=== PATIENT | female | born 1955 | race Caucasian/White ===

== ENCOUNTER 2018-06-25 16:10 | Outpatient (CLI) | payer OTHER, SELFPAY ==
[2018-06-25 16:38] LABS: HCT 44.9 % (36.0-46.0); HGB 14.8 g/dL (12.0-15.5); Mean Corpuscular Hemoglobin 27.6 pg (27.0-33.0); Mean Corpuscular Volume 83.8 fL (80-95); Mean Platelet Volume 11.6 fL (8.0-11.0); Platelet Count 257 x1000/uL (130-400); RBC 5.36 m/cumm (4.00-5.20); RBC Distribution Width 13.9 % (11.7-14.6); White Blood Cell Count 8.05 k/cumm (4.4-10.8)
[2018-06-25 16:57] LABS: Hemoglobin A1C 10.6 % (4.5-6.2)
[2018-06-25 17:26] LABS: ALT 65 U/L (12-78); AST 36 U/L (15-37); Albumin 3.7 g/dL (3.4-5.0); Alkaline Phosphatase 86 U/L (46-116); Anion Gap 8.1 mmol/L (3-11); BUN 12 mg/dL (7-18); Bilirubin, Total 0.5 mg/dL (0.2-1.0); CO2 28.9 mmol/L (21.0-32.0); Calcium 9.7 mg/dL (8.5-10.1); Chloride 98 mmol/L (98-107); Cholesterol 282 mg/dL (50-200); Glucose 204 mg/dL (70-100); HDL Cholesterol 49 mg/dL (40-60); LDL CHOLESTEROL 202 mg/dL (<100); Potassium 4.6 mmol/L (3.5-5.1); Sodium 135 mmol/L (136-145); TSH 2.28 uIU/mL (0.358-3.74); Triglyceride 281 mg/dL (30-150)
== END 2018-06-25 16:30 ==
PROVIDERS: PCP Family Medicine; Visit Provider Family Medicine
DX: E78.5 Hyperlipidemia, unspecified (principal); E11.9 Type 2 diabetes mellitus without complications; E03.9 Hypothyroidism, unspecified
CPT/HCPCS: 36415; 80053; 80061; 82306; 83721; 85027; 83036; 84443

== ENCOUNTER 2018-12-12 11:00 | Outpatient (CLI) | payer OTHER, SELFPAY ==
[2018-12-12 13:09] LABS: HCT 41.9 % (36.0-46.0); HGB 13.8 g/dL (12.0-15.5)
== END 2018-12-12 11:20 ==
PROVIDERS: PCP Family Medicine
DX: T14.8XXA Other injury of unspecified body region, initial encounter (principal); S30.1XXA Contusion of abdominal wall, initial encounter
CPT/HCPCS: 36415; 85014; 85018

== ENCOUNTER 2019-01-02 09:44 | Outpatient (CLI) | payer OTHER, SELFPAY ==
[2019-01-02 11:21] LABS: Hemoglobin A1C 11.3 % (4.5-6.2)
[2019-01-02 11:56] LABS: Anion Gap 7.4 mmol/L (3-11); BUN 15 mg/dL (7-18); CO2 27.6 mmol/L (21.0-32.0); CREATININE 0.62 mg/dL (0.55-1.02); Calcium 9.7 mg/dL (8.5-10.1); Chloride 99 mmol/L (98-107); Glucose 300 mg/dL (70-100); Potassium 4.9 mmol/L (3.5-5.1); Sodium 134 mmol/L (136-145)
[2019-01-02 13:34] LABS: COMMENT (LAB VIEW ONLY) 145.89 mg/dL; Microalb ug/mg Crea 10.1 ug/mg Cr
[2019-01-02 13:50] LABS: Calculated LDL 181; Cholesterol 271 mg/dL (50-200); HDL Cholesterol 51 mg/dL (40-60); Triglyceride 199 mg/dL (30-150)
[2019-01-03 06:22] LABS: Vitamin D 25 Total 26.2 ng/ml (30-100)
== END 2019-01-02 10:04 ==
PROVIDERS: PCP Family Medicine; Visit Provider Family Medicine
DX: E11.65 Type 2 diabetes mellitus with hyperglycemia (principal); E55.9 Vitamin D deficiency, unspecified
CPT/HCPCS: 36415; 80048; 80061; 82306; 83721; 82043; 82570; 83036

== ENCOUNTER 2019-01-30 00:34 | Outpatient (CLI) | payer OTHER, SELFPAY ==
--- NOTE | 2019-01-30 14:01 | MERGE_ITS ---
*[facility]* *[facility]* [address] [place] [address] Date of study: 01/30/2019 Transthoracic Echocardiography M-mode, complete 2D, complete spectral Doppler, and color Doppler *STUDY CONCLUSIONS* Summary: 1. Left ventricle: The cavity size was normal. Wall thickness was normal. Systolic function was normal. The estimated ejection fraction was 60-65%. Wall motion was normal; there were no regional wall motion abnormalities. 2. Aortic valve: There was mild to moderate stenosis. Peak velocity (S): 2.6m/sec. Mean gradient (S): 15mm Hg. Valve area (VTI): 1.4cm^2. 3. Right ventricle: The cavity size was normal. Wall thickness was normal. Systolic function was normal. *PATIENT PRESENTATION* Height: 160cm (63in ) S/D Pressure: 135 / 77 Weight: 109.8kg (241.5lb ) BSA: 2.27m^2 Test start time: 02:10 PM. Test stop time: 04:10 PM. PERFORMING Unknown ORDERING Yi Edwards REFERRING Yi Edwards PERFORMING [facility] MAINTENANCE DATA ANALYST RT Devon Ordaz)JOE (CT) *PROCEDURE DATA* Procedure information: The patient was identified by two identifiers. This study was interpreted by [facility]. Pertinent images and digital data are archived for permanent storage and are available for subsequent review. Comparison was made to the study of 10/01/2003. Study status: Routine. Transthoracic echocardiography. M-mode, complete 2D, complete spectral Doppler, and color Doppler. A Transthoracic Echocardiogram was performed. Scanning was performed from the parasternal, apical, subcostal, and suprasternal notch acoustic windows. Images were obtained using an [id number] cardiac ultrasound machine. Image quality was good. Study completion: The patient tolerated the procedure well. There were no complications. History: PMH: Cardiac murmur systolic R01.1. *CARDIAC ANATOMY* Left ventricle: The cavity size was normal. Wall thickness was normal. Systolic function was normal. The estimated ejection fraction was 60-65%. Wall motion was normal; there were no regional wall motion abnormalities. Some parameters suggest diastolic dysfunction. Aortic valve: Trileaflet; mildly thickened, mildly calcified leaflets. Valve mobility was restricted. Doppler: There was mild to moderate stenosis. There was no significant regurgitation. VTI ratio of LVOT to aortic valve: 0.44. Valve area (VTI): 1.4cm^2. Indexed valve area (VTI): 0.6cm^2/m^2. Peak velocity ratio of LVOT to aortic valve: 0.4. Valve area (Vmax): 1.3cm^2. Indexed valve area (Vmax): 0.6cm^2/m^2. Mean velocity ratio of LVOT to aortic valve: 0.45. Valve area (Vmean): 1.4cm^2. Indexed valve area (Vmean): 0.6cm^2/m^2. Mean gradient (S): 15mm Hg. Peak gradient (S): 27.8mm Hg. Aorta: Aortic root: The aortic root was normal in size. Ascending aorta: The ascending aorta was normal in size. Mitral valve: Mildly thickened leaflets. Mobility was not restricted. Doppler: Transvalvular velocity was within the normal range. There was no evidence for stenosis. There was no significant regurgitation. Valve area by pressure half-time: 3.4cm^2. Indexed valve area by pressure half-time: 1.5cm^2/m^2. Left atrium: The atrium was normal in size. Right ventricle: The cavity size was normal. Wall thickness was normal. Systolic function was normal. Pulmonic valve: Structurally normal valve. Doppler: Transvalvular velocity was within the normal range. There was no evidence for stenosis. There was trivial regurgitation. Peak gradient (S): 4mm Hg. Tricuspid valve: Structurally normal valve. Doppler: Transvalvular velocity was within the normal range. There was no evidence for stenosis. There was trivial regurgitation. Pulmonary artery: Systolic pressure could not be accurately estimated. Right atrium: The atrium was normal in size. Pericardium: There was no pericardial effusion. Systemic veins: Inferior vena cava: Not well visualized. The vessel was normal in size. Baseline ECG: Normal sinus rhythm. Measurements Left ventricle Value Reference LV ID, ED, PLAX 4.8 cm 3.5 - 6.0 LV ID, ES, PLAX 3.1 cm 2.1 - 4.0 LV PW thickness, ED, PLAX 0.9 cm LV end-diastolic volume, 1-p A2C 124 ml LV ejection fraction, 1-p A2C 58 % LV end-diastolic volume, 1-p A4C 87 ml LV ejection fraction, 1-p A4C 62 % LV e', lateral 0.079 m/sec LV E/e', lateral 8 LV e', medial 0.073 m/sec LV E/e', medial 8 LV e', average 0.076 m/sec LV E/e', average 8 Ventricular septum Value Reference IVS thickness, ED, PLAX 0.9 cm LVOT Value Reference LVOT ID, S 2.0 cm LVOT ID, A-P 2.0 cm LVOT area 3.1 cm^2 LVOT peak velocity, S 1.05 m/sec LVOT mean velocity, S 0.82 m/sec LVOT VTI, S 22.7 cm LVOT peak gradient, S 4.4 mm Hg LVOT mean gradient, S 3 mm Hg Stroke volume (SV), LVOT DP 66 ml Stroke index (SV/bsa), LVOT DP 29 ml/m^2 Aortic valve Value Reference Aortic valve peak velocity, S 2.6 m/sec Aortic valve mean velocity, S 1.8 m/sec Aortic valve VTI, S 51.0 cm Aortic mean gradient, S 15 mm Hg Aortic peak gradient, S 27.8 mm Hg VTI ratio, LVOT/AV 0.44 Aortic valve area, VTI 1.4 cm^2 Velocity ratio, peak, LVOT/AV 0.4 Aortic valve area, peak velocity 1.3 cm^2 Velocity ratio, mean, LVOT/AV 0.45 Aortic valve area, mean velocity 1.4 cm^2 Aortic valve area/bsa, mean velocity 0.6 cm^2/m^2 Aorta Value Reference Aortic root ID, ED 2.7 cm Ascending aorta ID, A-P, S 2.8 cm RVOT Value Reference RVOT VTI, S 17.9 cm Left atrium Value Reference LA ID, A-P, ES 4.0 cm LA ID/bsa, A-P 1.8 cm/m^2 <=2.2 LA volume, ES, 2-p 37 ml LA volume/bsa, ES, 2-p 16 ml/m^2 LA/aortic root ratio 1.5 Mitral valve Value Reference Mitral E-wave peak velocity 0.6 m/sec Mitral A-wave peak velocity 0.76 m/sec Mitral deceleration time 221 ms 150 - 230 Mitral pressure half-time 64 ms Mitral E/A ratio, peak 0.79 Mitral valve area, PHT, DP 3.4 cm^2 Pulmonary veins Value Reference Pulmonary vein peak velocity, S 0.6 m/sec Pulmonary vein peak velocity, D 0.45 m/sec Pulmonary vein velocity ratio, peak, 1.32 S/D Pulmonary vein A-wave reversal peak 0.31 m/sec velocity Pulmonary vein A-wave reversal 111 ms duration Tricuspid valve Value Reference Tricuspid regurg peak velocity 2.2 m/sec Tricuspid peak RV-RA gradient 18.7 mm Hg Right atrium Value Reference RA area, ES, A4C 14.3 cm^2 8.3 - 19.5 Pulmonic valve Value Reference Pulmonic peak gradient, S 4 mm Hg Pulmonic regurg velocity, ED 1 m/sec Legend: (L) and (H) dorian values outside specified reference range. I have personally reviewed the images and have reviewed and edited the reported findings. Electronically signed by Kj Alvarez 01/31/2019 08:25
== END 2019-01-30 00:54 ==
PROVIDERS: PCP Family Medicine; Visit Provider Family Medicine
DX: R01.1 Cardiac murmur, unspecified (principal); I10 Essential (primary) hypertension; E11.9 Type 2 diabetes mellitus without complications; I35.0 Nonrheumatic aortic (valve) stenosis
CPT/HCPCS: 93306

== ENCOUNTER 2019-04-29 22:49 | Emergency (ER) | payer OTHER, SELFPAY ==
[2019-04-29 22:52] VITALS: BP 160/80; PULSE 100; RESP 24; TEMP 36.2; O2SAT 99
--- NOTE | 2019-04-29 23:11 | ED.GENADUL_ITS ---
Discharge Plan Disposition Patient Disposition: HOME Condition: Good Discharge Details Chief Complaint: HeadInjury Clinical Impression: Multiple abrasions, Contusion of right lower leg, initial encounter, Fall (on) (from) other stairs and steps, initial encounter Primary Care Provider: Yi Edwards ED Provider: Avery Aguilar [place] Meds and New Rx's Prescriptions: Continued Collegen Powder 1 applic PO DAILY RF: 0 MCT Oil 7.7 kcal/mL oil 15 ml PO DAILY RF: 0 omega-3 fatty acids [Fish Oil Concentrate] 1,000 mg capsule 1,000 mg PO DAILY RF: 0 ascorbic acid (vitamin C) [Vitamin C With Ronna Hips] 500 MG tablet 500 mg PO daily prn RF: 0 vitamin B complex 1 EACH tablet 1 ea PO daily prn RF: 0 Calcium Magnesium + D 1 EACH tablet 1 ea PO BID PRN RF: 0 C-PAP RF: 0 triamcinolone acetonide 15 GM cream 1 addison Topical BID PRNQty: 15 RF: 4 chlorhexidine gluconate [Hibiclens] 236 ML liquid 1 addison Topical DAILY PRNQty: 236 RF: 11 clotrimazole-betamethasone 15 GM cream 15 gm Topical BID PRNQty: 2 RF: 2 ibuprofen 600 MG tablet 600 mg PO Q8H PRN Qty: 100 RF: 3 Lantus Solostar U-100 Insulin 100 UNIT/1 ML insulin pen 50 u SQ HS Qty: 4 RF: 4 levothyroxine 75 mcg tablet 75 mcg PO DAILY Qty: 90 RF: 2 cholecalciferol (vitamin D3) 1,000 unit tablet 2,000 unit PO DAILY RF: 0 losartan 25 mg tablet 25 mg PO DAILY Qty: 90 RF: 4 fluconazole 150 mg tablet 150 mg PO ONCE Qty: 6 RF: 2 metformin [Glucophage] 850 mg tablet 850 mg PO BID Qty: 180 RF: 4 (DME) Blood Glucose Test Strip See Rx Instructions .ROUTE .MEDSUPPLY Qty: 100 RF: 4 (DME) pen needle, diabetic [Comfort EZ Pen [place]] 31 gauge x 3/16 needle See Rx Instructions .ROUTE .MEDSUPPLY Qty: 100 RF: 4 Discharge Instructions Instructions: Contusion in Adults (ED), Abrasion (ED) Additional Instructions: You may use acetaminophen or ibuprofen for discomfort. Ice the contusion on your lower leg for the next couple of days. Keep your abrasions clean and dry. Follow-up with primary care next week if continued problems. Return to ED for neurologic changes, mental status changes, difficulty breathing, abdominal pain, vomiting, signs of infection. Referrals: Yi Edwards MD [Primary Care Provider] - Medical Decision Making Patient complains of some mild neck pain while she is been here. She does not have midline tenderness. Will scan her head and C-spine. There are no lacerations requiring closing. Just some abrasions on the scalp right elbow. She has no midline spinal tenderness of the back. Pelvis is stable. Chest wall is nontender. Extremities are unremarkable. No imaging or laboratory studies required. Tetanus status is up-to-date as there are no tetanus prone wounds and last TdaP was 2010. CT head and cervical spine negative. Chest x-ray was ordered as she complained of pain between her scapula when she arrived in the radiology suite. This is negative. Patient can be discharged home. Ibuprofen or acetaminophen as needed for pain. Keep abrasions clean and dry. Follow-up with primary care next week if any issues. Return to ED for neurologic changes, mental status changes, difficulty breathing, abdominal pain. HPI General Mode of arrival: EMS . Date/Time Provider Initiated Documentation: 04/29/19 23:03 . Limitations to Documentation: no limitations . Information obtained by: patient and RN notes reviewed . HPI Narrative: Patient presents to ED by ambulance status post fall down a couple of her basement steps. She was trying to get a pallet up the stairs. She lost her balance on the second or third step up and fell backwards. She struck her head on another pallet that was in the basement. She did not have a loss of consciousness. She felt woozy and wobbly but was able to stand. She has some right leg pain from where the pallet she was carrying fell on her. She denies any neck pain. She has some low back pain but that is a chronic problem and she cannot tell whether it is worse or not. She was able to stand and ambulate. She denies chest pain or shortness of breath. She denies numbness, tingling, weakness. She does have a headache. There is no nausea or vomiting. Related Data Home Medications Medication Instructions Recorded Confirmed ascorbic acid (vitamin C) [Vitamin 500 mg PO daily prn 11/01/12 04/29/19 C With Ronna Hips] vitamin B complex 1 ea PO daily prn 11/01/12 04/29/19 Calcium Magnesium + D 1 ea PO BID PRN 04/16/13 04/29/19 C-Pap 07/04/14 01/03/19 triamcinolone acetonide 1 addison TOPICAL BID PRN #15 gm 09/16/14 04/29/19 chlorhexidine gluconate [Hibiclens] 1 addison TOPICAL DAILY PRN #236 ml 08/01/17 04/29/19 clotrimazole-betamethasone 15 gm TOPICAL BID PRN #2 tube 08/30/17 04/29/19 ibuprofen 600 mg PO Q8H PRN #100 tab-cap 12/22/17 04/29/19 Lantus Solostar U-100 Insulin 50 u SQ HS #4 box 01/17/18 04/29/19 levothyroxine 75 mcg tablet 75 mcg PO DAILY #90 tab-cap 06/04/18 04/29/19 cholecalciferol (vitamin D3) 1,000 2,000 unit PO DAILY tab 06/27/18 04/29/19 unit (25 mcg) tablet losartan 25 mg tablet 25 mg PO DAILY #90 tab 07/14/18 04/29/19 omega-3 fatty acids 1,000 mg 1,000 mg PO DAILY 12/12/18 04/29/19 capsule Collegen Powder 1 applic PO DAILY 01/03/19 04/29/19 medium chain triglycerides 7.7 15 ml PO DAILY ml 01/03/19 04/29/19 kcal/mL oral oil fluconazole 150 mg tablet 150 mg PO ONCE #6 tab 01/22/19 04/29/19 metformin 850 mg tablet 850 mg PO BID #180 tab-cap 01/22/19 04/29/19 blood sugar diagnostic #100 each 03/14/19 pen needle, diabetic 31 gauge x #100 each 03/14/1910/13 Previous Rx's Medication Instructions Recorded ibuprofen 600 mg PO Q8H PRN #100 tab-cap 12/22/17 Lantus Solostar U-100 Insulin 50 u SQ HS #4 box 01/17/18 levothyroxine 75 mcg tablet 75 mcg PO DAILY #90 tab-cap 06/04/18 losartan 25 mg tablet 25 mg PO DAILY #90 tab 07/14/18 fluconazole 150 mg tablet 150 mg PO ONCE #6 tab 01/22/19 metformin 850 mg tablet 850 mg PO BID #180 tab-cap 01/22/19 blood sugar diagnostic #100 each 03/14/19 pen needle, diabetic 31 gauge x #100 each 03/14/1910/13 Allergies Allergy/AdvReac Type Severity Reaction Status Date / Time lisinopril AdvReac Mild tickle in Verified 04/29/19 22:59 throat doxycycline AdvReac YEAST Verified 04/29/19 22:59 INFECTION erythromycin base AdvReac YEAST Verified 04/29/19 22:59 INFECTION methylprednisolone AdvReac GI UPSET Verified 04/29/19 22:59 tramadol AdvReac GI UPSET Verified 04/29/19 22:59 General Stated Complaint: HeadInjury HALINA: 3 Review of Systems Review of Systems Narrative: As documented in HPI otherwise negative as below. Const: no fever, chills, weakness Resp: no cough, SOB, pleuritic pain CV: no CP, diaphoresis, edema, syncope GI: no abdominal pain, nausea, vomiting, diarrhea Neuro: headache; no numbness, focal weakness, confusion [facility] Medical History Depressive disorder (Chronic) Essential hypertension (Chronic 07/26/13) Hyperlipidemia (Chronic) Hypothyroidism (Chronic 11/01/12) Obstructive sleep apnea syndrome (Chronic) inital study at [facility] [place], [place], f/u study 02/24/12 at [facility], severe sleep apnea. C-pap Uncontrolled type 2 diabetes mellitus (Chronic) Surgical History Appendectomy (~1987) Social History Smoking/Tobacco Use Status: Never Alcohol Intake: never Drug use: Never Substance use type: does not use Do you feel safe at home: Yes Do you feel safe in your relationship?: Yes Exam Narrative Exam Narrative: Vitals: Afebrile. Elevated blood pressure and heart rate. Normal O2 saturation on room air. Const: WDWN female in NAD. HEENT: NC. Abrasion right frontotempral scalp. Normal facial exam. Eyes: PERRL and EOMI. Neck: Supple. Trachea midline. No midline spine pain. Lungs: Normal respiratory effort. Lungs are clear. No chest wall pain. Cor: RRR without murmur/gallop. Good radial pulses. GI: Soft. NT/ND. No guarding or rebound. Back: No bruising or abrasions. No midline spine tenderness. Neuro: A+O x 3. GCS 15. CN grossly in tact. Good strength and sensation. Ext: No pelvic instability or tenderness. No deformity. Tender medial distal carmona area on right. No bony tenderness. Normal ROM of joints. Skin: Warm and dry. Abrasion on right elbow. Bruise on RLE distal. Course Vital Signs Vital signs: Vital Signs Temperature 97.2 F L 04/29/19 22:52 Pulse 100 H 04/29/19 22:52 Respiratory Rate 24 04/29/19 22:52 Blood Pressure 160/80 H 04/29/19 22:52 Pulse Oximetry 99 04/29/19 22:52 Temperature 97.2 F L 04/29/19 22:52 Temperature Source Tympanic 04/29/19 22:52 Pulse 100 H 04/29/19 22:52 Respiratory Rate 24 04/29/19 22:52 Blood Pressure 160/80 H 04/29/19 22:52 Pulse Oximetry 99 04/29/19 22:52 Oxygen Delivery Method Room Air 04/29/19 22:52 Oxygen Flow Rate 0 04/29/19 22:52 Pain Level 4 04/29/19 22:52
--- NOTE | 2019-04-29 23:50 | DI.RAD_ITS ---
EXAM: XR CHEST 2V PA LATERAL CLINICAL HISTORY: trauma/fall. TECHNIQUE: 2D digital imaging was performed. COMPARISON: CHEST 2 VIEWS PA,LAT from 09/03/2012 FINDINGS: LUNGS: Clear. No pleural abnormality seen. HEART: Normal. MEDIASTINUM: Normal. OTHER FINDINGS:Normal. IMPRESSION: No acute pulmonary findings.
--- NOTE | 2019-04-29 23:50 | DI.CT_ITS ---
EXAM: CT HEAD CERVICAL SPINE WO CLINICAL HISTORY: trauma/fell. TECHNIQUE: Multiple contiguous axial images of the head and cervical spine were obtained. COMPARISON: No exams were available for comparison FINDINGS: The ventricles and sulci are consistent with the patient's age. There is no evidence of intracranial hemorrhage, acute midline shift, or mass effect. The ventricles are intact. The basilar cisterns a re patent. The visualized paranasal sinuses are clear as are the mastoid air cells. No evidence of a calvarial fracture is identified. There is a scalp hematoma and laceration overlying the right par ietal bone. There is normal alignment of the cervical spine. No acute fracture or subluxation is present. The o dontoid is intact. The lateral masses are well aligned. The soft tissues are unremarkable. IMPRESSION: No acute intracranial process. No acute fracture or subluxation in the cervical spine.
[2019-04-30 00:01] VITALS: BP 141/84; PULSE 95; RESP 16; O2SAT 95
--- NOTE | 2019-04-30 00:02 | DI.VRAD_ITS ---
PROCEDURE INFORMATION: Exam: XR Chest, 2 Views Exam date and time: 04/29/2019 11:48 PM Clinical history: 63 years old, female; Injury or trauma; Initial encounter; Blunt trauma (contusions or hematomas); Injury date: 04/29/19; Injury details: Fall /trauma, mid back pain, cough for a week TECHNIQUE: Imaging protocol: XR of the chest Views: 2 views. COMPARISON: CR CHEST 2 VIEWS PA,LAT 09/03/2012 12:02 PM FINDINGS: Lungs: Unremarkable. No consolidation. Pleural space: Unremarkable. No evidence of pneumothorax. Heart/Mediastinum: Unremarkable. Heart size within normal limits for technique. Bones/joints: Unremarkable. IMPRESSION: No acute findings. Dictated and Authenticated by: Wally Skinner MD. Ordering:BRUCE Varela MD
--- NOTE | 2019-04-30 00:02 | DI.VRAD_ITS ---
PROCEDURE INFORMATION: Exam: CT Head without contrast Exam date and time: 04/29/2019 11:15 PM Clinical history: 63 years old, female; Injury or trauma; Initial encounter; Blunt trauma (contusions or hematomas); Without loss of consciousness; Injury date: 04/29/19; Injury details: Trauma/fall head laceration on right parietal TECHNIQUE: Imaging protocol: Computed tomography of the head without contrast. Radiation optimization: All CT scans at this facility use at least one of these dose optimization techniques: automated exposure control; mA and/or kV adjustment per patient size (includes targeted exams where dose is matched to clinical indication); or iterative reconstruction. COMPARISON: No relevant prior studies available. FINDINGS: Brain: Typical for age. No hemorrhage. No evidence of acute infarct. No mass. Ventricles: No ventriculomegaly. Bones/joints: Unremarkable. Sinuses: No sinus fluid. Mastoid air cells: Unremarkable. Soft tissues: Small amount of right parietal soft tissue gas consistent with history of laceration.. IMPRESSION: No acute intracranial abnormality. PROCEDURE INFORMATION: Exam: CT Cervical Spine Without Contrast Exam date and time: 04/29/2019 11:15 PM Clinical history: 63 years old, female; Injury or trauma; Initial encounter; Blunt trauma (contusions or hematomas); Without loss of consciousness; Injury date: 04/29/19; Injury details: Trauma/fall head laceration on right parietal TECHNIQUE: Imaging protocol: Computed tomography images of the cervical spine without contrast. Radiation optimization: All CT scans at this facility use at least one of these dose optimization techniques: automated exposure control; mA and/or kV adjustment per patient size (includes targeted exams where dose is matched to clinical indication); or iterative reconstruction. COMPARISON: No relevant prior studies available. FINDINGS: Vertebrae: No acute fracture. Normal alignment. Vertebral body heights preserved. Discs/Spinal canal/Neural foramina: Typical for age. Soft tissues: Unremarkable. Lungs: Lung apices are unremarkable as visualized. IMPRESSION: No acute findings. Dictated and Authenticated by: Wally Skinner MD. Ordering:BRUCE Varela MD
[2019-04-30 00:18] VITALS: BP 141/84; PULSE 95; RESP 16; O2SAT 95
== END 2019-04-30 00:17 | disposition home or self-care (01) ==
LOC: ER 04-30 00:23
PROVIDERS: Emergency Provider Emergency Medicine; PCP Family Medicine
DX: S00.01XA Abrasion of scalp, initial encounter (principal); S50.311A Abrasion of right elbow, initial encounter; M54.6 Pain in thoracic spine; W10.8XXA Fall (on) (from) other stairs and steps, initial encounter
CPT/HCPCS: 90471; 99284; 70450; 71046; 72125

== ENCOUNTER 2019-05-02 10:49 | Outpatient (CLI) | payer OTHER, SELFPAY ==
--- NOTE | 2019-05-02 14:30 | DI.RAD_ITS ---
EXAM: XR HIP LT COMPLETE AP PELVIS INDICATION: left hip pain and stiffness. COMPARISON: No exams were available for comparison TECHNIQUE: 2D digital imaging was performed. FINDINGS: Three views were obtained. Note is made of calcified uterine fibroids. There appears to be minimal narrowing of the cartilaginous joint spaces of both hips superiorly. Mild acetabular spurring and gr eater trochanteric spurring noted bilaterally. No other significant abnormality hips seen. IMPRESSION:
== END 2019-05-02 11:09 ==
PROVIDERS: PCP Family Medicine; Visit Provider Nurse Practitioner Family
DX: M25.552 Pain in left hip (principal); M25.652 Stiffness of left hip, not elsewhere classified; D25.9 Leiomyoma of uterus, unspecified
CPT/HCPCS: 73502

== ENCOUNTER 2019-05-09 09:29 | Outpatient (CLI) | payer OTHER, SELFPAY ==
[2019-05-09 10:43] LABS: Anion Gap 7.9 mmol/L (3-11); BUN 10 mg/dL (7-18); CO2 29.1 mmol/L (21.0-32.0); CREATININE 0.73 mg/dL (0.55-1.02); Calcium 9.3 mg/dL (8.5-10.1); Chloride 100 mmol/L (98-107); Glucose 374 mg/dL (70-100); Potassium 4.9 mmol/L (3.5-5.1); Sodium 137 mmol/L (136-145); TSH 2.15 uIU/mL (0.36-3.74)
[2019-05-09 10:57] LABS: Vitamin D 25 Total 25.9 ng/ml (30-100)
[2019-05-09 13:05] LABS: Hemoglobin A1C 10.8 % (4.5-6.2)
== END 2019-05-09 09:49 ==
PROVIDERS: PCP Family Medicine; Visit Provider Family Medicine
DX: E11.9 Type 2 diabetes mellitus without complications (principal); E03.9 Hypothyroidism, unspecified; E55.9 Vitamin D deficiency, unspecified; I10 Essential (primary) hypertension
CPT/HCPCS: 36415; 80048; 82306; 83036; 84443

== ENCOUNTER 2019-10-24 09:39 | Outpatient (CLI) | payer OTHER, SELFPAY ==
[2019-10-24 10:51] LABS: Hemoglobin A1C 12.8 % (3.8-5.6)
[2019-10-24 11:54] LABS: ALT 26 U/L (14-59); AST 17 U/L (15-37); Albumin 3.6 g/dL (3.4-5.0); Alkaline Phosphatase 80 U/L (46-116); Anion Gap 7.3 mmol/L (3-11); BUN 11 mg/dL (7-18); Bilirubin, Total 0.6 mg/dL (0.2-1.0); CO2 30.7 mmol/L (21.0-32.0); CREATININE 0.76 mg/dL (0.55-1.02); Calcium 8.9 mg/dL (8.5-10.1); Calculated LDL 166 mg/dL (<100); Chloride 99 mmol/L (98-107); Cholesterol 251 mg/dL (<200); Glucose 281 mg/dL (74-106); HDL Cholesterol 49 mg/dL (40-60); Potassium 4.6 mmol/L (3.5-5.1); Sodium 137 mmol/L (136-145); Total Protein 6.7 g/dL (6.4-8.2); Triglyceride 181 mg/dL (<150)
[2019-10-24 12:18] LABS: Vitamin D 25 Total 30.3 ng/ml (30-100)
[2019-10-24 12:50] LABS: Microalb ug/mg Crea 15.3 ug/mg Cr
== END 2019-10-24 09:59 ==
PROVIDERS: PCP Family Medicine; Visit Provider Family Medicine
DX: I10 Essential (primary) hypertension (principal); E11.9 Type 2 diabetes mellitus without complications; E55.9 Vitamin D deficiency, unspecified
CPT/HCPCS: 36415; 80053; 80061; 82306; 82043; 82570; 83036

== ENCOUNTER 2020-06-15 03:01 | Outpatient (CLI) | payer OTHER, SELFPAY ==
[2020-06-15 17:53] LABS: Hemoglobin A1C 11.4 % (<5.7)
[2020-06-15 18:26] LABS: ALT 28 U/L (14-59); AST 12 U/L (15-37); Albumin 3.7 g/dL (3.4-5.0); Alkaline Phosphatase 75 U/L (46-116); Anion Gap 10.3 mmol/L (3-11); BUN 14 mg/dL (7-18); Bilirubin, Total 0.5 mg/dL (0.2-1.0); CO2 27.7 mmol/L (21.0-32.0); CREATININE 0.86 mg/dL (0.55-1.02); Calcium 9.5 mg/dL (8.5-10.1); Calculated LDL 145 mg/dL (<100); Chloride 101 mmol/L (98-107); Cholesterol 253 mg/dL (<200); Glucose 267 mg/dL (74-106); HDL Cholesterol 53 mg/dL (40-60); Potassium 4.5 mmol/L (3.5-5.1); Sodium 139 mmol/L (136-145); TSH 1.29 uIU/mL (0.36-3.74); Total Protein 6.8 g/dL (6.4-8.2); Triglyceride 279 mg/dL (<150)
== END 2020-06-15 03:21 ==
PROVIDERS: PCP Family Medicine; Visit Provider Family Medicine
DX: E03.9 Hypothyroidism, unspecified (principal); E11.9 Type 2 diabetes mellitus without complications
CPT/HCPCS: 36415; 80053; 80061; 83036; 84443

== ENCOUNTER 2020-06-16 11:24 | Outpatient (REF) | payer OTHER, SELFPAY ==
[2020-06-16 13:10] LABS: Microalb ug/mg Crea 11.9 ug/mg Cr
[2020-06-16 21:11] LABS: Abs Immature Grans 0.02 10^3/uL (0.0-0.06); Absolute Basophil Count 0.03 10^3/uL (0.0-0.2); Absolute Eosinophil Count 0.08 10^3/uL (0.0-0.7); Absolute Lymphocyte Count 2.17 10^3/uL (1.2-3.4); Absolute Monocyte Count 0.52 10^3/uL (0.1-0.8); Absolute Neutrophil Count 5.46 10^3/uL (1.2-6.7); Basophils % 0.4; FREE T4 1.13 ng/dL (0.76-1.46); Immature Grans % 0.2; Lymphocytes % 26.2; Monocytes % 6.3; Neutrophils % 65.9; WBC 8.28 10^3/uL (4.4-10.8)
== END 2020-06-16 11:44 ==
LOC: LBN 11:24
PROVIDERS: Physician Assistant; PCP Family Medicine; Visit Provider Family Medicine
DX: R42 Dizziness and giddiness (principal); E11.9 Type 2 diabetes mellitus without complications
CPT/HCPCS: 85048; 82043; 82570; 84439; 85007

== ENCOUNTER 2020-06-23 01:37 | Outpatient (CLI) | payer OTHER, SELFPAY ==
--- NOTE | 2020-06-23 07:30 | DI.CT_ITS ---
EXAM: CT CHEST PE CTA CLINICAL HISTORY: right chest swelling near clavicle, chest pressure,R22.2. TECHNIQUE: Imaging Protocol: Axial CT angiography was performed with multi-slice acquisition and mu lti-planar and/or 3D reconstructions. CONTRAST MATERIAL: Intravenous: Omnipaque 350 Contrast volume:100 ml COMPARISON: CR,XR XR CHEST 2V PA LATERAL from 04/29/2019 FINDINGS: Pulmonary Arteries: No evidence of filling defect to suggest pulmonary emboli. Tracheobronchial tree: Patent where visualized. Mediastinum and Tita: No dominant adenopathy or fluid collection. Pulmonary parenchyma: No consolidation or dominant measurable mass. No architectural distortion. Pleura: No effusion or pneumothorax. Heart: The heart is not dilated. No coronary artery calcifications are seen. Aorta: Thoracic aorta non-dilated. Upper abdomen: Enlarged fatty liver. Bones: Normal. Soft tissues: No soft tissue swelling, hematoma or fluid collection is seen. IMPRESSION: No evidence of pulmonary embolism or other acute abnormality.. RADIATION DOSE DELIVERED: 691.72mGy.cm Total DLP DATA REPOSITORY: All CT scans at this facility are submitted to the National Radiology Data Registry (NRDR) Dose Index Registry (DIR) with the [employer] (ACR). RADIATION OPTIMIZATION: All CT scans at this facility use at least one of these dose optimization te chniques: automated exposure control; mA and/or kV adjustment per patient size (includes targeted exa ms where dose is matched to clinical indication); or iterative reconstruction.
[2020-06-23] MEDS: Omnipaque 350 MG/ML 100 ML BTL IJ (09:04)
[2020-06-23] MEDS: Normal Saline - Diluent 50 ML VIAL IV (09:06)
== END 2020-06-23 01:57 ==
PROVIDERS: PCP Family Medicine; Visit Provider Physician Assistant
DX: R22.2 Localized swelling, mass and lump, trunk (principal)
CPT/HCPCS: 71275; J3490

== ENCOUNTER 2020-07-13 02:09 | Outpatient (CLI) | payer OTHER, SELFPAY ==
[2020-07-14 17:30] LABS: COVID-19 RT-PCR UVMMC Result Negative (Negative)
== END 2020-07-13 02:29 ==
PROVIDERS: PCP Family Medicine; Visit Provider Internal Medicine Cardiovascular Disease
DX: Z11.59 Encounter for screening for other viral diseases (principal); Z01.818 Encounter for other preprocedural examination
CPT/HCPCS: U0003

== ENCOUNTER 2020-07-20 00:04 | Outpatient (CLI) | payer OTHER, SELFPAY ==
--- NOTE | 2020-07-20 13:00 | ETT_ITS ---
APPROVED REPORT Exam: Exercise Treadmill Patient Location: Out-Patient Room/Bed: Stress Nurse: Kalie Rose RN BMI: 36.90 Baseline Rhythm: Sinus Rhythm Indications: Dizziness and intermittent chest pressure. Medical History Medical History: Depression, HTN, HLD, TREE w/ CPAP, DM II Cardiac Medications: Metformin. Allergies: Erythromycine base, Lisinopril, Doxycycline. Cardiac Risk Factors: FHX of CAD, HTN, Hyperlipidemia, Diabetes (non-insulin) Previous Cardiac Procedures: None. Pretest Chest Pain Characteristics: None. Exercise History: Sedentary Physical Disabilities: None. Lung Sounds: Clear to auscultation Heart Sounds: Regular, Murmur Stress Test Details Test: Exercise stress testing was performed using a Cricket protocol. Rest Stress HR Resting HR Supine: 70 bpm Max Heart Rate (APMHR): 158 bpm Resting HR Standin bpm Target HR (85% APMHR): 134 bpm Max HR Achieved: 143 bpm % of APMHR: 90 Recovery HR: 75 bpm HR response to stress: Normal HR response to stress BP Resting BP Supine: 128/76 mmHg Resting BP Standin/74 mmHg Max BP: 158/78 mmHg Recovery BP: 126/78 mmHg BP response to stress: Normal blood pressure response to stress. ECG Resting ECG: Sinus Rhythm Stress ECG: Sinus Tachycardia ST Change: No significant ST segment changes noted. Arrhythmia: PVCs, couplets Recovery ECG: Sinus Rhythm Recovery ST Change: No significant ST segment changes noted. Recovery Arrhythmia: PVCs. Clinical Reason for Termination: Dyspnea Stress Symptoms: Dyspnea Exercise duration: 6 min0 sec Highest Stage Reached: Stage 2: 2.5 mph at 12% grade. Exercise capacity: 7.05 METs Stress ECG Conclusion 1. Patient exercised for 6 minutes (7 METS). The patient no symptoms suggestive of ischemia. 2. There is no evidence of ischemia on the ECG portion of the exam. 3. The Mendoza Score ( 5) estimates an annual cardiovascular mortality of 1% and a five year survival of 94%. Using the Mendoza Score there is a low probability of any angiographic coronary disease. Stress Test Summary STAGE Time (mins) Speed (mph) Grade (%) HR BP SYMPTOMS METS Supine 70 128/76 Standing 79 120/74 1 3 1.7 10 120 132/70 4.6 2 6 2.5 12 143 158/78 7 3 min recovery 79 140/80 6 min recovery 75 126/78
== END 2020-07-20 00:24 ==
PROVIDERS: PCP Family Medicine; Visit Provider Physician Assistant
DX: R42 Dizziness and giddiness (principal); R07.89 Other chest pain; I10 Essential (primary) hypertension; E78.5 Hyperlipidemia, unspecified; E11.9 Type 2 diabetes mellitus without complications; Z82.49 Family history of ischemic heart disease and other diseases of the circulatory system
CPT/HCPCS: 93017

== ENCOUNTER 2021-01-12 02:37 | Outpatient (CLI) | payer OTHER, SELFPAY ==
[2021-01-12 13:37] LABS: Hemoglobin A1C 12.1 % (<5.7)
[2021-01-12 13:41] LABS: ALT 31 U/L (14-59); AST 13 U/L (15-37); Albumin 3.6 g/dL (3.4-5.0); Alkaline Phosphatase 84 U/L (46-116); Anion Gap 7.5 mmol/L (3-11); BUN 14 mg/dL (7-18); Bilirubin, Total 0.8 mg/dL (0.2-1.0); CO2 28.5 mmol/L (21.0-32.0); CREATININE 0.7 mg/dL (0.55-1.02); Calcium 9.2 mg/dL (8.5-10.1); Calculated LDL 214 mg/dL (<100); Chloride 99 mmol/L (98-107); Cholesterol 300 mg/dL (<200); Glucose 333 mg/dL (74-106); HDL Cholesterol 49 mg/dL (40-60); Potassium 4.6 mmol/L (3.5-5.1); Sodium 135 mmol/L (136-145); TSH 1.18 uIU/mL (0.36-3.74); Total Protein 6.7 g/dL (6.4-8.2); Triglyceride 185 mg/dL (<150)
[2021-01-12 14:01] LABS: COMMENT (LAB VIEW ONLY) 98.52 mg/dL; Microalb ug/mg Crea 16.7 ug/mg Cr
[2021-01-14 01:11] LABS: Vitamin D 25 Total 46.7 ng/mL (30-100)
== END 2021-01-12 02:38 | disposition home or self-care (01) ==
LOC: LBO 02:37
PROVIDERS: PCP Family Medicine; Visit Provider Family Medicine
DX: E11.9 Type 2 diabetes mellitus without complications (principal); E03.9 Hypothyroidism, unspecified; E55.9 Vitamin D deficiency, unspecified
CPT/HCPCS: 36415; 80053; 80061; 82306; 82043; 82570; 83036; 84443

== ENCOUNTER 2021-02-24 16:58 | Outpatient (CLI) | payer OTHER, SELFPAY ==
--- NOTE | 2021-02-24 12:15 | DI.RAD_ITS ---
Exam(s) XR ANKLE LT COMPLETE EXAM: XR ANKLE LT COMPLETE CLINICAL HISTORY: left medial ankle pain for 2 months; uncon. DM,m25.572. TECHNIQUE: 2D digital imaging was performed. COMPARISON: CR LEFT ANKLE COMPLETE from 12/08/2012 FINDINGS: No evidence of fracture or widening of the mortise. Talar dome appears unremarkable. Large inferior calcaneal spur noted. Subtle irregularity base of the 5th metacarpal is unchanged, having been a pr evious fracture site. Subtalar joint appears unremarkable. IMPRESSION: DATA REPOSITORY: RADIATION DOSE DELIVERED:
== END 2021-02-24 17:18 ==
PROVIDERS: PCP Family Medicine; Visit Provider Family Medicine
DX: M25.572 Pain in left ankle and joints of left foot (principal); E11.9 Type 2 diabetes mellitus without complications
CPT/HCPCS: 73610

== ENCOUNTER 2021-03-08 04:26 | Outpatient (CLI) | payer OTHER, SELFPAY ==
--- NOTE | 2021-03-08 14:00 | NS.NUTBLAN_ITS ---
Emmy was referred for Medical Nutrition Therapy for Diabetes Self Management Education. Emmy is 66 year old female with long standing hx of Dm2. Current DM meds include metformin 850 mg BID. Most recent A1C (01/12/21) 12.1% up from 11.4% in 05/2020. Emmy reports that she stopped taking insulin in part due to not having a refrigerator at home. She reports trying to follow keto diet most of the time. BMI 38 indicating class 2 obesity. Diet recall indicates mostly well balanced meals during day. Does not cook at home, eats most meals at [facility]. Does not use CPAP at this time and reports high stress in view of new apartment which has bed bugs. Emmy does no exercise on regular basis due to pain. Session today focused on how to limit and count carb intake at meals to help reduce blood sugars. Current A1C indicates poor glycemic control. Emmy is interested in getting a Lanette 2 continous glucose monitor to better get idea of how to manage her blood sugars. Aware that she may need to restart insulin or other DM meds for better glycemic control. Follow up scheduled for CGM placement this week. Follow up to be planned 14 days after placement for ABG down load.
--- NOTE | 2021-03-12 10:22 | DIABASSESS_ITS ---
Date of service: 03/12/21 Time of Service: 10:23 Diabetes Note NOTE: Placed Lanette 2 [employer] Glucose Monitor and provided instruction. Follow up meeting scheduled for 03/25/21 at 2 pm for data download. Time Spent in Nutritional Counseling and Treatment: 10
== END 2021-03-08 04:27 | disposition home or self-care (01) ==
PROVIDERS: PCP Family Medicine; Visit Provider Dietitian, Registered
DX: E11.65 Type 2 diabetes mellitus with hyperglycemia (principal); Z79.84 Long term (current) use of oral hypoglycemic drugs; E66.8 Other obesity; Z68.38 Body mass index [BMI] 38.0-38.9, adult; Z71.3 Dietary counseling and surveillance
CPT/HCPCS: 97802

== ENCOUNTER 2021-03-25 04:25 | Outpatient (CLI) | payer OTHER, SELFPAY ==
--- NOTE | 2021-03-26 13:00 | NS.NUTBLAN_ITS ---
Emmy returns after using Lanette 2 CGM for last 14 days. DM meds include metformin 850 mg qd, recently picked up lantus with instructions to start with 15 units q HS, increase by 3 units every 3 days until fasting blood sugars < 140 mg/dl. Food record indicates mostly well balanced meals, eats at hospital for meals. Does not eat at night. Does not exercise due to pain. Has not used any insulin for several months due to recent stress/move. Session today focused on benefits of using insulin in her blood sugar control. Her primary reluctance in using insulin is weight gain. Reviewed strategies for weight management while using long and short acting insulin. Reviewed Ambulatory Glucose Profile and encouraged her to continue to use her CGM and to follow up with sports book writer weekly until blood sugars in better control. Session today also reviewed dangers of hyperglycemia, risk for dehydration, infection and HHS. Reviewed hydration instructions for blood sugars > 250 mg/dl and encouraged her to call MD anytime BS > 300 mg/dl or go to ER. Ambulatory Glucose Profile: 03/10/21-03/23/21 0% in Target Range (70-180 mg/dl) 99% in Very High Range (>250 mg/dl) Average Glucose: 336 mg/dl Glucose Management Indicator (similar to A1C): 11.1% No Hypoglycemic events. Reviewed how to inject lantus insulin and encouraged Emmy to reach out to her PCP as will need Lantus BID or switch to longer acting insulin such as Toujeo for better long acting coverage. Emmy's diet is not a major contributing factor and very high blood sugar readings, suspect very high insulin resistance. Recommend consider adding SGLT2 as well. Follow up in 1 week.
--- NOTE | 2021-04-09 15:24 | W.DIABETESNO ---
Date of service: 04/09/21 Time of Service: 15:24 Diabetes Note NOTE: Emmy returns for Diabetes Self Management Education. We downloaded glycemic data from last 14 days. She has started to take lantus 20 units HS, along with 850 mg metformin BID. Food log indicates mostly well balanced meals. CGM data indicates reduction in very high blood sugar values but continues to have elevated blood sugars with average of 281mg/dl. She reports she no longer has readings > 350 mg/dl. Encouraged Emmy to increase lantus by 3 units every 3 days until her fasting blood sugars are 120 mg/dl. She is not interested in increasing lantus more than 5 mg every 14 days. Follow up scheduled for 04/23/21 at 2 pm. Goal is to have her time in range (70-180 mg/dl) > 70% of time, and high blood sugars < 25% of time. Time Spent in Nutritional Counseling and Treatment: 30
--- NOTE | 2021-04-23 14:56 | W.DIABETESNO ---
Date of service: 04/23/21 Time of Service: 14:56 Diabetes Note NOTE: Met with Emmy to down load last 14 days of glycemic data. PMH: poorly controlled DM2, hyperlipidemia, hypothyroidism, HTN, obesity. Average glucose improving at 221 mg/dl (down from 350 mg/dl), with blood sugars 181-250 mg/dl 53% of time, > 250mg/dl 25% of time and no hypoglycemic events. DM meds include metformin 850 mg/dl, 30 units lantus HS. Stopped taking statin meds due to leg cramps. Most recent labs indicate very high lipids. Suspect Emmy has metabolic syndrome with trunkel obesity, with elevated blood sugars and lipids. Reviewed food record- overall doing well with counting carbs except at breakfast. Reviewed breakfast combinations that will provide better glycemic control. Encouraged daily walking. Encouraged Emmy to increase lantus by 3 units every 3 days until fasting blood sugars < 140 mg/dl. Emmy is very hesitant to increase lantus as is fearful of weight gain. Encouraged Emmy to consider adding another DM medication that is not associated with weight gain and that can also reduce CVD- GLP1ra, SGLT2i. Provided information on these medications so she can review pros/cons and talk to her PCP and make an educated decision. Has annual visit with Dr. Edwards next week. Overall, CGM is helping Emmy to improve her glycemic control with daily feed back. Will continue to follow up every 2 weeks. Time Spent in Nutritional Counseling and Treatment: 20
--- NOTE | 2021-05-07 14:56 | W.NUTRFU ---
Date of service: 05/07/21 Time of Service: 14:56 Nutritional Follow up NOTE: Met with Emmy to down load last 14 days of Lanette 2 Continuous Glucose Monitor. DM meds: Lantus 30 u q HS, metformin 850 mg BID. BMI 38. Supplements with D3, B complex, MCT oil, omega 3, [place], tumeric. AGP in last 14 days (04/24/21-05/07/21) Average Glucose: 246 mg/dl In Target Range (70-180 mg/dl): 5% of time High range (180-250 mg/dl) 55% of time Very high range (>250 mg/dl) 40% of time Very poor glycemic control. Reviewed with Emmy that her elevated blood sugars and lipids put her at very high risk for a stroke and/or CVD. Emmy reports that she has difficulty changing her eating pattern or increasing exercise. Reviewed importance of increasing lantus, 3 units every 3 days until fasting sugars < 140 mg/dl. Also, encouraged Emym to consider adding GLP1ra and/or SGLT2i. Emmy to research both and may consider as realizes blood sugars are not improving. She is equally resistant to take a statin, encouraged her to consider a statin in view of her high lipids and to take daily baby aspirin. In view of sedentary life style and inability to alter her meal plan to control blood sugars, medication adjustments will be only effective way to improve glycemic control. Will continue to work with Emmy and encourage her to adjust Dm meds (increase lantus, add additional non insulin anti diabetic med) and take daily statin/aspirin. Encouraged her to continue to use CGM and continue food log to better determine causes of elevated blood sugars. Will follow up prn. Time Spent in Nutritional Counseling and Treatment: 20
== END 2021-03-25 04:26 | disposition home or self-care (01) ==
LOC: DS 04:25
PROVIDERS: PCP Family Medicine; Visit Provider Dietitian, Registered
DX: E11.65 Type 2 diabetes mellitus with hyperglycemia (principal); Z79.84 Long term (current) use of oral hypoglycemic drugs; Z79.4 Long term (current) use of insulin; Z71.3 Dietary counseling and surveillance
CPT/HCPCS: 97803

== ENCOUNTER 2021-06-01 01:41 | Outpatient (CLI) | payer OTHER, SELFPAY ==
--- NOTE | 2021-05-25 10:05 | W.DIABETESNO ---
Date of service: 05/25/21 Time of Service: 10:05 Diabetes Note NOTE: Met with Emmy today and down loaded last 14 days of CGM data. Glycemic control slowly getting better with reductions in average glucose, increase in time in range and decrease in very high blood sugars. Continues to have elevated blood sugars most of the time putting her at increased risk for comorbidities related to poorly controlled DM2. Encouraged her again to consider increasing lantus, 3 units every 3 days until fasting blood sugars < 140 mg/dl. Also, encouraged her to talk to her PCP about adding Trulicity q week and/or Jardiance. Last Month This Month 04/24/21-05/07/21 (05/11/21-05/24/21) Goal Average Glucose: 246 mg/dl 205 Less than 180 In Target Range (70-180 mg/dl) 5% of time 32% 70% or higher High range (180-250 mg/dl) 55% of time 51% 25% Very high range (>250 mg/dl) 40% of time 17% 5% or lower Will continue to follow and support Time Spent in Nutritional Counseling and Treatment: 20
--- NOTE | 2021-06-01 07:30 | DI.MAMMO_ITS ---
Exam(s) MAMMO SCREENING EXAM: MAMMO SCREENING CLINICAL HISTORY: screening,Z12.39 TECHNIQUE: Mammograms were interpreted according to the usual protocol including computer analysis w [employer] CAD system, tomosynthesis and C-view imaging. COMPARISON: FINDINGS: The breasts are of moderate density with fairly symmetrical distribution of fibroglandular tissue. N o dominant mass or clumped microcalcification is identified in either breast. The current examinatio n is compared with previous examinations including August 2017 and there has been no gross interval change in appearance in comparison with the prior studies. IMPRESSION: No specific evidence of malignancy at this time. Routine screening examinations are suggested at yea rly intervals in this age group according to the ACS ACR guidelines. BI-RADS Category 1 - Negative Breast Density - Category B - Scattered areas of fibroglandular density
== END 2021-06-01 02:01 ==
PROVIDERS: PCP Family Medicine; Visit Provider Family Medicine
DX: Z12.31 Encounter for screening mammogram for malignant neoplasm of breast (principal)
CPT/HCPCS: 77063; 77067

== ENCOUNTER 2021-06-17 01:28 | Outpatient (CLI) | payer OTHER, SELFPAY ==
--- NOTE | 2021-06-17 14:02 | DI.US_ITS ---
APPROVED REPORT EXAM: Comprehensive 2D, Doppler, and color-flow Echocardiogram Patient Location: Out-Patient Robotics Testing Technician: Brenna Villeda RDCS (AE) Indications: Aortic Stenosis Other Information Study Quality: Good Conclusion Normal left ventricular wall thickness and chamber size. Estimated ejection fraction is 60%. Wall m otion is normal Normal right ventricular size and systolic function Both atria are normal in size Aortic valve is trileaflet and sclerotic without stenosis or regurgitation Normal mitral valve with trace regurgitation Normal tricuspid valve with trace regurgitation. Estimated right ventricular systolic pressure is 28 mmHg Normal pulmonic valve with trace regurgitation Normal aortic root and ascending aorta Wall motion Left Ventricle The left ventricle is normal size. The left ventricular systolic function is normal. The left ventric ular ejection fraction is within the normal range. There is normal left ventricular wall thickness. T here is normal LV segmental wall motion. There is no ventricular septal defect visualized. LVEF is 60 %. Right Ventricle The right ventricle is normal size. The right ventricular systolic function is normal. The RVSP is 28 .6 mmHg. Atria The left atrium size is normal. The right atrium size is normal. The interatrial septum is intact wit h no evidence for an atrial septal defect. Aortic Valve Aortic valve is calcified. Aortic valve is trileaflet. No hemodynamically significant valvular aortic stenosis. No aortic regurgitation is present. Mitral Valve The mitral valve is normal in structure. No evidence of mitral valve stenosis. Trace mitral regurgita tion. Tricuspid Valve The tricuspid valve is normal in structure. There is no tricuspid valve stenosis. Trace tricuspid reg urgitation. Pulmonic Valve The pulmonary valve is normal in structure. There is no pulmonic valvular stenosis. Trace pulmonic re gurgitation. Great Vessels The aortic root is normal in size. The ascending aorta is normal in size. Aortic arch is normal in ca liber. IVC is normal in size and collapses >50% with inspiration. Pericardium There is no pericardial effusion. 2D Dimensions IVSD d PLAX 0.86 cm F: 0.6-1.0 LV Vol A2C d MOD 103.0 mL LVPW d PLAX 0.85 cm F: 0.6 - 1.0 LV Vol A4C d MOD 115.0 mL LVID d PLAX 4.72 cm F: 3.8 - 5.2 LA vol/ BSA A2C s A-L 17.1 mL/m2 LVDs 3.25 cm F: 2.2 - 3.5 LA vol/ BSA A4C s A-L 20.7 mL/m2 Ao Root d 2.72 cm F: 2.7 - 3.3 LA Vol/ BSA Biplane s A-L 20.1 mL/m2 RA Area A4C 10.88 cm2 LA Area A4C s MOD 15.91 cm2 RA Vol/ BSA A4C s A-L 10.3 mL/m2 LA Area A2C s MOD 13.56 cm2 Ao Asc Diam d 3.15 cm F: 2.3 - 3.1 LV EF A4C MOD 58.6 % LV EF Teichholz 57.3 % LV EF A2C MOD 59.2 % LVEF (Vergara's) 58.80 % F: 54 - 74 LV EF Biplane MOD 58.8 % LV Volume 81.69 mL F: 46 - 106 SV 64.19 mL LV Volume Index 40.64 mL/m2 F: 29 - 61 SV Index 31.89 mL/m2 LV Vol Biplane MOD 109.2 mL FS 30.05 % M-Mode TAPSE 2.39 cm (M/F) >1.7 LV Diastology MV E' medial 0.078 (>0.07 m/s) E/A Ratio 0.8 LV E/e MED 8.50 (<14) MV E Vmax 0.67 (0.4-1.3 m/s) MV E' lateral 0.088 (>0.1 m/s) MV A Vmax 0.80 (0.4-1.3 m/s) LV E/e LAT 7.55 (<14) MV E/A Ratio 0.82 MV E/E' medial 8.52 MV E/E' lateral 7.57 Aortic Valve LVOT Area 2.95 cm2 AoV Area Vmax 1.49 cm2 LVOT Vmax 1.05 m/s AoV Area/ BSA (Vmax) 0.74 cm2/m2 LVOT Mean Olegario. 0.71 m/s KASSANDRA Mean Olegario. 1.37 cm2 LVOT Peak Grad 4.4 mmHg KASSANDRA Mean Olegario. Index 0.68 cm2/m2 LVOT Mean Grad 2.4 mmHg LVOT VTI 0.230 m LVOT Diam s 1.90 cm AoV Vmax 2.07 m/s Velocity Ratio 0.50 AoV Mean Olegario. 1.54 m/s AoV Peak Grad 17.2 mmHg LVOT SV 67.90 mL AoV Mean Grad 10.5 mmHg AoV VTI 0.421 m AoV Area VTI 1.61 cm2 AoV Area/ BSA (VTI) 0.80 cm/m2 Mitral Valve MV DT 209 (160-240 msec) MV PHT 60 msec MV Area PHT 3.64 cm2 MV VTI 0.298 m MV Area VTI 2.28 (4.0-6.0 cm2) Pulmonary Valve PV Vmax 1.00 (0.5-1.5 m/s) RVOT Peak Gr. 2.02 mmHg PV Peak Grad 4.0 mmHg RVOT Mean Gr. 1.10 mmHg PV Mean Grad 2.2 mmHg RVOT VTI 0.153 m PV VTI 0.197 m RVOT Vmax 0.71 m/s Tricuspid Valve TR Peak Grad 25.6 mmHg TR Vmax 2.53 m/s RA Pressure 3.00 mmHg RVSP (TR) 28.6 mmHg
== END 2021-06-17 01:48 ==
PROVIDERS: PCP Family Medicine; Visit Provider Family Medicine
DX: I35.0 Nonrheumatic aortic (valve) stenosis (principal)
CPT/HCPCS: 93306

== ENCOUNTER 2021-06-28 11:39 | Emergency (ER) | payer OTHER, SELFPAY ==
[2021-06-28 11:58] VITALS: BP 152/84; PULSE 57; RESP 18; TEMP 36.2; O2SAT 97
--- NOTE | 2021-06-28 12:15 | DI.CT_ITS ---
Exam(s) CT CHEST PE CTA EXAM: CT CHEST PE CTA CLINICAL HISTORY: Covid positive, R/O PE. TECHNIQUE: Imaging Protocol: CT angiography of the chest was performed using pulmonary embolus romel col. Multi planar reconstructions were performed. CONTRAST MATERIAL: Intravenous: Omnipaque 350 Contrast volume: 100 cc COMPARISON: CT CT CHEST PE CTA from 06/23/2020 FINDINGS: CHEST: PULMONARY ARTERIES: There are no intraluminal filling defects to suggest acute pulmonary emboli. LUNGS: There are patchy infiltrates throughout both lung valadez involving all lobes of both lungs. N o pleural effusions. No focal findings in trachea and mainstem bronchi.. There are no pleural effus ions. MEDIASTINUM: Slightly prominent bilateral hilar lymph nodes as well as subcarinal lymph nodes noted. Visualized thyroid unremarkable. CARDIAC: Heart size is upper normal. There is no pericardial effusion.Caliber of the thoracic aorta is within normal limits. There is no significant shift of the interventricular septum. PARTIALLY VISUALIZED UPPERMOST ABDOMEN: No obvious findings OSSEOUS: No significant osseous lesions.. IMPRESSION: 1. No evidence of acute pulmonary emboli. However, there are patchy bilateral infiltrates suspicious for Covid pneumonia. There are no pleural effusions. 2. Small lymph nodes both hilar regions and subcarinal region noted. RADIATION DOSE DELIVERED: 606.65mGy.cm Total DLP DATA REPOSITORY: All CT scans at this facility are submitted to the National Radiology Data Registry (NRDR) Dose Index Registry (DIR) with the [employer] (ACR). RADIATION OPTIMIZATION: All CT scans at this facility use at least one of these dose optimization te chniques: automated exposure control; mA and/or kV adjustment per patient size (includes targeted exa ms where dose is matched to clinical indication); or iterative reconstruction.
--- NOTE | 2021-06-28 12:15 | RT.EKG_ITS ---
APPROVED REPORT Exam: Resting ECG Reason for Exam: SOB Patient Location: E HR:108 bpm ECG Measurements Heart Rate 108 AXIS RI 149 P 66 QRSd 85 QRS -26 QT 314 T 88 QTc 421 Conclusion Sinus tachycardia...rate> 99 Atrial premature complexes...SV complexes w/ short R-R intvls Sinus. PACs. Anterior Q waves. No STEMI. I have reviewed and interpreted ECG and agree with software generated interpretation.
--- NOTE | 2021-06-28 13:35 | ED.GENADUL_ITS ---
Discharge Plan Disposition Patient Disposition: OTHER Condition: Poor Discharge Details Chief Complaint: RespSymp Clinical Impression: COVID-19, Atrial fibrillation Primary Care Provider: Jose Crawford ED Provider: Yoselin Waller Meds and New Rx's Prescriptions: No Action MCT Oil 7.7 kcal/mL oil 15 ml PO DAILY RF: 0 Collegen Powder 1 applic PO PRN RF: 0 burgamont PO RF: 0 omega-3 fatty acids [Fish Oil Concentrate] 1,000 mg capsule 1,000 mg PO DAILY RF: 0 metformin 850 mg tablet 850 mg PO BID Qty: 180 RF: 4 Lantus Solostar U-100 Insulin 100 unit/mL (3 mL) insulin pen 30 unit subcut HS Qty: 4 RF: 4 levothyroxine 75 mcg tablet 75 mcg PO DAILY Qty: 90 RF: 2 ascorbic acid (vitamin C) [Vitamin C With Ronna Hips] 500 MG tablet 500 mg PO daily prn RF: 0 vitamin B complex 1 EACH tablet 1 ea PO daily prn RF: 0 C-PAP RF: 0 triamcinolone acetonide 15 GM cream 1 addison Topical BID PRNQty: 15 RF: 4 chlorhexidine gluconate [Hibiclens] 236 ML liquid 1 addison Topical DAILY PRNQty: 236 RF: 11 cholecalciferol (vitamin D3) 1,000 unit tablet 2,000 unit PO DAILY RF: 0 ibuprofen 600 mg tablet 600 mg PO Q8H PRN Qty: 100 RF: 3 (DME) Blood Glucose Test Strip See Rx Instructions .ROUTE .MEDSUPPLY Qty: 100 RF: 4 (DME) lancets Misc See Rx Instructions .MEDSUPPLY Qty: 100 RF: 3 alcohol swabs [Alcohol Pads] Pads, Medicated 2 pad topical BID Qty: 200 RF: 5 (DME) blood glucose control, normal [OneTouch Ultra Control] Solution See Rx Instructions .ROUTE .MEDSUPPLY Qty: 1 RF: 6 (DME) FreeStyle [place] 2 [place] Misc See Rx Instructions .ROUTE .MEDSUPPLY Qty: 1 RF: 0 (DME) FreeStyle [place] 2 Sensor Kit See Rx Instructions .ROUTE .MEDSUPPLY Qty: 2 RF: 2 (DME) pen needle, diabetic [Comfort EZ Pen [place]] 31 gauge x 3/16 needle See Rx Instructions .ROUTE .MEDSUPPLY Qty: 100 RF: 4 clotrimazole-betamethasone 1-0.05 % cream 1 applic Topical BID PRN (Reason: ERYTHEMA) Qty: 45 RF: 0 benzonatate 100 mg capsule 100 mg PO TID PRN (Reason: cough) Qty: 30 RF: 0 Discharge Data Discharge Date/Time-TO BE ENTERED AT DEPARTURE: 06/28/21 18:48 Medical Decision Making <Ashli Zurita - Last Filed: 06/29/21 10:10> 65-year-old female presents to the ER with chief complaint of worsening shor tness of breath and cough since Monday. Patient was recently diagnosed with Covid on , she is not vaccinated. She reports increased rib pain bilaterally, fever, loss of taste or smell, body ache. She has been taking vitamins including zinc and Echinacea with little to no relief. She does have a past medical history of aortic stenosis, hyperlipidemia, hypothyroidism, type 2 diabetes, obesity. Work-up ordered including CBC CMP serial troponins, EKG, chest CT to rule out PE. Patient is agreeable to the albuterol inhaler however declined the steroid at this time. Albuterol was provided here in the department. I also did discuss that she is a candidate for the monoclonal antibodies which patient refused at this time. 1518: Spoke with Dr. Wood with radiologist regarding CT chest. Negative for PE positive bilateral infiltrate most likely Covid type pneumonia no pleural effusion. Care is to be handed off to oncoming provider NEVIN Messer pending repeat troponin. Patient was given p.o. doxycycline and will plan to discharge patient with this. She does have an allergy to doxycycline with a reaction of yeast infection. Will recommend Diflucan and yogurt or probiotic while on this medication. This text was generated using [employer] dictation system, please disregard any oddities of phrase or misspellings. <NEVIN Monroe - Last Filed: 07/01/21 20:18> Care transition myself from Bre Zurita NP. Please see her initial note regarding history, presentation and exam. In brief, patient is a pleasant 65-year-old female presenting today with chief complaint of shortness of breath. Known COVID-19 positive. Patient refused antibody infusion. At the time I assumed care, repeat troponin pending. Patient was found to have bilateral Covid pneumonia. Question of the patient has been in atrial fibrillation, no history of this that we are aware of. Patient is not anticoagulated. had initially ordered doxycycline. However, patient has doxycycline allergy listed. I spoke with patient regarding her allergy. She has had yeast infection with Doxycycline in the past. I am concerned that increasing her to a stronger antibiotic, such as levofloxacin, would have increased risk as well. I discussed this with the patient. Azithromycin has not had excellent coverage in this area. Instead, I will plan to continue with the doxycycline and will plan to treat potential yeast infection with Diflucan. I did have shared decision making with the patient and she is in agreement with this plan. Patient requesting to leave, I advised that we are waiting for her repeat troponin. As her heart rate has been so erratic, intermittently appearing in atrial fibrillation, I advised that she stay for this as in patient admission is likely needed. She agrees to stay. If patient is able to be d/c'ed to home, plan to send with Iris, Marisalucan. Patient's [id number] Score is 4. Patient has been hesistant to begin medications but will have a shared decision making conversation regarding starting anticoagulation. Repeat troponin may change plan so will hold off until this has returned. She continues to be in and out of atrial fibrillation. While I was in with another patient, Ms. Patel eloped from the department. Prior to this, I had spoken with the patient about the importance of staying for her repeat troponin. Patent had capacity to elope. As I was with another patient, I did not have the opportunity to complete her d/c instructions. Nursing staff had already prepared to send patient home with enough Doxycycline for this evening but she did not wait for these and they were returned for pharmacy. If patient returns, will discuss anticoagulation with the patient, place a holter monitor, continue with the abx and start on Diflucan. HPI <Ashli Zurita - Last Filed: 06/29/21 10:10> General Mode of arrival: ambulatory . Date/Time Provider Initiated Documentation: 06/28/21 11:41 . Limitations to Documentation: no limitations . Information obtained by: patient, RN notes reviewed and old records reviewed . HPI Narrative: 65-year-old female presents to the ER with chief complaint of worsening shortness of breath and cough since Monday. Patient was recently diagnosed with Covid on , she is not vaccinated. She reports increased rib pain bilaterally, fever, loss of taste or smell, body ache. She has been taking vitamins including zinc and Echinacea with little to no relief. She does have a past medical history of aortic stenosis hyperlipidemia, hypothyroidism, type 2 diabetes, obesity. Related Data Home Medications Medication Instructions Recorded Confirmed ascorbic acid (vitamin C) [Vitamin 500 mg PO daily prn 11/01/12 06/28/21 C With Ronna Hips] vitamin B complex 1 ea PO daily prn 11/01/12 06/28/21 C-Pap 07/04/14 05/04/21 triamcinolone acetonide 1 addison TOPICAL BID PRN #15 gm 09/16/14 06/28/21 chlorhexidine gluconate [Hibiclens] 1 addison TOPICAL DAILY PRN #236 ml 08/01/17 06/28/21 cholecalciferol (vitamin D3) 25 2,000 unit PO DAILY tab 06/27/18 06/28/21 mcg (1,000 unit) tablet omega-3 fatty acids 1,000 mg 1,000 mg PO DAILY 12/12/18 06/28/21 capsule medium chain triglycerides 7.7 15 ml PO DAILY ml 01/03/19 06/28/21 kcal/mL oral oil ibuprofen 600 mg tablet 600 mg PO Q8H PRN #100 tab-cap 03/06/20 06/28/21 alcohol swabs 2 pad TOPICAL BID #200 ea 09/29/20 05/04/21 blood sugar diagnostic #100 each 09/29/20 05/04/21 lancets #100 ea 09/29/20 05/04/21 blood glucose control, normal #1 ea 09/30/20 05/04/21 Collegen Powder 1 applic PO PRN 02/23/21 06/28/21 burgamont PO 02/23/21 05/04/21 flash glucose scanning reader #1 ea 03/08/21 05/04/21 flash glucose sensor #2 ea 03/08/21 05/04/21 pen needle, diabetic 31 gauge x #100 each 03/19/21 05/04/21 3/16 metformin 850 mg tablet 850 mg PO BID #180 tab-cap 05/03/21 06/28/21 insulin glargine 100 unit/mL (3 30 unit SUBCUT HS #4 ml 05/04/21 06/28/21 mL) subcutaneous pen levothyroxine 75 mcg tablet 75 mcg PO DAILY #90 tab-cap 05/05/21 06/28/21 clotrimazole-betamethasone 1 1 applic TOPICAL BID PRN #45 g 06/22/21 06/28/21 %-0.05 % topical cream benzonatate 100 mg capsule 100 mg PO TID PRN #30 cap 06/29/21 Previous Rx's Medication Instructions Recorded ibuprofen 600 mg tablet 600 mg PO Q8H PRN #100 tab-cap 03/06/20 alcohol swabs 2 pad TOPICAL BID #200 ea 09/29/20 blood sugar diagnostic #100 each 09/29/20 lancets #100 ea 09/29/20 blood glucose control, normal #1 ea 09/30/20 flash glucose scanning reader #1 ea 03/08/21 flash glucose sensor #2 ea 03/08/21 pen needle, diabetic 31 gauge x #100 each 03/19/2110/13 metformin 850 mg tablet 850 mg PO BID #180 tab-cap 05/03/21 insulin glargine 100 unit/mL (3 30 unit SUBCUT HS #4 ml 05/04/21 mL) subcutaneous pen levothyroxine 75 mcg tablet 75 mcg PO DAILY #90 tab-cap 05/05/21 clotrimazole-betamethasone 1 1 applic TOPICAL BID PRN #45 g 06/22/21 %-0.05 % topical cream benzonatate 100 mg capsule 100 mg PO TID PRN #30 cap 06/29/21 Allergies Allergy/AdvReac Type Severity Reaction Status Date / Time lisinopril AdvReac Mild tickle in Verified 06/28/21 12:02 throat doxycycline AdvReac YEAST Verified 06/28/21 12:02 INFECTION erythromycin base AdvReac YEAST Verified 06/28/21 12:02 INFECTION methylprednisolone AdvReac GI UPSET Verified 06/28/21 12:02 tramadol AdvReac GI UPSET Verified 06/28/21 12:02 General Stated Complaint: RespSymp HALINA: 3 Review of Systems <Ashli Zurita - Last Filed: 06/29/21 10:10> All systems reviewed & are unremarkable except as noted in HPI and below Constitutional Constitutional: Reports fatigue, Denies fever(s), Reports lethargy, Reports weakness and Reports other (Loss of taste and smell) Cardiovascular Cardiovascular: Denies chest pain, Denies chest pain at rest, Denies leg edema, Reports dyspnea and Reports dyspnea on exertion Respiratory Respiratory: Reports cough, Reports pain with cough, Reports dyspnea and Reports dyspnea on exertion Gastrointestinal Gastrointestinal: Denies diarrhea, Reports nausea and Reports vomiting (24 hours ago) Genitourinary Genitourinary: Denies dysuria Neurologic Neurologic: Reports weakness Endocrine Endocrine: Reports fatigue [facility] <Ashli Zurita - Last Filed: 06/29/21 10:10> Active Problem List Severe aortic stenosis by prior echocardiogram (Acute) Bilateral carotid bruits (Acute) Left ankle pain (Acute) Left foot pain (Acute) Dizziness (Acute) Swelling in chest (Acute) Vitamin D deficiency (Acute) Depressive disorder (Chronic) Obstructive sleep apnea syndrome (Chronic) Uncontrolled type 2 diabetes mellitus (Chronic) Hypothyroidism (Chronic 11/01/12) Hyperlipidemia (Chronic) Essential hypertension (Chronic 07/26/13) Left hip pain (Chronic) Back pain (Chronic) Obesity (Acute) Non-alcoholic fatty liver disease (Acute 12/31/13) Surgical History History of appendectomy Family History Mother Essential hypertension Personal history of malignant neoplasm LUNG Heart disease Stroke Father Alcohol abuse Personal history of malignant neoplasm Liver Sister No problems noted. Sister No problems noted. Sister Depression Grandfather Stroke Grandfather No problems noted. Grandmother Personal history of malignant neoplasm BREAST Grandmother No problems noted. Social History Smoking/Tobacco Use Status: Never Second Hand Exposure: Yes Smoking risk assessment performed?: Yes Alcohol Intake: current Alcohol Intake frequency: a few times a month Alcohol type: wine Drug use: Never Substance use type: does not use Household members: none Housing: apartment Communication Needs: None Do you need help understanding health information?: Rarely Pets and animals: Yes Pets and animals: other Details: rabbit Sexually active: No Do you think of yourself as: straight/heterosexual Current gender identity: female What is your relationship status?: never How often do you talk on the phone with friends or family?: twice per week How often do you get together with friends or relatives?: once per week How often do you attend rastafarian or gnosticism services?: 4 or more times per year Panel score (0-1 are the most socially isolated patients): 2 What type of physical activity do you participate in: walking Duration: 15-30 minutes/day Frequency: 1-2 times per week Ludmila/Presybeterian: Mormon Seatbelt use: always Drive intox or ride w/intox 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 Appears stated age. Normal body habitus. Head: Normocephalic, no trauma. Eyes: Pupils PERRL, Red reflex noted, EOM's intact. Eyelids symmetrical without lesions, discharge, or swelling. ENT: Bilateral TM's WNL, External ear normal to inspection, no mastoid TTP, swelling, or erythema, Nasal turbinates WNL, no nasal discharge. Normal dentition, Posterior pharynx WNL, no exudate. Chest: RRR, Normal S1, S2, distal pulses intact. Resp: Scattered expiratory wheezes noted to auscultation bilaterally. Abdomen: Soft,, nontender, non-distended, Normoactive bowel sounds all 4 quads. Musculoskeletal: Normal gait, 5/5 strength to all four extremities. Skin: No suspicious rashes or lesions. Capillary refill less than 2 sec. Neurologic: Cranial nerves II-XII intact. Alert and oriented x 3. Motor: No deficits noted. Sensory: Intact bilaterally all 4 extremities. Reflexes: DTR's intact bilaterally.. Hematologic/Lymphatic: No ecchymosis, no lymphadenopathy. Course <Ashli Zurita - Last Filed: 06/29/21 10:10> Vital Signs Vital signs: Vital Signs Temperature 36.2 C L 06/28/21 11:58 Pulse 57 L 06/28/21 11:58 Respiratory Rate 18 06/28/21 11:58 Blood Pressure 152/84 H 06/28/21 11:58 Pulse Oximetry 97 06/28/21 11:58 Temperature 36.2 C L 06/28/21 11:58 Temperature Source Tympanic 06/28/21 11:58 Pulse 57 L 06/28/21 11:58 Respiratory Rate 18 06/28/21 11:58 Blood Pressure 152/84 H 06/28/21 11:58 Pulse Oximetry 97 06/28/21 11:58 Oxygen Delivery Method Room Air 06/28/21 11:58 Oxygen Flow Rate 0 06/28/21 11:58 Pain Level 0 06/28/21 11:58 Sign Out <Ashli Zurita - Last Filed: 06/29/21 10:10> Sign Out Data: Sign Out Comment: Pending repeat Troponin at 1644, Bilateral Covid Pneumonia. Send home with Doxycycline. First dose given here. Also in A-fib, not currently anticoagulated. Last updated by Ashli Zurita at 06/28/21 16:07
[2021-06-28 14:03] LABS: Abs Immature Grans 0.01 10^3/uL (0.0-0.06); Absolute Lymphocyte Count 0.87 10^3/uL (1.2-3.4); Absolute Monocyte Count 0.23 10^3/uL (0.1-0.8); Absolute Neutrophil Count 2.95 10^3/uL (1.2-6.7); HCT 47.5 % (36.0-46.0); HGB 15.4 g/dL (11.2-15.7); Immature Grans % 0.2; Lymphocytes % 21.4; MCH 26.8 pg (27.0-33.0); MCHC 32.4 % (32.0-36.0); MCV 82.8 fL (80-95); MPV 10.7 fL (8.0-11.0); Monocytes % 5.7; Neutrophils % 72.7; Nucleated RBC 0 %; Platelet Count 199 10^3/uL (130-400); RBC 5.74 10^6/uL (3.93-5.22); RDW 12.7 % (11.7-14.6); RDW-SD 38.3 fL; WBC 4.06 10^3/uL (4.4-10.8)
[2021-06-28] MEDS: Normal Saline 1,000 ML 150 ML IV (14:07)
[2021-06-28] MEDS: Albuterol HFA 8 GM 60 PUFF INH IH (14:09)
[2021-06-28 14:26] LABS: ALT 31 U/L (14-59); AST 28 U/L (15-37); Albumin 3.7 g/dL (3.4-5.0); Alkaline Phosphatase 74 U/L (46-116); Anion Gap 10.6 mmol/L (3-11); BUN 11 mg/dL (7-18); Bilirubin, Total 0.5 mg/dL (0.2-1.0); CO2 25.4 mmol/L (21.0-32.0); CREATININE 0.9 mg/dL (0.55-1.02); Calcium 9.1 mg/dL (8.5-10.1); Chloride 92 mmol/L (98-107); Glucose 363 mg/dL (74-106); LDH 248 U/L (81-234); Potassium 4.3 mmol/L (3.5-5.1); Sodium 128 mmol/L (136-145); Total Protein 7.9 g/dL (6.4-8.2)
[2021-06-28 14:29] LABS: Troponin I < 0.05 ng/mL (<0.06)
[2021-06-28 14:30] VITALS: PULSE 122; RESP 30; O2SAT 95
--- NOTE | 2021-06-28 14:30 | RT.EKG_ITS ---
APPROVED REPORT Exam: Resting ECG Reason for Exam: Tachycardia Patient Location: E HR:102 bpm ECG Measurements Heart Rate 102 AXIS RI [id number] P [id number] QRSd 84 QRS -27 QT 329 T 91 QTc 428 Conclusion Atrial fibrillation...? atrial activity Probable LVH with secondary repol abnrm...multiple LVH criteria
[2021-06-28] MEDS: Metoprolol 5 MG/5 ML VIAL 2.5 MG IVP (14:41)
[2021-06-28] MEDS: Normal Saline Flush 10 ML SYR IVP (14:58)
[2021-06-28] MEDS: Omnipaque 350 MG/ML 100 ML BTL IJ (14:58)
[2021-06-28 15:02] LABS: D-Dimer 938 ng/mlFEU (<500)
[2021-06-28] MEDS: Normal Saline 1,000 ML 1000 ML IV (15:36)
[2021-06-28] MEDS: Doxycycline Hyclate 100 MG CAP PO (17:27)
[2021-06-28 18:53] VITALS: RESP 30; O2SAT 95
[2021-06-28 18:54] LABS: Troponin I < 0.05 ng/mL (<0.06)
== END 2021-06-28 18:48 | disposition other institution (70) ==
PROVIDERS: Registered Nurse Emergency; Emergency Provider Physician Assistant; PCP Family Medicine
DX: U07.1 COVID-19 (principal); J12.82 Pneumonia due to coronavirus disease 2019; R06.02 Shortness of breath; M79.10 Myalgia, unspecified site; R50.9 Fever, unspecified; R43.0 Anosmia
CPT/HCPCS: 36415; 71275; 80053; 93005; 94640; 96361; 96374; 99285; 83615; 84484; 85025; 85379; 86140; 93010; J3490

== ENCOUNTER 2021-06-30 12:47 | Outpatient (CLI) | payer OTHER, SELFPAY ==
--- OUTSIDE RECORDS SUMMARY | 2021-06-30 12:50 | XMS_ITS ---
:1955 Author Care Team Providers Name Role Phone [facility] Primary Care Provider [phone] Allergies Code Code System Name Reaction Severity Status Onset NKDA ? Medications Name Status Start Date Stop Date ? ? levothyroxine 100 mcg capsule Active ? No t available Take 1 capsule every day by oral route. metformin 850 mg tablet Active ? Not avai lable Take 1 tablet twice a day by oral route. Problems Name Status Onset Date Source ? Diabetes Mellitus Active 09/09/2019 ? Obstructive Sleep Apnea Syndrome Active 09/09/2019 ? Pulmonary Hypertension Active 09/09/2019 ? Procedures None recorded. Results Lab Results None recorded. Past Encounters None recorded. Social History Tobacco Smoking Status Never Smoker Vaccine List None recorded. Plan of Care Reminders Provider Appointments None ? ? recorded. Lab None ? ? recorded. Referral None ? ? recorded. Procedures None ? ? recorded. Surgeries None ? ? recorded. Imaging None ? ? recorded. Vitals Height Weight BMI Blood Pressure 160.02 cm 104.69 kg 40.9 kg/m2 122/64 mm[Hg]
[2021-06-30 13:45] VITALS: BP 112/57; PULSE 94; RESP 16; TEMP 37.2; O2SAT 96
[2021-06-30] MEDS: Normal Saline 500 ML 30 ML IV (13:55)
[2021-06-30 13:59] VITALS: BP 124/70; PULSE 71; RESP 20; TEMP 37.2; O2SAT 95
[2021-06-30 14:20] VITALS: BP 121/66; PULSE 84; RESP 20; TEMP 37.6; O2SAT 96
[2021-06-30 14:50] VITALS: BP 118/56; PULSE 81; TEMP 37.3; O2SAT 93
== END 2021-06-30 12:48 | disposition home or self-care (01) ==
PROVIDERS: PCP Family Medicine; Visit Provider Family Medicine
DX: U07.1 COVID-19 (principal)
CPT/HCPCS: 96365

== ENCOUNTER 2021-07-02 11:30 | Inpatient (IN) | payer OTHER, SELFPAY ==
[2021-07-02] VITALS (50 sets, daily range): BP systolic 93–153; BP diastolic 59–96; PULSE 71–92; RESP 13–38; TEMP 35.8–36.7; O2SAT 87–97
--- NOTE | 2021-07-02 11:45 | DI.RAD_ITS ---
Exam(s) XR PORTABLE CHEST AP EXAM: XR PORTABLE CHEST AP CLINICAL HISTORY: cough TECHNIQUE: 2D digital imaging was performed of the chest. One image was obtained. An AP view was ob tained. COMPARISON: CR,XR XR CHEST 2V PA LATERAL from 04/29/[address] CHEST PE CTA from 06/28/[address] CHEST PE CTA from 06/28/2021 FINDINGS: MEDIASTINUM: Normal. HEART: Normal. PULMONARY VASCULATURE: Normal. LUNGS: There again seen bilateral patchy pulmonary infiltrates present. Findings remain consistent w ith pneumonia. PLEURAL SPACE: No pleural effusion or pneumothorax. BONE:Within normal limits for the patient's age. OTHER FINDINGS:Normal. IMPRESSION: Multifocal pneumonia. DATA REPOSITORY: RADIATION DOSE DELIVERED:
--- NOTE | 2021-07-02 12:00 | W.ED.GENAD ---
Discharge Plan Disposition Patient Disposition: [facility] INPATIENT Condition: Serious Discharge Details Clinical Impression: Pneumonia due to COVID-19 virus, Hypoxia Admit Date/Time: 07/02/21 13:33 Admit Provider: Esvin Mcdonald Attending Provider: Esvin Mcdonald Primary Care Provider: Jose Crawford ED Provider: Doug Lewis Discharge Data Discharge Date/Time-TO BE ENTERED AT DEPARTURE: 07/02/21 18:29 Medical Decision Making 65 yo female with hx of T2DM, TREE, HLD, HTN, who tested positive for covid Monday of last week, was seen on 06/28 with worsening shortness of breath and had cta showing no PE and eloped from the ED, who states she had MAB infusion this past Monday, who comes in with chief complaint of cough and worsening shortness of breath and has had room air saturations in the 80's. Continues to have fever, chills, cough, and dyspnea. She is speaking in full sentences with intermittent cough. She has diminished breath sounds at the bases otherwise clear lung sounds. Is noted to be hypoxic in the mid 80's during exam on room air. Suspect she is having worsening covid symptoms and is not vaccinated, is now in the mid 90's on 2L NC. Will obtain labs, chest xray and cultures and will likely need admission for her hypoxia. Will treat with dexamethasone as well. Pt'x xray shows continued multifocal pneumonia secondary to covid. She remains stable still requiring oxygen. She did demand she get ivermectin but I discussed it's not FDA approved therefore I was not going to order this, she is still willing to be admitted. I recommended she receive remdesivir as well and she declined this stating she heard from other people the side effects are not worth the benefit, and despite me trying to explain the benefits she would not accept it. Discussed with hospitalist who accepts for admission Differential Diagnosis Differential Diagnosis: covid, pneumonia Medical Records Medical records reviewed: Yes I reviewed the patient's medical records. Imaging Data Radiologic Study: Attestation: I personally reviewed and interpreted this imaging study as follows: Imaging: X-Ray Radiologist's impression: Exam(s) XR PORTABLE CHEST AP EXAM: XR PORTABLE CHEST AP CLINICAL HISTORY: cough TECHNIQUE: 2D digital imaging was performed of the chest. One image was obtained. An AP view was obtained. COMPARISON: CR,XR XR CHEST 2V PA LATERAL from 04/29/[address] CHEST PE CTA from 06/28/[address] CHEST PE CTA from 06/28/2021 FINDINGS: MEDIASTINUM: Normal. HEART: Normal. PULMONARY VASCULATURE: Normal. LUNGS: There again seen bilateral patchy pulmonary infiltrates present. Findings remain consistent with pneumonia. PLEURAL SPACE: No pleural effusion or pneumothorax. BONE:Within normal limits for the patient's age. OTHER FINDINGS:Normal. IMPRESSION: Multifocal pneumonia. Lab Data Lab results reviewed: Yes I reviewed the patient's lab results. HPI General Mode of arrival: ambulatory. Date/Time Provider Initiated Documentation: 07/02/21 11:30. Limitations to Documentation: no limitations. Information obtained by: patient. History of Present Illness 65 year old F presents to the emergency department with the chief complaint of shortness of breath, described as moderate, Patient started experiencing this week(s) (1) and it has been constant. Rest improves symptom(s), Movement worsens symptoms . Patient notes cough and fever/chills. Related Data Home Medications Medication Instructions Recorded Confirmed ascorbic acid (vitamin C) [Vitamin 500 mg PO daily prn 11/01/12 07/02/21 C With Ronna Hips] vitamin B complex 1 ea PO daily prn 11/01/12 07/02/21 C-Pap 07/04/14 05/04/21 triamcinolone acetonide 1 addison TOPICAL BID PRN #15 gm 09/16/14 07/02/21 chlorhexidine gluconate [Hibiclens] 1 addison TOPICAL DAILY PRN #236 ml 08/01/17 07/02/21 cholecalciferol (vitamin D3) 25 2,000 unit PO DAILY tab 06/27/18 07/02/21 mcg (1,000 unit) tablet omega-3 fatty acids 1,000 mg 1,000 mg PO DAILY 12/12/18 07/02/21 capsule medium chain triglycerides 7.7 15 ml PO DAILY ml 01/03/19 07/02/21 kcal/mL oral oil ibuprofen 600 mg tablet 600 mg PO Q8H PRN #100 tab-cap 03/06/20 07/02/21 alcohol swabs 2 pad TOPICAL BID #200 ea 09/29/20 07/02/21 blood sugar diagnostic #100 each 09/29/20 07/02/21 lancets #100 ea 09/29/20 07/02/21 blood glucose control, normal #1 ea 09/30/20 07/02/21 Collegen Powder 1 applic PO PRN 02/23/21 07/02/21 burgamont PO 02/23/21 05/04/21 flash glucose scanning reader #1 ea 03/08/21 07/02/21 flash glucose sensor #2 ea 03/08/21 07/02/21 pen needle, diabetic 31 gauge x #100 each 03/19/21 07/02/2110/13 metformin 850 mg tablet 850 mg PO BID #180 tab-cap 05/03/21 07/02/21 insulin glargine 100 unit/mL (3 30 unit SUBCUT HS #4 ml 05/04/21 07/02/21 mL) subcutaneous pen levothyroxine 75 mcg tablet 75 mcg PO DAILY #90 tab-cap 05/05/21 07/02/21 clotrimazole-betamethasone 1 1 applic TOPICAL BID PRN #45 g 06/22/21 07/02/21 %-0.05 % topical cream benzonatate 100 mg capsule 100 mg PO TID PRN #30 cap 06/29/21 07/02/21 Previous Rx's Medication Instructions Recorded ibuprofen 600 mg tablet 600 mg PO Q8H PRN #100 tab-cap 03/06/20 alcohol swabs 2 pad TOPICAL BID #200 ea 09/29/20 blood sugar diagnostic #100 each 09/29/20 lancets #100 ea 09/29/20 blood glucose control, normal #1 ea 09/30/20 flash glucose scanning reader #1 ea 03/08/21 flash glucose sensor #2 ea 03/08/21 pen needle, diabetic 31 gauge x #100 each 03/19/2110/13 metformin 850 mg tablet 850 mg PO BID #180 tab-cap 05/03/21 insulin glargine 100 unit/mL (3 30 unit SUBCUT HS #4 ml 05/04/21 mL) subcutaneous pen levothyroxine 75 mcg tablet 75 mcg PO DAILY #90 tab-cap 05/05/21 clotrimazole-betamethasone 1 1 applic TOPICAL BID PRN #45 g 06/22/21 %-0.05 % topical cream benzonatate 100 mg capsule 100 mg PO TID PRN #30 cap 11/30/21 Allergies Allergy/AdvReac Type Severity Reaction Status Date / Time lisinopril AdvReac Mild tickle in Verified 07/02/21 11:41 throat doxycycline AdvReac YEAST Verified 07/02/21 11:41 INFECTION erythromycin base AdvReac YEAST Verified 07/02/21 11:41 INFECTION methylprednisolone AdvReac GI UPSET Verified 07/02/21 11:41 tramadol AdvReac GI UPSET Verified 07/02/21 11:41 General Stated Complaint: RespSymp HALINA: 3 Review of Systems All systems reviewed & are unremarkable except as noted in HPI and below Cardiovascular Cardiovascular: Denies chest pain Gastrointestinal Gastrointestinal: Denies abdominal pain, Denies nausea and Denies vomiting Musculoskeletal Musculoskeletal: Denies joint swelling Psychiatric Psychiatric: Denies depression [facility] Active Problem List (Updated 07/03/21 @ 14:53 by Cathy Mondragon MD) Discharge planning issues (Acute) DVT prophylaxis (Acute) Steroid-induced hyperglycemia (Acute) Pneumonia due to COVID-19 virus (Acute) Hypoxia (Acute) COVID-19 (Acute) Left ankle pain (Acute) Left foot pain (Acute) Dizziness (Acute) Swelling in chest (Acute) Vitamin D deficiency (Acute) Left hip pain (Chronic) Back pain (Chronic) Medical History (Updated 07/03/21 @ 14:53 by Cathy Mondragon MD) Bilateral carotid bruits Depressive disorder Essential hypertension (07/26/13) Hyperlipidemia pt declines RX/ LDL>160 () Hypothyroidism (11/01/12) Left-sided low back pain with left-sided sciatica 2005-LEFT sciatica; MRI 02/02-large central disc herniation L4-5; 08/07-recurrent and worse right [id number] disk Non-alcoholic fatty liver disease (12/31/13) Obesity Obstructive sleep apnea syndrome inital study at [facility] [place], f/u study 02/24/12 at [facility], severe sleep apnea. C-pap Severe aortic stenosis by prior echocardiogram Uncontrolled type 2 diabetes mellitus Non-complicance/ not taking insulin/HbA1c 12.8 (-) normal eye exam:/no db nephropathy Surgical History History of appendectomy Family History Mother Essential hypertension Personal history of malignant neoplasm LUNG Heart disease Stroke Father Alcohol abuse Personal history of malignant neoplasm Liver Sister No problems noted. Sister No problems noted. Sister Depression Grandfather Stroke Grandfather No problems noted. Grandmother Personal history of malignant neoplasm BREAST Grandmother No problems noted. Social History Smoking/Tobacco Use Status: Never Second Hand Exposure: Yes Smoking risk assessment performed?: Yes Alcohol Intake: current Alcohol Intake frequency: a few times a month Alcohol type: wine Drug use: Never Substance use type: does not use Household members: none Housing: apartment Communication Needs: None Do you need help understanding health information?: Rarely Pets and animals: Yes Pets and animals: other Details: rabbit Sexually active: No Do you think of yourself as: straight/heterosexual Current gender identity: female What is your relationship status?: never How often do you talk on the phone with friends or family?: twice per week How often do you get together with friends or relatives?: once per week How often do you attend rastafarian or restorationist services?: 4 or more times per year Panel score (0-1 are the most socially isolated patients): 2 What type of physical activity do you participate in: walking Duration: 15-30 minutes/day Frequency: 1-2 times per week Ludmila/Congregational: Sikh Seatbelt use: always Drive intox or ride w/intox 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 Do you feel safe at home: Yes Do you feel safe in your relationship?: Yes Exam Const General: no acute distress Orientation: alert HENMT Head: normal to inspection Ears: external ears normal General nose exam: external nose normal Mouth: moist mucous membranes Eyes General: appearance normal, both eyes and all related structures Neck Neck: normal visual inspection Resp Effort & Inspection: cough Cardio Rate: regular rate Skin General skin exam: no rashes or lesions noted Neuro General: patient alert and patient oriented x3 Extrem General: normal to inspection Psych Mental Status: mental status grossly normal Course Vital Signs Vital signs: Vital Signs Temperature 36.7 C 07/02/21 11:39 Pulse 84 07/02/21 11:39 Respiratory Rate 23 07/02/21 11:39 Blood Pressure 153/80 H 07/02/21 11:39 Pulse Oximetry 94 07/02/21 11:39 Temperature 36.7 C 07/02/21 11:39 Temperature Source Temporal Artery Scan 07/02/21 11:39 Pulse 84 07/02/21 11:39 Respiratory Rate 23 07/02/21 11:39 Respiratory Effort 07/02/21 11:42 Respiratory Depth Normal 07/02/21 11:42 Blood Pressure 153/80 H 07/02/21 11:39 Pulse Oximetry 94 07/02/21 11:39 Oxygen Delivery Method Room Air 07/02/21 11:39 Oxygen Flow Rate 0 07/02/21 11:39 Pain Level 5 07/02/21 11:39 Lab/Test Results Lab/Test Results: 07/02/21 11:57 Blood Blood Culture - Pending 07/02/21 11:57 Blood Blood Culture - Pending
[2021-07-02] MEDS: Dexamethasone 4 MG/ML VIAL 6 MG IVP (12:21)
[2021-07-02 12:45] LABS: Abs Immature Grans 0.03 10^3/uL (0.0-0.06); HCT 41.7 % (36.0-46.0); MCH 27.2 pg (27.0-33.0); MCHC 33.6 % (32.0-36.0); MCV 81.1 fL (80-95); MPV 11.3 fL (8.0-11.0); Nucleated RBC 0 %; RBC 5.14 10^6/uL (3.93-5.22); RDW 12.8 % (11.7-14.6); RDW-SD 37.9 fL; WBC 5.77 10^3/uL (4.4-10.8)
[2021-07-02 13:01] LABS: ALT 26 U/L (14-59); AST 39 U/L (15-37); Albumin 2.7 g/dL (3.4-5.0); Alkaline Phosphatase 55 U/L (46-116); Anion Gap 7.8 mmol/L (3-11); BUN 15 mg/dL (7-18); Bilirubin, Total 0.8 mg/dL (0.2-1.0); CO2 27.2 mmol/L (21.0-32.0); CREATININE 0.7 mg/dL (0.55-1.02); Calcium 8.6 mg/dL (8.5-10.1); Chloride 92 mmol/L (98-107); Glucose 280 mg/dL (74-106); Magnesium 1.7 mg/dL (1.8-2.4); Potassium 3.8 mmol/L (3.5-5.1); Sodium 127 mmol/L (136-145); Total Protein 6.8 g/dL (6.4-8.2)
[2021-07-02 13:03] LABS: Source Nasal/Nares
[2021-07-02 13:40] LABS: Absolute Neutrophil Count 4.15 10^3/uL (1.2-6.7); Platelet Count 198 10^3/uL (130-400)
--- NOTE | 2021-07-02 13:40 | NUR.NOTE ---
Pt refused taking Remdesivr infusion, states there is 2 pages of side effects on the [employer] website. Would rather have ivermictin. Nursing Note:
[2021-07-02 13:41] LABS: Absolute Lymphocyte Count 1.33 10^3/uL (1.2-3.4); Atypical Lymphocytes % 2; Diff Comment Manual Differential; RBC Morphology Normal
[2021-07-02 14:06] LABS: COVID-19 PCR POSITIVE (Negative)
[2021-07-02 15:10] LABS: Absolute Monocyte Count 0.23 10^3/uL (0.1-0.8)
[2021-07-02 15:11] LABS: Absolute Eosinophil Count 0.06 10^3/uL (0.0-0.7)
[2021-07-02] MEDS: ACETAMINOPHEN 1,000 MG/100 ML BTL 400 MG IVPB (15:57)
[2021-07-02] MEDS: Normal Saline 1,000 ML 1000 ML IV (15:57)
--- NOTE | 2021-07-02 16:54 | NUR.NOTE ---
referral to cm for pcp follow up for covid
--- NOTE | 2021-07-02 19:32 | W.PM.HP.N ---
Date of service: 07/02/21 Time of Service: 19:32 Assessment and Plan Assessment and plan (1) Pneumonia due to COVID-19 virus: Status: Acute Assessment and plan: Continue Decadron 6 mg orally. Remdesivir has been ordered but declined by the patient. Patient is not currently a candidate for Actemra or baricitinib. Encourage use of I-S and Acapella and proning. vitamin C, vitamin D, zinc. Patient requests Ivermectin even though it has not been adequately evaluated for COVID-19 and is not FDA approved. I told her that I will not prescribe this. Patient reportedly is s/p MAB infusion last week. Hopefully this will provide her some protection. Continue supportive care w/ oxygen. Patient was given 1 liter of NS in the ER. She was not prerenal azotemia and no hypotensive. I have ordered lasix 20 mg bid to be given for couple of doses. Patient should be kept on the dry side to prevent worsing pulmonary congestion. (2) Essential hypertension: Assessment and plan: not currently being treated. formerly was on losartan which was stopped d/t patient's side effects of dizzines. See Dr. Yi Edwards office note from 05/03/2021. (3) Hyperlipidemia: Assessment and plan: not being treated. (4) Severe aortic stenosis by prior echocardiogram: Assessment and plan: per echo 01/30/2019 aortic stenosis is rated as mild to moderate w/ peak velocity of 2.6 m/sec and mean gradient of 15 mm w/ valve area of 1.4 cm^2. However on her most recent echocardiogram 06/17/2021 it is being read as aortic valve sclerosis without stenosis or regurgitation. (5) Uncontrolled type 2 diabetes mellitus: Assessment and plan: patient is on metformin and lantus; Dr. Edwards recommended her going on an SGLT2 inhibitor or a GLP1 agonist but the patient declined this. 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 She underwent workup while in the ER including EKG, labs and CT scan of her chest. CT demonstrated bilateral ground glass infiltrates c/w COVID-19 but no PE, troponins were negative. Patient received albuterol inhaler but declined steroids and monoclonal antibodies at the time. patient was believed to be in atrial fibrillation at a slightly fast rate. Patient was advised for admission but eloped from the ER while the ER provider was in w/ another patient. She presents to the ER today stating she had the MAB this past Monday but now has worsening cough and dypsena and her room air SPO2 has been running in the 80's%. She was placed on oxygen at 2 LPM and her SPO2 came up to the mid 90's. Routine labs and CXR were done. CXR continued to demonstrate multifocal pneumonia. She was started on dexamethasone in the ER but declined to receive Remdesivir. She demanded that she get ivermectin but was told by Dr. Lewis that it is not approved by the FDA and that he would not prescribe it. She also requested Ivermectin from [facility] and I gave her the same response. Review of Systems All systems reviewed & are unremarkable except as noted in HPI and below [facility] Active Problem List (Updated 07/02/21 @ 22:04 by Esvin Mcdonald) Pneumonia due to COVID-19 virus (Acute) Hypoxia (Acute) COVID-19 (Acute) Left ankle pain (Acute) Left foot pain (Acute) Dizziness (Acute) Swelling in chest (Acute) Vitamin D deficiency (Acute) Left hip pain (Chronic) Back pain (Chronic) Medical History (Updated 07/02/21 @ 22:04 by Esvin Mcdonald) Bilateral carotid bruits Depressive disorder Essential hypertension (07/26/13) Hyperlipidemia pt declines RX/ LDL>160 (-2019) Hypothyroidism (11/01/12) Left-sided low back pain with left-sided sciatica 2005-LEFT sciatica; MRI 02/02-large central disc herniation L4-5; 08/07-recurrent and worse right [id number] disk Non-alcoholic fatty liver disease (12/31/13) Obesity Obstructive sleep apnea syndrome inital study at [facility] [place], f/u study 02/24/12 at [facility], severe sleep apnea. C-pap Severe aortic stenosis by prior echocardiogram Uncontrolled type 2 diabetes mellitus Non-complicance/ not taking insulin/HbA1c 12.8 (-20) normal eye exam:/no db nephropathy Surgical History History of appendectomy Family History Mother Essential hypertension Personal history of malignant neoplasm LUNG Heart disease Stroke Father Alcohol abuse Personal history of malignant neoplasm Liver Sister No problems noted. Sister No problems noted. Sister Depression Grandfather Stroke Grandfather No problems noted. Grandmother Personal history of malignant neoplasm BREAST Grandmother No problems noted. Social History Smoking/Tobacco Use Status: Never Second Hand Exposure: Yes Smoking risk assessment performed?: Yes Alcohol Intake: current Alcohol Intake frequency: a few times a month Alcohol type: wine Drug use: Never Substance use type: does not use Household members: none Housing: apartment Communication Needs: None Do you need help understanding health information?: Rarely Pets and animals: Yes Pets and animals: other Details: rabbit Sexually active: No Do you think of yourself as: straight/heterosexual Current gender identity: female What is your relationship status?: never How often do you talk on the phone with friends or family?: twice per week How often do you get together with friends or relatives?: once per week How often do you attend alevism or confucianism services?: 4 or more times per year Panel score (0-1 are the most socially isolated patients): 2 What type of physical activity do you participate in: walking Duration: 15-30 minutes/day Frequency: 1-2 times per week Ludmila/Anglican: Yarsanism Seatbelt use: always Drive intox or ride w/intox ambulance driver paramedic: No Do you feel safe at home: Yes Do you feel safe in your relationship?: Yes Meds Allergies and Home Medications Allergies Allergy/AdvReac Type Severity Reaction Status Date / Time lisinopril AdvReac Mild tickle in Verified 07/02/21 11:41 throat doxycycline AdvReac YEAST Verified 07/02/21 11:41 INFECTION erythromycin base AdvReac YEAST Verified 07/02/21 11:41 INFECTION methylprednisolone AdvReac GI UPSET Verified 07/02/21 11:41 tramadol AdvReac GI UPSET Verified 07/02/21 11:41 Home Medications Medication Instructions Recorded Confirmed Type ascorbic acid (vitamin C) [Vitamin 500 mg PO daily prn 11/01/12 07/02/21 History C With Ronna Hips] vitamin B complex 1 ea PO daily prn 11/01/12 07/02/21 History C-Pap 07/04/14 05/04/21 History triamcinolone acetonide 1 addison TOPICAL BID PRN #15 gm 09/16/14 07/02/21 History chlorhexidine gluconate [Hibiclens] 1 addison TOPICAL DAILY PRN #236 ml 08/01/17 07/02/21 History cholecalciferol (vitamin D3) 25 2,000 unit PO DAILY tab 06/27/18 07/02/21 History mcg (1,000 unit) tablet omega-3 fatty acids 1,000 mg 1,000 mg PO DAILY 12/12/18 07/02/21 History capsule medium chain triglycerides 7.7 15 ml PO DAILY ml 01/03/19 07/02/21 History kcal/mL oral oil ibuprofen 600 mg tablet 600 mg PO Q8H PRN #100 tab-cap 03/06/20 07/02/21 Rx alcohol swabs 2 pad TOPICAL BID #200 ea 09/29/20 07/02/21 Rx blood sugar diagnostic #100 each 09/29/20 07/02/21 Rx lancets #100 ea 09/29/20 07/02/21 Rx blood glucose control, normal #1 ea 09/30/20 07/02/21 Rx Collegen Powder 1 applic PO PRN 02/23/21 07/02/21 History burgamont PO 02/23/21 05/04/21 History flash glucose scanning reader #1 ea 03/08/21 07/02/21 Rx flash glucose sensor #2 ea 03/08/21 07/02/21 Rx pen needle, diabetic 31 gauge x #100 each 03/19/21 07/02/21 Rx 3/16 metformin 850 mg tablet 850 mg PO BID #180 tab-cap 05/03/21 07/02/21 Rx insulin glargine 100 unit/mL (3 30 unit SUBCUT HS #4 ml 05/04/21 07/02/21 Rx mL) subcutaneous pen levothyroxine 75 mcg tablet 75 mcg PO DAILY #90 tab-cap 05/05/21 07/02/21 Rx clotrimazole-betamethasone 1 1 applic TOPICAL BID PRN #45 g 06/22/21 07/02/21 Rx %-0.05 % topical cream benzonatate 100 mg capsule 100 mg PO TID PRN #30 cap 06/29/21 07/02/21 Rx Exam Const General: ill appearing Nutritional Appearance: overweight Orientation: alert, awake and oriented x3 HENMT Head: normal to inspection and normocephalic Ears: hearing grossly normal bilaterally General nose exam: external nose normal and nares normal Face and sinus: normal facial exam Neck Neck: normal visual inspection, full ROM, no lymphadenopathy, trachea midline and supple Thyroid: thyroid normal Carotids: normal carotid upstroke and bruit bilaterally Lymphatic: no lymphadenopathy noted Resp Effort & Inspection: tachypneic Auscultation: rales bilaterally throughout Cardio Jugular venous pressure: no JVD Palpation: normal PMI Rate: tachycardic Rhythm: abnormal rhythm with ectopic beats Heart Sounds: murmur systolic mid, crescendo, harsh, IV/, with radiation to the carotids and at the base Pulses: normal peripheral pulses GI Inspection: normal to inspection Palpation: soft Percussion: normal to percussion Auscultation: normal bowel sounds Back/Spine/Pelvis Back: no CVA tenderness Cervical Spine: normal cervical lordosis and cervical ROM normal Thoracic/Lumbar Spine: thoracic and lumbar spine normal to inspection Skin General skin exam: no rashes or lesions noted, elasticity normal and turgor normal Neuro General: patient alert, patient awake, patient oriented x3, tone normal, moves all extremities and no focal motor deficits Cognition: normal cognition Speech: speech normal Motor: muscle tone normal throughout Sensory Exam: no sensory deficits noted Extrem General: normal to inspection, full ROM and capillary refill normal Psych Appearance: grossly normal and well kempt Mental Status: mental status grossly normal Speech and Movement: speech and movement normal Mood: congruent mood Affect: normal affect Attitude: cooperative Thought Process: normal Thought Content: normal Insight: limited Judgment: limited Results Imaging Chest x-ray: report reviewed and image reviewed EKG: image reviewed Labs Result diagrams: 07/02/21 12:16 07/02/21 12:16 Labs: Laboratory Results - last 24 hr 12/03/21 12/03/21 12/03/21 12:16 12:16 12:49 WBC 5.77 RBC 5.14 Hgb 14.0 Hct 41.7 MCV 81.1 MCH 27.2 MCHC 33.6 RDW 12.8 Plt Count 198 MPV 11.3 H Immature Gran % See Differential Neutrophils % 72.0 Lymphocytes % 21.0 Atypical Lymphs % 2 Monocytes % 4.0 Eosinophils % 1.0 Basophils % 0.0 Nucleated RBC % 0 Absolute Neutrophils 4.15 Absolute Lymphocytes 1.33 Absolute Monocytes 0.23 Absolute Eosinophils 0.06 Absolute Basophils 0.00 RBC Morphology Normal Sodium 127 L Potassium 3.8 Chloride 92 L Carbon Dioxide 27.2 Anion Gap 7.8 BUN 15 Creatinine 0.7 Estimated GFR/1.73 m2 >= 60.00 Glucose 280 H Calcium 8.6 Magnesium 1.7 L Total Bilirubin 0.8 AST 39 H ALT 26 Alkaline Phosphatase 55 Total Protein 6.8 Albumin 2.7 L COVID-19 Source Nasal/Nares SARS-CoV-2 (PCR) POSITIVE A* Last Vital Signs Temp 35.9 C L 07/02/21 18:46 Pulse 79 07/02/21 18:46 Resp 20 07/02/21 18:46 BP 143/79 H 07/02/21 18:43 Pulse Ox 95 07/02/21 18:46
[2021-07-02 20:11] LABS: ESR 60 mm/hr (0-30)
[2021-07-02 20:27] LABS: Creatine Kinase 232 U/L (26-192); LDH 468 U/L (81-234)
[2021-07-02 20:35] LABS: NT-proBNP 102 pg/mL (<300)
[2021-07-02 20:38] LABS: Troponin I < 0.05 ng/mL (<0.06)
[2021-07-02 20:48] LABS: D-Dimer 1914 ng/mlFEU (<500); Procalcitonin < 0.1 ng/mL
[2021-07-02 20:58] LABS: Ferritin 480 ng/mL (8-252)
[2021-07-02] MEDS: Atorvastatin 40 MG TAB PO (21:00)
[2021-07-02 21:14] LABS: C-Reactive Protein 6.28 mg/dL (0.0-0.3)
[2021-07-02] MEDS: Famotidine 20 MG TAB PO (22:18)
[2021-07-02] MEDS: Furosemide 20 MG TAB PO (22:41)
[2021-07-02] MEDS: Enoxaparin 40 MG/0.4 ML SYR SC (22:42)
[2021-07-02] MEDS: Potassium Chloride 20 MEQ TABCR PO (22:42)
[2021-07-02 23:01] LABS: Glucose 410 mg/dL (74-106)
[2021-07-02] MEDS: Insulin Glargine 300 UNITS/3 ML PEN 30 UNITS SC (23:13)
[2021-07-02] MEDS: Insulin Aspart 300 UNITS/3 ML PEN SC (23:17)
[2021-07-03] VITALS (9 sets, daily range): BP systolic 126–148; BP diastolic 74–88; PULSE 64–81; RESP 18–20; TEMP 35–36.5; O2SAT 92–95
[2021-07-03] MEDS: Levothyroxine 75 MCG TAB PO (05:29)
[2021-07-03 07:20] LABS: HCT 38.4 % (36.0-46.0); HGB 12.7 g/dL (11.2-15.7); MCH 26.8 pg (27.0-33.0); MCHC 33.1 % (32.0-36.0); MCV 81.2 fL (80-95); MPV 10.9 fL (8.0-11.0); Nucleated RBC 0 %; RBC 4.73 10^6/uL (3.93-5.22); RDW 12.6 % (11.7-14.6); RDW-SD 37.5 fL; WBC 3.63 10^3/uL (4.4-10.8)
[2021-07-03 07:46] LABS: ALT 27 U/L (14-59); AST 25 U/L (15-37); Albumin 2.5 g/dL (3.4-5.0); Alkaline Phosphatase 54 U/L (46-116); Anion Gap 11.4 mmol/L (3-11); BUN 16 mg/dL (7-18); Bilirubin, Total 0.6 mg/dL (0.2-1.0); CO2 22.6 mmol/L (21.0-32.0); CREATININE 0.6 mg/dL (0.55-1.02); Calcium 8.5 mg/dL (8.5-10.1); Chloride 97 mmol/L (98-107); Glucose 347 mg/dL (74-106); Magnesium 1.8 mg/dL (1.8-2.4); Potassium 4.2 mmol/L (3.5-5.1); Sodium 131 mmol/L (136-145); Total Protein 6.2 g/dL (6.4-8.2)
[2021-07-03 07:49] LABS: Absolute Lymphocyte Count 0.83 10^3/uL (1.2-3.4); Absolute Monocyte Count 0.04 10^3/uL (0.1-0.8); Absolute Neutrophil Count 2.76 10^3/uL (1.2-6.7); Atypical Lymphocytes % 3; Bands % 3; Diff Comment Manual Differential; RBC Morphology Normal
[2021-07-03 07:50] LABS: Platelet Count 199 10^3/uL (130-400)
[2021-07-03] MEDS: Insulin Aspart 300 UNITS/3 ML PEN SC ×7 (08:55→22:34)
[2021-07-03] MEDS: Enoxaparin 40 MG/0.4 ML SYR SC (08:56)
[2021-07-03] MEDS: Ascorbic Acid 500 MG TAB 1000 MG PO ×2 (08:57→20:06)
[2021-07-03] MEDS: Cholecalciferol (Vitamin D3) 1,000 UNIT TAB 2000 UNITS PO (08:57)
[2021-07-03] MEDS: Aspirin E.C. 81 MG TABEC PO (08:57)
[2021-07-03] MEDS: Zinc Sulfate 220 MG TAB PO (08:57)
[2021-07-03] MEDS: Potassium Chloride 20 MEQ TABCR PO (08:57)
[2021-07-03] MEDS: Vitamins B Comp w/C TAB 1 TAB PO (08:57)
[2021-07-03] MEDS: Famotidine 20 MG TAB PO ×2 (08:58→20:06)
[2021-07-03] MEDS: Dexamethasone 4 MG TAB 6 MG PO (08:58)
[2021-07-03] MEDS: Furosemide 20 MG TAB PO ×2 (08:58→17:03)
--- NOTE | 2021-07-03 09:27 | INITIAL_ITS ---
- If Service Date Differs Date of service: 07/03/21 Time of Service: 09:27 Care Management Initial Assess REASON FOR HOSPITALIZATION:: Covid-19 Pneumonia PAST MEDICAL HISTORY/PAST SURGICAL HISTORY:: Active Problem List (Updated 07/02/21 @ 22:04 by Esvin Mcdonald). Pneumonia due to COVID-19 virus (Acute). Hypoxia (Acute). COVID-19 (Acute). Left ankle pain (Acute). Left foot pain (Acute). Dizziness (Acute). Swelling in chest (Acute). Vitamin D deficiency (Acute). Left hip pain (Chronic). Back pain (Chronic). Medical History (Updated 07/02/21 @ 22:04 by Esvin Mcdonald). Bilateral carotid bruits. Depressive disorder. Essential hypertension (07/26/13). Hyperlipidemia. pt declines RX/ LDL>160 (). Hypothyroidism (11/01/12). Left-sided low back pain with left-sided sciatica. 2005-LEFT sciatica; MRI 02/02-large central disc herniation L4-5; 08/07-recurrent and worse right cyidvjea-M3-7 disk. Non- alcoholic fatty liver disease (12/31/13). Obesity. Obstructive sleep apnea syndrome. inital study at [facility] [place], f/u study 02/24/12 at [facility], severe sleep apnea. C-pap. Severe aortic stenosis by prior echocardiogram. Uncontrolled type 2 diabetes mellitus. Non-complicance/ not taking insulin/HbA1c 12.8 (-20). normal eye exam:/no db nephropathy. Surgical History . History of appendectomy PREVIOUS FUNCTIONAL STATUS/SOCIAL/FAMILY SUPPORTS:: Emmy lives alone in an apartment in [place], [place]. with her rabbit Snickers. 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 Luz has one sister but most of her community support comes from friends in the area. CURRENT FUNCTIONAL STATUS:: CARRIE was unable to meet with Luz in person due to her Covid isolation, but was able to speak to her on the phone. Luz stated that she is feeling much better but that her breathing is about the same. She was pleasant and agreeable to conversation but unable to speak in long sentences without coughing. CARRIE offered word searches and coloring books to Luz should she get bored. She is currently watching TV and enjoying a movie.She is afebrile and her vital signs have been stable with oxygen saturation levels in the mid 90's on 2L/O2 via n/c. ADVANCE DIRECTIVES:: none on file Has patient been provided with info about the portal/API?: Yes Did the patient sign up for the portal?: No CODE STATUS:: Full Code INSURANCE COVERAGE / FINANCIAL ISSUES:: [employer] CURRENT HOME/COMMUNITY SERVICES/EQUIPMENT:: none PRIMARY CARE PHYSICIAN:: Jose Crawford POTENTIAL DISCHARGE NEEDS:: Follow up with PCP and plan of care PATIENT/FAMILY EDUCATION NEEDS:: Review of discharge instructions including medications, limitations, activity, follow up plan, Ask Me Three TRANSPORTATION:: via private vehicle with friends/family PLAN:: Emmy will daniela be discharged home with no new services. She will follow up with her PCP and plan of care as prescribed and transport with family. CM will continue to support Emmy and assess for discharge planning concerns.
[2021-07-03] MEDS: Benzonatate 100 MG CAP PO (10:12)
--- NOTE | 2021-07-03 14:43 | W.PM.PROGNOT ---
Date of Service Date of service: 07/03/21 Time of Service: 14:43 Assessment and Plan Assessment and plan (1) Pneumonia due to COVID-19 virus: Status: Acute Assessment and plan: With hypoxia. Currently on 2L of O2 by NM. Continue dexamethasone. Patient is refusing remdesivir and is not a candidate for tocilizumab or baricitinib. Encourage incentive spirometry, vibrapep, proning. Continue supplementation of vitamin C, D. Famotidine, melatonin. Antitussives. (2) Essential hypertension: Assessment and plan: BPs labile. Would not start any antihypertensives at this time, but this will need to be followed up as outpatient. (3) Hyperlipidemia: Assessment and plan: Continue atorvastatin. (4) Severe aortic stenosis by prior echocardiogram: Assessment and plan: H/o on prior echo which is not being read on the latest echo. Maintain euvolemia as I do suspect based on clinical findings that the patient in fact has . Echo should be repeated as outpatient. (5) Uncontrolled type 2 diabetes mellitus: Assessment and plan: Continue basal bolus insulin with addition of NPH to cover for steroid induced hyperglycemia. (6) Steroid-induced hyperglycemia: Status: Acute Assessment and plan: As above (7) DVT prophylaxis: Status: Acute Assessment and plan: SC enoxaparin (8) Discharge planning issues: Status: Acute Assessment and plan: Full code Continues to require hospitalization Subjective Subjective Interval history since last seen: I feel 10-15% better than I did yesterday. Continues to have SOB and cough. Did not wear O2 to the bathroom where she took a sponge bath. She was off of O2 for about an hour, she thinks. Too many wires. Endorses some dizziness, even at rest - we discussed how that could have something to do with her low oxygen. Denies chest pain, nausea. Refuses remdesivir. Requests ivermectin. We discussed how our hospital is not participating in any clinical trials on ivermectin which is the only way that I would be able to prescribe it for her. She verbalized understanding. Exam Narrative Exam Narrative: General: Dyspneic obese female who is not wearing oxygen and is mildly cyanotic when I came to see her. A&Ox3 HEENT: EOMI, MMM Heart: RRR, + SADAF Lungs: coughing, coarse breath sounds B Abdomen: nondistended Extremities: trace edema at B feet Objective Last Vital Signs Temp 35.6 C L 07/03/21 09:00 Pulse 69 07/03/21 09:00 Resp 18 07/03/21 09:00 BP 148/80 H 07/03/21 09:00 Pulse Ox 95 07/03/21 09:00 Laboratory Results - last 24 hr 07/02/21 07/02/21 07/02/21 12:16 19:56 19:56 WBC RBC Hgb Hct MCV MCH MCHC RDW Plt Count MPV Immature Gran % Neutrophils % Band Neutrophils % Lymphocytes % Atypical Lymphs % Monocytes % 4.0 Eosinophils % 1.0 Basophils % Nucleated RBC % Absolute Neutrophils Absolute Lymphocytes Absolute Monocytes 0.23 Absolute Eosinophils 0.06 Absolute Basophils RBC Morphology ESR D-Dimer Sodium Potassium Chloride Carbon Dioxide Anion Gap BUN Creatinine Estimated GFR/1.73 m2 Glucose Calcium Magnesium Ferritin Total Bilirubin AST ALT Alkaline Phosphatase Lactate Dehydrogenase Creatine Kinase Troponin I < 0.05 C-Reactive Protein NT-Pro-B Natriuret Pep 102 Total Protein Albumin Procalcitonin Patient ABO/Rh A Positive Antibody Screen NEGATIVE 07/02/21 07/02/21 07/02/21 19:56 19:56 19:56 WBC RBC Hgb Hct MCV MCH MCHC RDW Plt Count MPV Immature Gran % Neutrophils % Band Neutrophils % Lymphocytes % Atypical Lymphs % Monocytes % Eosinophils % Basophils % Nucleated RBC % Absolute Neutrophils Absolute Lymphocytes Absolute Monocytes Absolute Eosinophils Absolute Basophils RBC Morphology ESR D-Dimer 1914 H Sodium Potassium Chloride Carbon Dioxide Anion Gap BUN Creatinine Estimated GFR/1.73 m2 Glucose Calcium Magnesium Ferritin 480 H Total Bilirubin AST ALT Alkaline Phosphatase Lactate Dehydrogenase 468 H Creatine Kinase 232 H Troponin I C-Reactive Protein 6.28 H NT-Pro-B Natriuret Pep Total Protein Albumin Procalcitonin Patient ABO/Rh Antibody Screen 07/02/21 07/02/21 07/02/21 19:56 19:56 22:50 WBC RBC Hgb Hct MCV MCH MCHC RDW Plt Count MPV Immature Gran % Neutrophils % Band Neutrophils % Lymphocytes % Atypical Lymphs % Monocytes % Eosinophils % Basophils % Nucleated RBC % Absolute Neutrophils Absolute Lymphocytes Absolute Monocytes Absolute Eosinophils Absolute Basophils RBC Morphology ESR 60 H D-Dimer Sodium Potassium Chloride Carbon Dioxide Anion Gap BUN Creatinine Estimated GFR/1.73 m2 Glucose 410 H D Calcium Magnesium Ferritin Total Bilirubin AST ALT Alkaline Phosphatase Lactate Dehydrogenase Creatine Kinase Troponin I C-Reactive Protein NT-Pro-B Natriuret Pep Total Protein Albumin Procalcitonin < 0.1 Patient ABO/Rh Antibody Screen 07/03/21 07/03/21 06:50 06:50 WBC 3.63 L D RBC 4.73 Hgb 12.7 Hct 38.4 MCV 81.2 MCH 26.8 L MCHC 33.1 RDW 12.6 Plt Count 199 MPV 10.9 Immature Gran % 0.0 Neutrophils % 73.0 Band Neutrophils % 3 Lymphocytes % 20.0 Atypical Lymphs % 3 Monocytes % 1.0 Eosinophils % 0.0 Basophils % 0.0 Nucleated RBC % 0 Absolute Neutrophils 2.76 Absolute Lymphocytes 0.83 L Absolute Monocytes 0.04 L Absolute Eosinophils 0.00 Absolute Basophils 0.00 RBC Morphology Normal ESR D-Dimer Sodium 131 L Potassium 4.2 Chloride 97 L Carbon Dioxide 22.6 Anion Gap 11.4 H BUN 16 Creatinine 0.6 Estimated GFR/1.73 m2 >= 60.00 Glucose 347 H Calcium 8.5 Magnesium 1.8 Ferritin Total Bilirubin 0.6 AST 25 ALT 27 Alkaline Phosphatase 54 Lactate Dehydrogenase Creatine Kinase Troponin I C-Reactive Protein NT-Pro-B Natriuret Pep Total Protein 6.2 L Albumin 2.5 L Procalcitonin Patient ABO/Rh Antibody Screen
[2021-07-03] MEDS: Insulin NPH-Human 300 UNITS/3 ML PEN 20 UNIT SC (15:03)
--- NOTE | 2021-07-03 18:09 | RESPIRATORY ---
Pt was offered a cpap unit to use at night and for naps but says she is unable to use a face mask and can only use a nasal mask. Our units do not have a nasal mask but pt is aware that she can change her mind at any time and cpap is available to her. She also says that her home unit is on the recall list so can not be brought in.
[2021-07-03] MEDS: Atorvastatin 40 MG TAB PO (20:06)
[2021-07-03] MEDS: guaiFENesin 600 MG TABCR PO (20:07)
[2021-07-03] MEDS: Benzonatate 200 MG CAP PO (20:07)
[2021-07-03] MEDS: Melatonin 3 MG TAB PO (22:28)
[2021-07-03] MEDS: Insulin Glargine 300 UNITS/3 ML PEN 40 UNITS SC (22:31)
[2021-07-04] VITALS (10 sets, daily range): BP systolic 122–146; BP diastolic 69–91; PULSE 60–77; RESP 18–20; TEMP 35.7–36.5; O2SAT 92–94
[2021-07-04] MEDS: guaiFENesin/CODEINE PHOSPHATE 10 ML CUP 5 ML PO ×2 (00:35→21:27)
[2021-07-04] MEDS: Levothyroxine 75 MCG TAB PO (05:11)
[2021-07-04 07:45] LABS: HCT 38.4 % (36.0-46.0); HGB 12.9 g/dL (11.2-15.7); MCH 27.5 pg (27.0-33.0); MCHC 33.6 % (32.0-36.0); MCV 81.9 fL (80-95); MPV 10.6 fL (8.0-11.0); Nucleated RBC 0 %; RBC 4.69 10^6/uL (3.93-5.22); RDW 12.7 % (11.7-14.6); WBC 9.47 10^3/uL (4.4-10.8)
[2021-07-04 08:03] LABS: ALT 23 U/L (14-59); AST 22 U/L (15-37); Albumin 2.6 g/dL (3.4-5.0); Alkaline Phosphatase 54 U/L (46-116); BUN 18 mg/dL (7-18); Bilirubin, Direct 0.2 mg/dL (0.0-0.2); Bilirubin, Total 0.6 mg/dL (0.2-1.0); C-Reactive Protein 1.37 mg/dL (0.0-0.3); CREATININE 0.6 mg/dL (0.55-1.02); Chloride 99 mmol/L (98-107); Glucose 283 mg/dL (74-106); Magnesium 1.8 mg/dL (1.8-2.4); Potassium 4.4 mmol/L (3.5-5.1); Sodium 133 mmol/L (136-145); Total Protein 6.3 g/dL (6.4-8.2)
[2021-07-04 08:09] LABS: Absolute Lymphocyte Count 0.85 10^3/uL (1.2-3.4); Absolute Monocyte Count 0.76 10^3/uL (0.1-0.8); Absolute Neutrophil Count 7.86 10^3/uL (1.2-6.7); Atypical Lymphocytes % 3; Bands % 1; Diff Comment Manual Differential; RBC Morphology Normal
[2021-07-04 08:10] LABS: Platelet Count 268 10^3/uL (130-400)
[2021-07-04 08:20] LABS: D-Dimer 1097 ng/mlFEU (<500)
[2021-07-04 08:30] LABS: Hemoglobin A1C 10.6 % (<5.7)
[2021-07-04 08:32] LABS: Ferritin 338 ng/mL (8-252)
[2021-07-04] MEDS: Ascorbic Acid 500 MG TAB 1000 MG PO ×2 (08:50→21:27)
[2021-07-04] MEDS: Cholecalciferol (Vitamin D3) 1,000 UNIT TAB 2000 UNITS PO (08:51)
[2021-07-04] MEDS: Enoxaparin 40 MG/0.4 ML SYR SC (08:51)
[2021-07-04] MEDS: Aspirin E.C. 81 MG TABEC PO (08:51)
[2021-07-04] MEDS: Famotidine 20 MG TAB PO ×2 (08:51→21:27)
[2021-07-04] MEDS: Benzonatate 200 MG CAP PO ×3 (08:51→21:27)
[2021-07-04] MEDS: Dexamethasone 4 MG TAB 6 MG PO (08:51)
[2021-07-04] MEDS: Insulin Aspart 300 UNITS/3 ML PEN SC ×7 (08:52→21:29)
[2021-07-04] MEDS: guaiFENesin 600 MG TABCR PO ×2 (08:52→21:27)
[2021-07-04] MEDS: Insulin NPH-Human 300 UNITS/3 ML PEN 20 UNIT SC (08:53)
[2021-07-04] MEDS: Zinc Sulfate 220 MG TAB PO (08:54)
[2021-07-04] MEDS: Potassium Chloride 20 MEQ TABCR PO (08:54)
[2021-07-04] MEDS: Vitamins B Comp w/C TAB 1 TAB PO (08:54)
--- NOTE | 2021-07-04 16:00 | W.PM.PROGNOT ---
Date of Service Date of service: 07/04/21 Time of Service: 16:00 Assessment and Plan Assessment and plan (1) Pneumonia due to COVID-19 virus: Status: Acute Assessment and plan: Hypoxia at rest resolved. Will check ambulatory pulse ox with plans for d/c home tomorrow. Continue dexamethasone. Patient is refusing remdesivir and is not a candidate for tocilizumab or baricitinib. Encourage incentive spirometry, vibrapep, proning. Continue supplementation of vitamin C, D. Famotidine, melatonin. Antitussives. (2) Essential hypertension: Assessment and plan: BPs labile. Would not start any antihypertensives at this time, but this will need to be followed up as outpatient. (3) Hyperlipidemia: Assessment and plan: Continue atorvastatin. (4) Severe aortic stenosis by prior echocardiogram: Assessment and plan: H/o on prior echo which is not being read on the latest echo. Maintain euvolemia as I do suspect based on clinical findings that the patient in fact has . Echo should be repeated as outpatient. (5) Uncontrolled type 2 diabetes mellitus: Assessment and plan: Continue basal bolus insulin with addition of NPH to cover for steroid induced hyperglycemia. (6) Steroid-induced hyperglycemia: Status: Acute Assessment and plan: As above (7) DVT prophylaxis: Status: Acute Assessment and plan: SC enoxaparin (8) Discharge planning issues: Status: Acute Assessment and plan: Full code Anticipate discharge home tomorrow. Subjective Subjective Interval history since last seen: Feels less short of breath and cough is better. On RA today. When ambulating on RA, she does desat to 91%. Does not feel comfortable going home today but thinks she will be ready to go home tomorrow. Denies dizziness, chest pain, nausea. Exam Narrative Exam Narrative: General: obese female who is significantly less dyspneic today, on RA, no evidence of cyanosis. A&Ox3 HEENT: EOMI, MMM Heart: RRR, + SADAF Lungs: coughing, coarse breath sounds B, improved from yesterday Abdomen: nondistended Extremities: no edema at B feet Objective Last Vital Signs Temp 36.1 C L 07/04/21 12:04 Pulse 77 07/04/21 12:04 Resp 19 07/04/21 12:04 BP 122/75 07/04/21 12:04 Pulse Ox 93 07/04/21 12:04 Laboratory Results - last 24 hr 07/04/21 07/04/21 07/04/21 07:05 07:05 07:05 WBC 9.47 D RBC 4.69 Hgb 12.9 Hct 38.4 MCV 81.9 MCH 27.5 MCHC 33.6 RDW 12.7 Plt Count 268 MPV 10.6 Immature Gran % 0.0 Neutrophils % 82.0 Band Neutrophils % 1 Lymphocytes % 6.0 Atypical Lymphs % 3 Monocytes % 8.0 Eosinophils % 0.0 Basophils % 0.0 Nucleated RBC % 0 Absolute Neutrophils 7.86 H Absolute Lymphocytes 0.85 L Absolute Monocytes 0.76 Absolute Eosinophils 0.00 Absolute Basophils 0.00 RBC Morphology Normal PT 10.0 INR 1.0 D-Dimer 1097 H Sodium 133 L Potassium 4.4 Chloride 99 Carbon Dioxide 27.0 Anion Gap 7.0 BUN 18 Creatinine 0.6 Estimated GFR/1.73 m2 >= 60.00 Glucose 283 H Hemoglobin A1c Calcium 9.0 Magnesium 1.8 Ferritin 338 H Total Bilirubin 0.6 Conjugated Bilirubin 0.2 AST 22 ALT 23 Alkaline Phosphatase 54 C-Reactive Protein 1.37 H Total Protein 6.3 L Albumin 2.6 L 07/04/21 07:05 WBC RBC Hgb Hct MCV MCH MCHC RDW Plt Count MPV Immature Gran % Neutrophils % Band Neutrophils % Lymphocytes % Atypical Lymphs % Monocytes % Eosinophils % Basophils % Nucleated RBC % Absolute Neutrophils Absolute Lymphocytes Absolute Monocytes Absolute Eosinophils Absolute Basophils RBC Morphology PT INR D-Dimer Sodium Potassium Chloride Carbon Dioxide Anion Gap BUN Creatinine Estimated GFR/1.73 m2 Glucose Hemoglobin A1c 10.6 H Calcium Magnesium Ferritin Total Bilirubin Conjugated Bilirubin AST ALT Alkaline Phosphatase C-Reactive Protein Total Protein Albumin
[2021-07-04] MEDS: Normal Saline Flush 10 ML SYR IVP (21:27)
[2021-07-04] MEDS: Atorvastatin 40 MG TAB PO (21:27)
[2021-07-04] MEDS: Melatonin 3 MG TAB PO (21:27)
[2021-07-04] MEDS: Insulin Glargine 300 UNITS/3 ML PEN 45 UNITS SC (21:30)
[2021-07-05 00:22] VITALS: BP 141/79; PULSE 68; RESP 18; TEMP 35.6; O2SAT 91
[2021-07-05 04:52] VITALS: BP 132/78; PULSE 66; RESP 18; TEMP 36.5; O2SAT 91
[2021-07-05] MEDS: Levothyroxine 75 MCG TAB PO (06:12)
[2021-07-05 07:13] LABS: HCT 38.1 % (36.0-46.0); HGB 12.7 g/dL (11.2-15.7); MCH 27.4 pg (27.0-33.0); MCHC 33.3 % (32.0-36.0); MCV 82.1 fL (80-95); MPV 10.8 fL (8.0-11.0); Nucleated RBC 0 %; Platelet Count 290 10^3/uL (130-400); RBC 4.64 10^6/uL (3.93-5.22); RDW 12.8 % (11.7-14.6); RDW-SD 38.5 fL
[2021-07-05 07:27] LABS: ALT 23 U/L (14-59); AST 17 U/L (15-37); Albumin 2.6 g/dL (3.4-5.0); Alkaline Phosphatase 54 U/L (46-116); Anion Gap 7.3 mmol/L (3-11); BUN 17 mg/dL (7-18); Bilirubin, Direct 0.2 mg/dL (0.0-0.2); Bilirubin, Total 0.5 mg/dL (0.2-1.0); C-Reactive Protein 0.58 mg/dL (0.0-0.3); CO2 26.7 mmol/L (21.0-32.0); CREATININE 0.6 mg/dL (0.55-1.02); Calcium 8.9 mg/dL (8.5-10.1); Chloride 102 mmol/L (98-107); Glucose 161 mg/dL (74-106); Magnesium 1.8 mg/dL (1.8-2.4); Potassium 4.2 mmol/L (3.5-5.1); Sodium 136 mmol/L (136-145); Total Protein 6.2 g/dL (6.4-8.2)
[2021-07-05 07:29] VITALS: PULSE 57
[2021-07-05 07:33] LABS: Absolute Lymphocyte Count 1.54 10^3/uL (1.2-3.4); Absolute Monocyte Count 0.67 10^3/uL (0.1-0.8); Absolute Neutrophil Count 7.39 10^3/uL (1.2-6.7); Atypical Lymphocytes % 2
[2021-07-05 07:34] LABS: Diff Comment Manual Differential; RBC Morphology Normal
[2021-07-05 07:51] LABS: Prothrombin Time 10.4 sec (9.3-11.0)
[2021-07-05 07:52] LABS: Ferritin 310 ng/mL (8-252)
[2021-07-05 07:53] LABS: D-Dimer 1507 ng/mlFEU (<500)
[2021-07-05 08:02] VITALS: BP 133/72; PULSE 68; RESP 18; TEMP 36.2; O2SAT 92
[2021-07-05] MEDS: Ascorbic Acid 500 MG TAB 1000 MG PO (08:09)
[2021-07-05] MEDS: Vitamins B Comp w/C TAB 1 TAB PO (08:09)
[2021-07-05] MEDS: guaiFENesin 600 MG TABCR PO (08:10)
[2021-07-05] MEDS: Benzonatate 200 MG CAP PO (08:10)
[2021-07-05] MEDS: Zinc Sulfate 220 MG TAB PO (08:10)
[2021-07-05] MEDS: Dexamethasone 4 MG TAB 6 MG PO (08:10)
[2021-07-05] MEDS: Famotidine 20 MG TAB PO (08:11)
[2021-07-05] MEDS: Aspirin E.C. 81 MG TABEC PO (08:11)
[2021-07-05] MEDS: Cholecalciferol (Vitamin D3) 1,000 UNIT TAB 2000 UNITS PO (08:11)
[2021-07-05] MEDS: Potassium Chloride 20 MEQ TABCR PO (08:11)
[2021-07-05] MEDS: Enoxaparin 40 MG/0.4 ML SYR SC (08:12)
[2021-07-05] MEDS: Insulin NPH-Human 300 UNITS/3 ML PEN 20 UNIT SC (08:13)
[2021-07-05] MEDS: Insulin Aspart 300 UNITS/3 ML PEN SC ×3 (08:13→12:04)
[2021-07-05 08:17] LABS: Procalcitonin < 0.1 ng/mL
[2021-07-05 09:29] VITALS: PULSE 74; PULSE 76; PULSE 94; RESP 15; RESP 16; RESP 18; O2SAT 92; O2SAT 95; O2SAT 97
--- NOTE | 2021-07-05 10:30 | DSE_ITS ---
Date of service: 07/05/21 Time of Service: 10:31 DS: Diagnosis Discharge Diagnosis (1) Pneumonia due to COVID-19 virus: Status: Acute (2) Hypoxia: Status: Resolved (3) Essential hypertension: (4) Hyperlipidemia: (5) Steroid-induced hyperglycemia: Status: Acute (6) Uncontrolled type 2 diabetes mellitus: (7) Severe aortic stenosis by prior echocardiogram: (8) Obesity (BMI 30-39.9): Status: Chronic Discharge Plan Disposition Patient Disposition: HOME Condition: Improving Discharge Details Reason For Visit: COVID pneumonia Admit Date/Time: 07/02/21 13:33 Admit Provider: Esvin Mcdonald Attending Provider: Esvin Mcdonald Primary Care Provider: Jose Crawford Hospital Course Hospital Course: Ms Patel is a 65 year old female with PMHx of uncontrolled IDDM2 (A1C of 10.6), hypertension, TREE on CPAP, obesity with BMI of 35.6, who was a patient on [facility] hospitalist service from 07/02/21 until 07/05/21 for COVID-19 pneumonia with hypoxia. The patient was not vaccinated against COVID-19. Her initial oxygen requirement in the ED was 2L with O2 sats of 87% on RA. The patient was initiated on dexamethasone, but refused remdesivir. She received supplementation of Vitamin C, D, zinc. She was interested in trying ivermectin which our hospital was unable to offer her as it is not available under emergency use authorization and we are not participating in an ivermectin clinical trial. The patient's oxygen requirement at rest has resolved by 07/04/21 and and with activity by 07/05/21. She is being discharged home today with prescriptions for antitussives. She needs to follow up with her PCP for management of her diabetes. Care for patient as well as completion of her discharge summary took 40 minutes on the day of her discharge. Home Meds and New Rx's Prescriptions: New albuterol sulfate [Ventolin HFA] 90 mcg/actuation Hfa Aerosol Inhaler 2 puff inhalation Q6H PRN PRN (Reason: shortness of breath or wheezing) Qty: 8.5 RF: 0 guaifenesin [Mucinex] 600 mg Tablet Extended Release 12hr 600 mg PO BID PRN PRNQty: 30 RF: 0 codeine-guaifenesin 10-100 mg/5 mL Liquid 5 ml PO Q6H PRN MDD 20 ml (40 mg codeine) PRN (Reason: cough) Qty: 100 RF: 0 zinc sulfate [Zinc-220] 50 mg zinc (220 mg) Capsule 220 mg PO DAILY Qty: 7 RF: 0 Continued MCT Oil 7.7 kcal/mL oil 15 ml PO DAILY RF: 0 Collegen Powder 1 applic PO PRN RF: 0 [place] PO RF: 0 omega-3 fatty acids [Fish Oil Concentrate] 1,000 mg capsule 1,000 mg PO DAILY RF: 0 metformin 850 mg tablet 850 mg PO BID Qty: 180 RF: 4 levothyroxine 75 mcg tablet 75 mcg PO DAILY Qty: 90 RF: 2 vitamin B complex 1 EACH tablet 1 ea PO daily prn RF: 0 C-PAP RF: 0 triamcinolone acetonide 15 GM cream 1 addison Topical BID PRNQty: 15 RF: 4 chlorhexidine gluconate [Hibiclens] 236 ML liquid 1 addison Topical DAILY PRNQty: 236 RF: 11 cholecalciferol (vitamin D3) 1,000 unit tablet 2,000 unit PO DAILY RF: 0 ibuprofen 600 mg tablet 600 mg PO Q8H PRN Qty: 100 RF: 3 (DME) Blood Glucose Test Strip See Rx Instructions .ROUTE .MEDSUPPLY Qty: 100 RF: 4 (DME) lancets [facility] [place] See Rx Instructions .MEDSUPPLY Qty: 100 RF: 3 alcohol swabs [Alcohol Pads] Pads, Medicated 2 pad topical BID Qty: 200 RF: 5 (DME) blood glucose control, normal [OneTouch Ultra Control] Solution See Rx Instructions .ROUTE .MEDSUPPLY Qty: 1 RF: 6 (DME) FreeStyle Lanette 2 [facility] [place] See Rx Instructions .ROUTE .MEDSUPPLY Qty: 1 RF: 0 (DME) FreeStyle Lanette 2 Sensor Kit See Rx Instructions .ROUTE .MEDSUPPLY Qty: 2 RF: 2 (DME) pen needle, diabetic [Comfort EZ Pen [place]] 31 gauge x 3/16 needle See Rx Instructions .ROUTE .MEDSUPPLY Qty: 100 RF: 4 clotrimazole-betamethasone 1-0.05 % cream 1 applic Topical BID PRN (Reason: ERYTHEMA) Qty: 45 RF: 0 benzonatate 100 mg capsule 100 mg PO TID PRN (Reason: cough) Qty: 30 RF: 0 Changed ascorbic acid (vitamin C) [Vitamin C With Ronna Hips] 500 MG tablet 1,000 mg PO BID Qty: 0 RF: 0 Lantus Solostar U-100 Insulin 100 unit/mL (3 mL) insulin pen 45 unit subcut HS Qty: 4 RF: 4 Discharge Instructions Instructions: COVID-19 (Coronavirus Disease 2019) (DC) Additional Instructions: You must self-isolate for 8 more days starting today. Follow up with PCP for further insulin management. Return to the hospital with any worsening in your breathing, O2 saturations <90%, chest pain. Referrals: Jose Crawford MD [Primary Care Provider] - Activity:: Activity as Tolerated Equipment/Supplies:: No Equipment Needed Diet:: Carb Counting Discharge Orders Discharge Orders: Discharge Order (Routine); Ordered 07/05/21 Ordered By: Cathy Mondragon DS: Summary Time Spent with Patient providing and/or coordinating discharge services: Greater than 30 minutes Status at Discharge Functional status at discharge: independent ambulation Overall status at discharge: patient is progressing back to baseline Mental Status: mental status grossly normal Speech and Movement: speech and movement normal Mood: congruent mood Affect: normal affect Exam Narrative Exam Narrative: On day of discharge, the patient was interviewed over the phone rather than being examined in person due to her diagnosis of COVID-19 and stability of her condition. The patient was coughing, was speaking in complete sentences, with appropriate speech pattern/content. Psych Mental Status: mental status grossly normal Speech and Movement: speech and movement normal Mood: congruent mood Affect: normal affect DS: Data Vitals/I&O Vitals and I&O: Vital Signs Temperature 36.2 C L 07/05/21 08:02 Temperature Source Temporal Artery Scan 07/05/21 08:02 Pulse 68 07/05/21 08:02 Pulse Rhythm Regular 07/05/21 08:54 Pulse 82 07/02/21 18:03 Respiratory Rate 18 07/05/21 08:02 Respiratory Effort Non-Labored 07/05/21 08:54 Respiratory Depth Normal 07/05/21 08:54 Respiratory Pattern Normal 07/05/21 08:54 Blood Pressure 133/72 07/05/21 08:02 Blood Pressure Mean 85 07/02/21 17:31 Pulse Oximetry 92 07/05/21 08:02 Oxygen Delivery Method Room Air 07/05/21 08:02 Oxygen Flow Rate 0 07/05/21 08:02 Fraction of Inspired Oxygen (FIO2) 94 07/02/21 23:23 Pain Level 0 07/05/21 08:02 Intake & Output 07/04/21 07/04/21 07/05/21 11:59 23:59 11:59 Intake Total 250 / 960 710 / 960 210 / 210 Output Total 750 / 1969 / 1969 350 / 350 Balance -500 / -1010 -160 / -1010 -140 / -140 Weight 94.7 kg Intake: IV Oral 250 / 950 700 / 950 200 / 200 Output: Urine 750 / 1969 87 / 1969 350 / 350 Other: Urine Color Yellow Yellow Yellow Straw Urine Appearance Clear Clear Clear Urine Odor Normal Normal Normal Comment multiple voids Stool Size Moderate Stool Characteristics Soft Brown Voiding Methods Toilet Toilet Toilet Data Completed and Pending Completed studies during hospitalization [Text1]: CXR: Multifocal pneumonia. Labs on day of discharge: Labs from last 24 hours 07/05/21 07/05/21 07/05/21 06:25 06:25 06:25 WBC 9.60 RBC 4.64 Hgb 12.7 Hct 38.1 MCV 82.1 MCH 27.4 MCHC 33.3 RDW 12.8 Plt Count 290 MPV 10.8 Immature Gran % 0.0 Neutrophils % 77.0 Lymphocytes % 14.0 Atypical Lymphs % 2 Monocytes % 7.0 Eosinophils % 0.0 Basophils % 0.0 Nucleated RBC % 0 Absolute Neutrophils 7.39 H Absolute Lymphocytes 1.54 Absolute Monocytes 0.67 Absolute Eosinophils 0.00 Absolute Basophils 0.00 RBC Morphology Normal PT 10.4 INR 1.0 D-Dimer 1507 H Sodium Potassium Chloride Carbon Dioxide Anion Gap BUN Creatinine Estimated GFR/1.73 m2 Glucose Calcium Magnesium Ferritin Total Bilirubin Conjugated Bilirubin AST ALT Alkaline Phosphatase C-Reactive Protein Total Protein Albumin 25-OH Vitamin D Total Procalcitonin < 0.1 07/05/21 07/04/21 06:25 07:05 WBC RBC Hgb Hct MCV MCH MCHC RDW Plt Count MPV Immature Gran % Neutrophils % Lymphocytes % Atypical Lymphs % Monocytes % Eosinophils % Basophils % Nucleated RBC % Absolute Neutrophils Absolute Lymphocytes Absolute Monocytes Absolute Eosinophils Absolute Basophils RBC Morphology PT INR D-Dimer Sodium 136 Potassium 4.2 Chloride 102 Carbon Dioxide 26.7 Anion Gap 7.3 BUN 17 Creatinine 0.6 Estimated GFR/1.73 m2 >= 60.00 Glucose 161 H D Calcium 8.9 Magnesium 1.8 Ferritin 310 H Total Bilirubin 0.5 Conjugated Bilirubin 0.2 AST 17 ALT 23 Alkaline Phosphatase 54 C-Reactive Protein 0.58 H Total Protein 6.2 L Albumin 2.6 L 25-OH Vitamin D Total 48.0 Procalcitonin Preliminary micro results at discharge 07/02/21 12:16 Blood Culture - Preliminary Blood NO GROWTH 48 HOURS 07/02/21 12:16 Blood Culture - Preliminary Blood NO GROWTH 48 HOURS [facility] Active Problem List (Updated 07/05/21 @ 10:33 by Cathy Mondragon MD) Obesity (BMI 30-39.9) (Chronic) Steroid-induced hyperglycemia (Acute) Pneumonia due to COVID-19 virus (Acute) COVID-19 (Acute) Vitamin D deficiency (Acute) Back pain (Chronic) Medical History (Updated 07/05/21 @ 10:33 by Cathy Mondragon MD) Bilateral carotid bruits Depressive disorder Essential hypertension (07/26/13) Hyperlipidemia pt declines RX/ LDL>160 () Hypothyroidism (11/01/12) Left-sided low back pain with left-sided sciatica 2005-LEFT sciatica; MRI 02/02-large central disc herniation L4-5; 08/07- recurrent and worse right doejufal-Y6-9 disk Non-alcoholic fatty liver disease (12/31/13) Obesity Obstructive sleep apnea syndrome inital study at [facility], f/u study 02/24/12 at [facility], severe sleep apnea. C-pap Severe aortic stenosis by prior echocardiogram Uncontrolled type 2 diabetes mellitus Non-complicance/ not taking insulin/HbA1c 12.8 (-) normal eye exam:/no db nephropathy Surgical History History of appendectomy Family History Mother Essential hypertension Personal history of malignant neoplasm LUNG Heart disease Stroke Father Alcohol abuse Personal history of malignant neoplasm Liver Sister No problems noted. Sister No problems noted. Sister Depression Grandfather Stroke Grandfather No problems noted. Grandmother Personal history of malignant neoplasm BREAST Grandmother No problems noted. Social History Smoking/Tobacco Use Status: Never Second Hand Exposure: Yes Smoking risk assessment performed?: Yes Alcohol Intake: current Alcohol Intake frequency: a few times a month Alcohol type: wine Drug use: Never Substance use type: does not use Household members: none Housing: apartment Communication Needs: None Do you need help understanding health information?: Rarely Pets and animals: Yes Pets and animals: other Details: rabbit Sexually active: No Do you think of yourself as: straight/heterosexual Current gender identity: female What is your relationship status?: never How often do you talk on the phone with friends or family?: twice per week How often do you get together with friends or relatives?: once per week How often do you attend scientologist or lutheran services?: 4 or more times per year Panel score (0-1 are the most socially isolated patients): 2 What type of physical activity do you participate in: walking Duration: 15-30 minutes/day Frequency: 1-2 times per week Ludmila/Rastafarian: Restorationism Seatbelt use: always Drive intox or ride w/intox driver education road instructor: No Do you feel safe at home: Yes Do you feel safe in your relationship?: Yes
[2021-07-05 11:13] LABS: HIV-1/2 Ag & Ab Screen Negative (Negative)
[2021-07-05 11:30] LABS: HBs Antibody, Qual Negative (See Note); HBs Antibody, Quant 3.4 mIU/mL (See Note); Hepatitis B Core Antibody Negative (Negative); Hepatitis B surface Ag Negative (Negative); Hepatitis C Ab w Rflx HCV PCR Negative (Negative)
--- NOTE | 2021-07-05 12:37 | PDOC.CMDIS ---
- If Service Date Differs Date of service: 07/05/21 Time of Service: 12:37 LACE Index Scoring Tool - Questions: Length of Stay (in days): 3 Acuity (Admit via E.D.?): Yes E.D. Visits: 2 - Answers: Total Score: 8 Risk of Readmission: Low Risk Care Management Discharge Reason for Hospitalization: Covid-19 Pneumonia Discharge Plan: Emmy returned home today with no new services. Her friend will drive her home via private vehicle. She will follow up with her PCP and discharge plan of care. She is happy to be going home today. Patient/Family Education Needs: Review discharge instructions regarding activity levels and medications, discussion of self care needs including ask me three.
[2021-07-05 12:39] VITALS: PULSE 82
== END 2021-07-05 13:04 | disposition home or self-care (01) | DRG 177 ==
LOC: ER 13:16 → MS 18:40
PROVIDERS: Internal Medicine; Admitting Provider Internal Medicine; Emergency Provider Emergency Medicine; PCP Family Medicine; Visit Provider Internal Medicine
DX: U07.1 COVID-19 (principal); J12.82 Pneumonia due to coronavirus disease 2019; I10 Essential (primary) hypertension; E11.65 Type 2 diabetes mellitus with hyperglycemia; Z68.35 Body mass index [BMI] 35.0-35.9, adult; I35.0 Nonrheumatic aortic (valve) stenosis; K76.0 Fatty (change of) liver, not elsewhere classified; E03.9 Hypothyroidism, unspecified; E66.9 Obesity, unspecified; E78.5 Hyperlipidemia, unspecified; G47.33 Obstructive sleep apnea (adult) (pediatric); Z79.4 Long term (current) use of insulin; Z79.84 Long term (current) use of oral hypoglycemic drugs; R09.02 Hypoxemia; E55.9 Vitamin D deficiency, unspecified; F32.A Depression, unspecified; M54.42 Lumbago with sciatica, left side
CPT/HCPCS: 36415; 80048; 80053; 80076; 82306; 82550; 82947; 84145; 85652; 86704; 86706; 86803; 86850; 86900; 86901; 87040; 87340; 87389; 87635; 94618; 96361; 96365; 96375; 99285; J1650; 71045; 82728; 83036; 83615; 83735; 83880; 84484; 85025; 85379; 85610; 86140; 99223; 99232; 99239; J0131; J1100; J8540

== ENCOUNTER 2021-07-14 14:27 | Outpatient (CLI) | payer OTHER, SELFPAY ==
--- NOTE | 2021-07-14 14:15 | RT.EKG_ITS ---
APPROVED REPORT Exam: Resting ECG Reason for Exam: A fib on EKG compare Patient Location: O HR:67 bpm ECG Measurements Heart Rate 67 AXIS IL 132 P 35 QRSd 88 QRS -23 QT 397 T 17 QTc 419 Conclusion Sinus rhythm...normal P axis, V-rate 60- 99 LVH with secondary repolarization abnormality...multi-LVH criteria, abnrm ST-T
== END 2021-07-14 14:28 | disposition home or self-care (01) ==
LOC: DI.CM 14:28
PROVIDERS: PCP Family Medicine; Visit Provider Family Medicine
DX: I48.0 Paroxysmal atrial fibrillation (principal)
CPT/HCPCS: 93010

== ENCOUNTER 2021-07-29 10:11 | Outpatient (CLI) | payer OTHER, SELFPAY ==
--- NOTE | 2021-07-27 09:00 | NS.NUTBLAN_ITS ---
Emmy returns for Medical Nutrition Therapy for diabetes self management education and data download from Grabbit 2 Continuous Glucose Monitor. DM meds: 850 mg metformin BID, 38 units lantus qd (0.42 units/kg). Ambulatory Glucose Profile: Dates: 07/14/21-07/27/21 Actual Goal Average Blood Sugar: 144 mg/dl 80-120 mg/dl Glucose Management Indicator: 6.8% < 7% Glucose Variability: 28.8% < 36% Time In Range (70-180 mg/dl) 82% >70% Below 70 mg/dl: 0% < 4% Below 54 mg/dl : 0% < 1% Above 180 mg/dl: 17% < 25% Above 250 mg/dl: 1% < 5% Emmy reports improved glucose management with current lantus dose. At this time, DM well controlled. Encouraged continued focus on keeping Time In Range > 70% of day. Reviewed meal plan. Overall, doing well, despite recent hospitalization for Covid 19. Will continue to follow prn. Faxed AGP report to PCP.
== END 2021-07-29 10:12 | disposition home or self-care (01) ==
LOC: DS 10:12
PROVIDERS: PCP Family Medicine; Visit Provider Dietitian, Registered
DX: Z71.3 Dietary counseling and surveillance (principal); E11.65 Type 2 diabetes mellitus with hyperglycemia
CPT/HCPCS: 97803

== ENCOUNTER 2021-11-03 17:03 | Outpatient (CLI) | payer OTHER, SELFPAY | END 2021-11-03 17:04 | disposition home or self-care (01) | LOC: ABBOTT 17:05 | PROVIDERS: PCP Family Medicine; Visit Provider Family Medicine ==

== ENCOUNTER 2021-11-06 16:39 | Outpatient (REF) | payer OTHER, SELFPAY ==
[2021-11-07 19:40] LABS: COVID-19 RT-PCR UVMMC Result Negative (Negative)
--- NOTE | 2021-11-29 15:04 | DIABASSESS_ITS ---
Date of service: 11/29/21 Time of Service: 15:04 Diabetes Note Reason for Visit: dm NOTE: Emmy returns for CGM data down load. DM meds: 850 mg metformin BID, 38 units lantus at night. She reports having gained 10 lbs. Ambulatory glucose profile indicates very poorly controlled diabetes with average glucose of 321 mg/dl with only 1 % of time being in ideal range of 70- 180 mg/dl. >90% of time > 250 mg/dl, 7% of time 180-125 mg/dl. Requested that Emmy follow up with her PCP at [facility] for medication adjustment. Recommend BID dosing of lantus 20 u AM, 20 u PM with meal time insulin (aspart) 1unit:15 g carbohydrate to start weight. May also benefit from starting a SGLT2i, GLPra of a DPP4 for additional glycemic management. Emmy is very resistant to changing her Dm meds and wants to wait until after vacation in December. Recommend initiating more aggressive diabetic control cortney to reduce complications associated with poorly controlled Dm2. AGP report sent to [facility] Time Spent in Nutritional Counseling and Treatment: 20
== END 2021-11-06 16:40 | disposition home or self-care (01) ==
LOC: LBN 16:39
PROVIDERS: PCP Family Medicine; Visit Provider Physician Assistant
DX: J02.9 Acute pharyngitis, unspecified (principal); Z20.822 Contact with and (suspected) exposure to COVID-19
CPT/HCPCS: U0003; 87070

== ENCOUNTER 2021-12-14 02:00 | Outpatient (CLI) | payer OTHER, SELFPAY ==
[2021-12-14 11:32] LABS: Hemoglobin A1C 10.5 % (<5.7)
== END 2021-12-14 02:01 | disposition home or self-care (01) ==
LOC: LBO 02:00
PROVIDERS: PCP Family Medicine; Visit Provider Family Medicine
DX: E03.9 Hypothyroidism, unspecified (principal); E11.65 Type 2 diabetes mellitus with hyperglycemia; Z79.4 Long term (current) use of insulin; E66.9 Obesity, unspecified
CPT/HCPCS: 36415; 83036; 84443

== ENCOUNTER → 2021-12-31 15:54 | Outpatient (CLI) | payer OTHER, SELFPAY ==
--- NOTE | 2021-12-31 12:15 | DI.RAD_ITS ---
Exam(s) XR THUMB LT EXAM: XR THUMB LT EXAM DATE/TIME: CLINICAL HISTORY: left thumb pain M79.645. TECHNIQUE: 2D digital imaging was performed of the left finger. Three views were obtained. PA/AP, oblique, and lateral views were obtained. COMPARISON: None. FINDINGS: BONES: No acute fracture is present. No bony destructive lesion is seen. JOINTS: No dislocation is present. SOFT TISSUE: Normal. Dystrophic calcifications are seen in the soft tissues around the DIP joint. IMPRESSION: No evidence of acute fracture or dislocation. DATA REPOSITORY: RADIATION DOSE DELIVERED:
--- NOTE | 2022-02-03 13:39 | W.NUTRFU ---
Date of service: 02/03/22 Time of Service: 13:39 Nutrition Note NOTE: Emmy returns for data down load for her Lanette 2 Continuous Glucose Monitor. Requested data sharing, awaiting approval. Ambulatory Glucose Profile indicates very poor glycemic control with Glucose Management Indicator (GMI) of 9.6%. Average Blood sugar in last 14 day look back period (02/02/22-01/20/22): 262 mg/dl. Time in Range: 4% (70-180 mg/dl), 181-250 mg/dl: 44%, >250 mg/dl: 52%. No hypoglycemic events. Current Dm meds: 45 units lantus HS, 850 mg metformin BID. Has script for dulaglutide .75 mg q week, 25 mg Jardiance. Encouraged Emmy to fill and try additional Dm meds for improved glycemic control. Time Spent in Nutritional Counseling and Treatment: 5
== END ==
PROVIDERS: PCP Family Medicine; Visit Provider Family Medicine
DX: M79.645 Pain in left finger(s) (principal); M25.842 Other specified joint disorders, left hand
CPT/HCPCS: 73140

== ENCOUNTER → 2022-06-13 03:19 | Outpatient (CLI) | payer OTHER, SELFPAY ==
--- NOTE | 2022-06-13 08:45 | DI.MAMMO_ITS ---
Exam(s) MAMMO SCREENING EXAM: MAMMO SCREENING CLINICAL HISTORY: screening, Z12.39. TECHNIQUE: Bilateral full field digital CC and MLO mammographic images were obtained with 3D tomosyn thesis and utilizing computer aided detection (CAD). COMPARISON: Prior mammograms were reviewed. FINDINGS: There has been no significant change in the appearance and distribution of the fibroglandular tissue. There are no new spiculated masses nor malignant appearing microcalcification groups. There is no significant architectural distortion nor skin thickening-retraction. IMPRESSION: No radiographic evidence of malignancy. BI-RADS Category 1 - Negative Breast Density - Category B - Scattered areas of fibroglandular density Breast density Category C or D implies that the patient has dense breast tissue. Dense breast tissue can make it harder to find cancer on a mammogram. Dense breast tissue is also associated with an incr eased risk of breast cancer. This information about the result of the mammogram report was provided to the patient to raise their awareness. Use this report when you speak with the patient about their risks for breast cancer, which includes their family history. At that time, you may recommend additional screening tests (Ultrasoun d or MRI) as these tests may add significant information. A negative radiographic report should not delay biopsy if a dominant or clinically suspicious mass is present. Up to ten percent of cancers are not identified on mammography. A negative report may reinforce clinical impression. Adenosis and dense breasts may obscure an underlying neoplasm. False positive reports average 6 to 10%. Patient will receive a letter notifying them of these results.
== END ==
PROVIDERS: PCP Family Medicine; Visit Provider Family Medicine
DX: Z12.31 Encounter for screening mammogram for malignant neoplasm of breast (principal)
CPT/HCPCS: 77063; 77067

== ENCOUNTER 2022-06-27 14:57 | Outpatient (CLI) | payer OTHER, SELFPAY ==
--- NOTE | 2022-06-27 14:45 | DI.RAD_ITS ---
Exam(s) XR KNEE RT 3V AP,LAT,LA EXAM: XR KNEE RT 3V AP,LAT,LA CLINICAL HISTORY: R knee pain. TECHNIQUE: 2D digital imaging was performed. Three views. COMPARISON: MR MRI R LOWER JOINT WO CONT from 07/15/2015 FINDINGS: BONES: No acute fracture is present. No bony destructive lesion is seen. JOINTS: On oxkr-zm-avhhviij narrowing of the medial femoral tibial joint space and mild periarticular spurring. No joint effusion is seen. SOFT TISSUE: Normal. IMPRESSION: Mild degenerative changes medial femoral tibial joint. DATA REPOSITORY: RADIATION DOSE DELIVERED:
== END 2022-06-27 14:58 | disposition home or self-care (01) ==
LOC: DIORS 14:58
PROVIDERS: PCP Family Medicine; Referring Provider Family Medicine; Visit Provider Physician Assistant
DX: M25.561 Pain in right knee (principal); M17.11 Unilateral primary osteoarthritis, right knee
CPT/HCPCS: 73562

== ENCOUNTER 2022-07-15 12:57 | Outpatient (CLI) | payer OTHER, SELFPAY ==
[2022-07-15 12:43] LABS: ALT 21 U/L (14-59); AST 15 U/L (15-37); Albumin 3.3 g/dL (3.4-5.0); Alkaline Phosphatase 70 U/L (46-116); Anion Gap 7.7 mmol/L (3-11); BUN 14 mg/dL (7-18); Bilirubin, Total 0.6 mg/dL (0.2-1.0); CO2 27.3 mmol/L (21.0-32.0); CREATININE 0.6 mg/dL (0.55-1.02); Calcium 9.2 mg/dL (8.5-10.1); Calculated LDL 169 mg/dL (<100); Chloride 103 mmol/L (98-107); Cholesterol 253 mg/dL (<200); Estimated GFR 100.17 (mL/min/1.73m2); Glucose 142 mg/dL (74-106); HDL Cholesterol 67 mg/dL (40-60); Potassium 3.9 mmol/L (3.5-5.1); Sodium 138 mmol/L (136-145); TSH (W/Ref FT4) 0.98 uIU/mL (0.36-3.74); Total Protein 6.7 g/dL (6.4-8.2); Triglyceride 85 mg/dL (<150); Vitamin B12 499 pg/mL (193-986)
== END 2022-07-15 12:58 | disposition home or self-care (01) ==
LOC: LBO 12:58
PROVIDERS: PCP Family Medicine; Visit Provider Family Medicine
DX: E03.9 Hypothyroidism, unspecified (principal); E11.40 Type 2 diabetes mellitus with diabetic neuropathy, unspecified; E11.65 Type 2 diabetes mellitus with hyperglycemia; E55.9 Vitamin D deficiency, unspecified; Z79.4 Long term (current) use of insulin; Z79.899 Other long term (current) drug therapy
CPT/HCPCS: 36415; 80053; 80061; 82306; 82607; 84443

== ENCOUNTER 2022-07-19 14:39 | Outpatient (REF) | payer OTHER, SELFPAY ==
[2022-07-19 17:48] LABS: COMMENT (LAB VIEW ONLY) 55.91 mg/dL; Microalb ug/mg Crea 23.6 ug/mg Cr
== END 2022-07-19 14:40 | disposition home or self-care (01) ==
LOC: LBN 14:39
PROVIDERS: PCP Family Medicine; Visit Provider Family Medicine
DX: E11.40 Type 2 diabetes mellitus with diabetic neuropathy, unspecified (principal); E11.65 Type 2 diabetes mellitus with hyperglycemia; Z79.4 Long term (current) use of insulin
CPT/HCPCS: 82043; 82570

== ENCOUNTER 2022-08-16 13:19 | Outpatient (CLI) | payer OTHER, SELFPAY ==
--- NOTE | 2022-08-16 13:15 | RT.EKG_ITS ---
APPROVED REPORT Exam: Resting ECG Reason for Exam: chest discomfort Patient Location: O HR:82 bpm ECG Measurements Heart Rate 82 AXIS ME 151 P 66 QRSd 91 QRS -27 QT 389 T 83 QTc 455 Conclusion Sinus rhythm...normal P axis, V-rate 50- 99 Ventricular bigeminy...bigeminy string>4 w/ V complexes LVH with secondary repolarization abnormality...multi-LVH criteria, abnrm ST-T
== END 2022-08-16 13:20 | disposition home or self-care (01) ==
LOC: DI.CM 13:20
PROVIDERS: PCP Family Medicine; Visit Provider Nurse Practitioner Family
DX: R07.89 Other chest pain (principal); R94.31 Abnormal electrocardiogram [ECG] [EKG]
CPT/HCPCS: 93010

== ENCOUNTER 2022-08-16 16:57 | Emergency (ER) | payer OTHER, SELFPAY ==
[2022-08-16] VITALS (31 sets, daily range): BP systolic 107–176; BP diastolic 54–114; PULSE 40–95; RESP 13–31; TEMP 36.2; O2SAT 98
--- NOTE | 2022-08-16 16:45 | RT.EKG_ITS ---
APPROVED REPORT Exam: Resting ECG Reason for Exam: Patient Location: E HR:81 bpm ECG Measurements Heart Rate 81 AXIS NM 152 P 61 QRSd 89 QRS -24 QT 365 T 94 QTc 424 Conclusion Sinus rhythm...normal P axis, V-rate 60- 99 Ventricular trigeminy...trigeminy string>6 w/ V complexes LVH with secondary repolarization abnormality...multi-LVH criteria, abnrm ST-T Physician: Sinus rhythm, rate 81, no significant ST elevation. No STEMI. Minimal less than a millim eter depression in V4, V5, V6. No reciprocal elevations. Intermittent PVCs which appears consistent with bigeminy
--- NOTE | 2022-08-16 17:27 | W.ED.GENAD ---
Discharge Plan Disposition Patient Disposition: Home Condition: Good Discharge Details Chief Complaint: GenMedical Clinical Impression: Influenza, Fatigue, Dyspnea Primary Care Provider: Gela Alaniz ED Provider: Ervin Canales Home Meds and New Rx's Prescriptions: No Action Collegen Powder 1 applic PO PRN omega-3 fatty acids [Fish Oil Concentrate] 1,000 mg capsule 1,000 mg PO DAILY (DME) FreeStyle Lanette 2 Sensor Kit See Rx Instructions .ROUTE .MEDSUPPLY Qty: 2 12RF Rx Instructions: As directed aspirin 81 mg tablet,delayed release (DR/EC) 81 mg PO DAILY Qty: 90 3RF vitamin B complex 1 EACH tablet 1 ea PO daily prn C-PAP Rx Instructions: [facility] 02/24/12 chlorhexidine gluconate [Hibiclens] 236 ML liquid 1 addison Topical DAILY PRNQty: 236 cholecalciferol (vitamin D3) 1,000 unit tablet 2,000 unit PO DAILY alcohol swabs [Alcohol Pads] Pads, Medicated 2 pad topical BID Qty: 200 5RF (DME) FreeStyle Lanette 2 [place] Misc See Rx Instructions .ROUTE .MEDSUPPLY Qty: 1 0RF Rx Instructions: As directed (DME) pen needle, diabetic [Comfort EZ Pen [place]] 31 gauge x 3/16 needle See Rx Instructions .ROUTE .MEDSUPPLY Qty: 100 4RF Rx Instructions: As directed with Lantus clotrimazole-betamethasone 1-0.05 % cream 1 applic Topical BID PRN (Reason: ERYTHEMA) Qty: 45 0RF ibuprofen 600 mg tablet 600 mg PO Q8H PRN Qty: 100 3RF levothyroxine 75 mcg tablet 75 mcg PO DAILY Qty: 90 3RF metformin 850 mg tablet 850 mg PO BID Qty: 180 4RF Rx Instructions: 1 TAB BID zinc sulfate [Zinc-220] 50 mg zinc (220 mg) Capsule 220 mg PO DAILY Qty: 7 0RF ascorbic acid (vitamin C) [Vitamin C With Ronna Hips] 500 MG tablet 1,000 mg PO BID Qty: 0 0RF insulin glargine [Lantus Solostar U-100 Insulin] 100 unit/mL (3 mL) insulin pen 28 unit subcut BID diclofenac sodium 1 % gel 2 g topical QID PRN Rx Instructions: apply to single elbow, wrist or hand; for hand includes palm/fingers/back of hand Discharge Instructions Instructions: Influenza (ED), Dyspnea (ED), Fatigue (ED) Additional Instructions: At this there is no evidence of pneumonia, blood clots or heart attack. Your heart markers have returned normal. However it is still important to follow-up closely with a rest room attendant. We have placed a referral. If you notice any right upper quadrant abdominal pain, nausea or vomiting, or worsening of your symptoms please return immediately for reassessment. Please take your inhaler and Tessalon Perles that you have at home as directed. If you notice any worsening of your symptoms, or any new symptoms such as vomiting, diarrhea, fever, chills, shortness of breath, chest pain, numbness, weakness, or fainting , please return immediately to the emergency department for reevaluation. Please follow up with your primary care provider as soon as possible for reassessment and reevaluation. As always, it was a pleasure participating in your medical care today. Referrals: Gela Alaniz MD [Primary Care Provider] - Medical Decision Making This is a 66-year-old female with significant medical history of type 2 diabetes, pulmonary hypertension, TREE, obesity, hypertension, and hyperlipidemia?who presents today for evaluation of mild shortness of breath. About 1 week ago the patient developed a cough, with some associated shortness of breath runny nose and congestion. She was at home for the following week, cough continued but was mildly improving. Today she went to her primary care provider's office for reassessment, and EKG noticed some ST depression and abnormalities. She was recommended to come to the ER for further evaluation. She did this but a few hours after her initial PCP visit. Currently she admits to mild chest heaviness and shortness of breath. She denies any chest pain. She denies any arm neck or shoulder pain. She denies any chest achiness. She denies any other complaints at this time. Patient's sputum is green in color. She denies any history of blood clots or heart disease. No other complaints at this time. She denies any exertional chest pain. Physical exam demonstrates well-appearing female, clear lung sounds. No calf tenderness. Vital signs are stable, differential includes PE, ACS, or pneumonia. Will evaluate for these etiologies, monitor closely and reassess. 8:58 PM Patient CTA is negative for pulmonary emboli or pneumonia. There is mild gallbladder distention and some noncalcified stones versus sludge, however on reassessment patient has no evidence of a Moran sign, no pain in the right upper quadrant. No evidence of other significant abnormality on laboratory work-up. Troponin and delta troponin are both normal, patient's influenza is positive, she is no longer a candidate for treatment as her symptoms have been over 8 days. There is no evidence of influenza pneumonia on CT scan. EKG is stable. Patient otherwise feels well. She remains notably hemodynamically stable. With no evidence of significant abnormality, with serial troponins negative, with heart score in the low risk area, I do feel that the patient is stable for discharge. Discussed red flags for which to return. Patient does have an inhaler and Tessalon Perles at home, recommended she take these as needed. Discussed concerning symptoms that would indicate evidence of cholecystitis, which she does not have now, and she is aware of these and for what to return for. I have extensively reviewed the treatment plan and discharge instructions with the patient. I have addressed all patient concerns at this time. The patient was made aware of what symptoms to monitor for that would warrant a return to the emergency department. Discussed the plan with the patient, they demonstrate verbal understanding and agreement with our assessment and plan at this time. The documentation in this chart was dictated using [employer] dictation software. Please excuse any dictation errors. EKG 17: 09 Sinus rhythm, rate 81, no significant ST elevation. No STEMI. Minimal less than a millimeter depression in V4, V5, V6. No reciprocal elevations. Intermittent PVCs which appears consistent with bigeminy FINDINGS: Mildly limited due to respiratory motion artifact Pulmonary arteries: No pulmonary emboli. Aorta: Unremarkable. No aortic aneurysm. No aortic dissection. Lungs: Unremarkable. No consolidation. No masses. Pleural spaces: Unremarkable. No pneumothorax. No pleural effusion. Heart: Unremarkable. No cardiomegaly. No pericardial effusion. Lymph nodes: Unremarkable. No enlarged lymph nodes. Bones/joints: Unremarkable. No acute fracture Soft tissues: Unremarkable. Mild gallbladder distention and question faint sludge versus noncalcified stones IMPRESSION: No pulmonary emboli observed Mild gallbladder distention and faint noncalcified stones versus sludge. Consider right upper quadrant ultrasound Thank you for allowing us to participate in the care of your patient. Dictated and Authenticated by: Trent Tanner MD 08/16/2022 7:12 PM Eastern Time ([place] & [place]) HPI General Date/Time Provider Initiated Documentation: 08/16/22 16:57. HPI Narrative: This is a 66-year-old female with significant medical history of type 2 diabetes, pulmonary hypertension, TREE, obesity, hypertension, and hyperlipidemia?who presents today for evaluation of mild shortness of breath. About 1 week ago the patient developed a cough, with some associated shortness of breath runny nose and congestion. She was at home for the following week, cough continued but was mildly improving. Today she went to her primary care provider's office for reassessment, and EKG noticed some ST depression and abnormalities. She was recommended to come to the ER for further evaluation. She did this but a few hours after her initial PCP visit. Currently she admits to mild chest heaviness and shortness of breath. She denies any chest pain. She denies any arm neck or shoulder pain. She denies any chest achiness. She denies any other complaints at this time. Patient's sputum is green in color. She denies any history of blood clots or heart disease. No other complaints at this time. She denies any exertional chest pain. Related Data Home Medications Medication Instructions Recorded Confirmed vitamin B complex 1 ea PO daily prn 11/01/12 08/16/22 C-Pap 07/04/14 06/27/22 chlorhexidine gluconate 4 % 1 addison topical DAILY PRN #236 mL 08/01/17 08/16/22 topical liquid (Hibiclens) cholecalciferol (vitamin D3) 25 2,000 unit PO DAILY 06/27/18 08/16/22 mcg (1,000 unit) tablet omega-3 fatty acids 1,000 mg 1,000 mg PO DAILY 12/12/18 08/16/22 capsule (Fish Oil Concentrate) alcohol swabs (Alcohol Pads) 2 pad topical BID #200 ea 09/29/20 06/27/22 Collegen Powder 1 applic PO PRN 02/23/21 06/27/22 flash glucose scanning reader #1 ea 03/08/21 06/27/22 (FreeStyle Lanette 2 [place]) pen needle, diabetic 31 gauge x #100 ea 03/19/21 06/27/2210/13 (Comfort EZ Pen [place]) clotrimazole-betamethasone 1 1 applic topical BID PRN ERYTHEMA 06/22/21 08/16/22 %-0.05 % topical cream #45 grams ascorbic acid (vitamin C) 500 mg 1,000 mg PO BID #0 tabs 07/05/21 08/16/22 tablet (Vitamin C With Ronna Hips) zinc sulfate 50 mg zinc (220 mg) 220 mg PO DAILY #7 caps 07/05/21 08/16/22 capsule (Zinc-220) ibuprofen 600 mg tablet 600 mg PO Q8H PRN #100 tab-caps 07/16/21 08/16/22 aspirin 81 mg tablet,delayed 81 mg PO DAILY #90 tabs 08/04/21 08/16/22 release flash glucose sensor (FreeStyle #2 ea 08/04/21 06/27/22 Lanette 2 Sensor kit) levothyroxine 75 mcg tablet 75 mcg PO DAILY #90 tab-caps 05/31/22 08/16/22 metformin 850 mg tablet 850 mg PO BID #180 tab-caps 05/31/22 08/16/22 diclofenac sodium 1 % topical gel 2 g topical QID PRN 08/16/22 08/16/22 insulin glargine 100 unit/mL (3 28 unit subcut BID 08/16/22 08/16/22 mL) subcutaneous pen (Lantus Solostar U-100 Insulin) Previous Rx's Medication Instructions Recorded alcohol swabs (Alcohol Pads) 2 pad topical BID #200 ea 09/29/20 flash glucose scanning reader #1 ea 03/08/21 (FreeStyle Lanette 2 [place]) pen needle, diabetic 31 gauge x #100 ea 03/19/2110/13 (Comfort EZ Pen [place]) clotrimazole-betamethasone 1 1 applic topical BID PRN ERYTHEMA 06/22/21 %-0.05 % topical cream #45 grams ascorbic acid (vitamin C) 500 mg 1,000 mg PO BID #0 tabs 07/05/21 tablet (Vitamin C With Ronna Hips) zinc sulfate 50 mg zinc (220 mg) 220 mg PO DAILY #7 caps 07/05/21 capsule (Zinc-220) ibuprofen 600 mg tablet 600 mg PO Q8H PRN #100 tab-caps 07/16/21 aspirin 81 mg tablet,delayed 81 mg PO DAILY #90 tabs 01/05/22 release flash glucose sensor (FreeStyle #2 ea 08/04/21 Lanette 2 Sensor kit) levothyroxine 75 mcg tablet 75 mcg PO DAILY #90 tab-caps 05/31/22 metformin 850 mg tablet 850 mg PO BID #180 tab-caps 05/31/22 Allergies Allergy/AdvReac Type Severity Reaction Status Date / Time lisinopril AdvReac Mild tickle in Verified 08/16/22 17:21 throat doxycycline AdvReac YEAST Verified 08/16/22 17:21 INFECTION erythromycin base AdvReac YEAST Verified 08/16/22 17:21 INFECTION methylprednisolone AdvReac GI UPSET Verified 08/16/22 17:21 tramadol AdvReac GI UPSET Verified 08/16/22 17:21 General Stated Complaint: GenMedical HALINA: 3 Review of Systems All systems reviewed & are unremarkable except as noted in HPI and below PFSH All Active Problems (Updated 08/16/22 @ 21:03 by Ervin Canales DO) Influenza (Acute) Fatigue (Acute) Dyspnea (Acute) Contusion of right knee (Acute) Trigger thumb of left hand (Acute) Depo-medrol injection: 05/23/22 Bilateral carpal tunnel syndrome (Acute) Cubital tunnel syndrome on left (Acute) Essential hypertension (Acute 07/26/13) Hyperlipidemia (Acute) pt declines RX/ LDL>160 (-2019) Hypothyroidism (Acute 11/01/12) Vitamin D deficiency (Acute) Obesity (BMI 30-39.9) (Chronic) Uncontrolled diabetes mellitus with diabetic neuropathy, with long-term current use of insulin (Acute ~2008) using CGM with improvement Pulmonary hypertension (Acute 09/09/19) Achilles tendon pain (Acute) bilateral Pain of left thumb (Acute) Numbness of left hand (Acute) Right knee pain (Acute) Right elbow pain (Acute) Right shoulder pain (Acute) Medical History COVID-19 06/2021-associated with pneumonia and hospitalization at [facility] H Depressive disorder Left-sided low back pain with left-sided sciatica 2005-LEFT sciatica; MRI 02/02-large central disc herniation L4-5; 08/07-recurrent and worse right [id number] disk Non-alcoholic fatty liver disease (12/31/13) Obstructive sleep apnea syndrome inital study at [facility] [place], f/u study 02/24/12 at [facility], severe sleep apnea. C-pap Pneumonia due to COVID-19 virus Surgical History History of appendectomy Family History Mother Essential hypertension Personal history of malignant neoplasm LUNG Heart disease Stroke Father Alcohol abuse Personal history of malignant neoplasm Liver Sister No problems noted. Sister No problems noted. Sister Depression Grandfather Stroke Grandfather No problems noted. Grandmother Personal history of malignant neoplasm BREAST Grandmother No problems noted. 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[facility] [facility] Pets and animals: Yes Pets and animals: other Details: rabbit Sexually active: No Do you think of yourself as: straight/heterosexual Current gender identity: female What is your relationship status?: never How often do you talk on the phone with friends or family?: once per week How often do you get together with friends or relatives?: once per week How often do you attend jainism or moravian services?: 4 or more times per year Panel score (0-1 are the most socially isolated patients): 1 NHANES result reviewed/action taken: Yes What type of physical activity do you participate in: walking Duration: < 15 minutes/day Frequency: 1-2 times per week Ludmila/Alevism: Congregational Seatbelt use: always Drive intox or ride w/intox warehouse delivery driver: No Do you feel safe at home: Yes Do you feel safe in your relationship?: Yes Exam Narrative Exam Narrative: 1.Const: Well-nourished, Well-developed, appearing stated age 2.Eyes: PERRL, no conjunctival injection, and symmetrical lids. 3.ENT: Atraumatic external nose and ears. Moist MM. Neck: Symmetric, trachea midline, No thyromegaly. 4.CVS: +S1/S2, No murmurs or gallops. Peripheral pulses 2+ and equal in all extremities. Brisk capillary refill in all extremities. 5.RESP: Unlabored respiratory effort. Clear to auscultation bilaterally. No wheezes rales or rhonchi 6.GI: Soft, Nontender/Nondistended, No hepatosplenomegaly. No guarding or rebound. 7.MSK: Normocephalic/Atraumatic, Extremities w/o deformity or ttp No cyanosis or clubbing, Normal movement of all extremities, no calf tenderness. 8.Skin: Warm, Dry. No rashes or lesions. 9.Neuro: doctorate of chiropractic II-XII grossly intact. Sensation grossly intact, no focal neurologic deficits. 10.Psych: (AAO) x3. Appropriate mood and affect Course Vital Signs Vital signs: Vital Signs Temperature 36.2 C L 08/16/22 17:00 Pulse 83 08/16/22 17:00 Respiratory Rate 18 08/16/22 17:00 Blood Pressure 174/87 H 08/16/22 17:00 Pulse Oximetry 98 08/16/22 17:00 Temperature 36.2 C L 08/16/22 17:00 Temperature Source Skin 08/16/22 17:00 Pulse 83 08/16/22 17:00 Respiratory Rate 18 08/16/22 17:00 Blood Pressure 174/87 H 08/16/22 17:00 Blood Pressure Position Supine 08/16/22 17:00 Pulse Oximetry 98 08/16/22 17:00 Oxygen Delivery Method Room Air 08/16/22 17:00 Oxygen Flow Rate 0 08/16/22 17:00 Pain Level 0 08/16/22 17:00
[2022-08-16 17:37] LABS: HCT 44.7 % (36.0-46.0); HGB 14.4 g/dL (11.2-15.7); MCH 26.8 pg (27.0-33.0); MCHC 32.2 % (32.0-36.0); MCV 83 fL (80-95); Platelet Count 234 10^3/uL (130-400); RBC 5.37 10^6/uL (3.93-5.22); RDW 12.9 % (11.7-14.6); RDW-SD 38.7 fL; WBC 5.34 10^3/uL (4.4-10.8)
[2022-08-16 17:51] LABS: PTT Activated 22.6 sec (21.0-27.5); Prothrombin Time 9.9 sec (9.3-11.0)
[2022-08-16 18:02] LABS: ALT 22 U/L (14-59); AST 19 U/L (15-37); Albumin 3.5 g/dL (3.4-5.0); Alkaline Phosphatase 72 U/L (46-116); Anion Gap 6.3 mmol/L (3-11); BUN 11 mg/dL (7-18); Bilirubin, Total 0.5 mg/dL (0.2-1.0); CO2 28.7 mmol/L (21.0-32.0); CREATININE 0.8 mg/dL (0.55-1.02); Calcium 9.3 mg/dL (8.5-10.1); Chloride 101 mmol/L (98-107); Estimated GFR 82.23 (mL/min/1.73m2); Glucose 350 mg/dL (74-106); NT-proBNP 170 pg/mL (<300); Potassium 4.1 mmol/L (3.5-5.1); Sodium 136 mmol/L (136-145); Total Protein 7.3 g/dL (6.4-8.2); Troponin I < 50 ng/L (<or=60)
[2022-08-16 18:03] LABS: Absolute Eosinophil Count 0.05 10^3/uL (0.0-0.7); Absolute Lymphocyte Count 1.92 10^3/uL (1.2-3.4); Absolute Monocyte Count 0.37 10^3/uL (0.1-0.8); Absolute Neutrophil Count 2.99 10^3/uL (1.2-6.7)
[2022-08-16 18:04] LABS: Atypical Lymphocytes % 2; Diff Comment Manual Differential; RBC Morphology Normal
[2022-08-16 18:12] LABS: COVID-19 PCR Negative (Negative); Influenza A PCR Positive (Negative); Influenza B PCR Negative (Negative); RSV PCR Negative (Negative)
[2022-08-16 18:13] LABS: Source Nasopharynx
[2022-08-16 18:25] LABS: D-Dimer 693 ng/mlFEU (<500)
--- NOTE | 2022-08-16 18:30 | DI.CT_ITS ---
Exam(s) CT CHEST PE CTA EXAM: CT CHEST PE CTA CLINICAL HISTORY: cough, elevated dimer, r/o pe. TECHNIQUE: Imaging Protocol: CT angiography of the chest was performed using pulmonary embolus romel col. Multi planar reconstructions were performed. CONTRAST MATERIAL: Intravenous: Omnipaque 350 Contrast volume: 100 cc COMPARISON: CT CT CHEST PE CTA from 06/28/2021 FINDINGS: CHEST: PULMONARY ARTERIES: There are no intraluminal filling defects to suggest acute pulmonary emboli. LUNGS: There are no infiltrates nor evidence of pulmonary infarction.. There are no pleural effusions . MEDIASTINUM: There is no hilar nor mediastinal adenopathy. Visualized thyroid unremarkable. CARDIAC: Heart size is upper normal. There is no pericardial effusion.Caliber of the thoracic aorta is within normal limits. There is no significant shift of the interventricular septum. PARTIALLY VISUALIZED UPPERMOST ABDOMEN: Mildly distended gallbladder. OSSEOUS: No significant osseous lesions.. IMPRESSION: 1. No evidence of acute pulmonary emboli. No evidence of pulmonary infarction.No pleural effusions. 2. No infiltrates nor pleural effusions. No intrathoracic adenopathy. 3. Distended gallbladder incidentally noted. No obvious radiopaque calculi within the gallbladder yovanny men. RADIATION DOSE DELIVERED: 643mGy.cm Total DLP DATA REPOSITORY: All CT scans at this facility are submitted to the National Radiology Data Registry (NRDR) Dose Index Registry (DIR) with the [employer] ([employer]). RADIATION OPTIMIZATION: All CT scans at this facility use at least one of these dose optimization te chniques: automated exposure control; mA and/or kV adjustment per patient size (includes targeted exa ms where dose is matched to clinical indication); or iterative reconstruction.
--- NOTE | 2022-08-16 19:13 | DI.VRAD_ITS ---
PROCEDURE INFORMATION: Exam: CTA Chest With Contrast Exam date and time: 08/16/2022 6:54 PM Age: 66 years old Clinical indication: Other: Cough, elevated dimer, R/O pe TECHNIQUE: Imaging protocol: Computed tomographic angiography of the chest with contrast. 3D rendering (Not supervised by radiologist): MIP and/or 3D reconstructed images were created by the technologist. Radiation optimization: All CT scans at this facility use at least one of these dose optimization techniques: automated exposure control; mA and/or kV adjustment per patient size (includes targeted exams where dose is matched to clinical indication); or iterative reconstruction. Contrast material: OMNIPAQUE 350; Contrast volume: 100 ml; Contrast route: INTRAVENOUS (IV); COMPARISON: CT CHEST PE CTA 06/28/2021 2:37 PM FINDINGS: Mildly limited due to respiratory motion artifact Pulmonary arteries: No pulmonary emboli. Aorta: Unremarkable. No aortic aneurysm. No aortic dissection. Lungs: Unremarkable. No consolidation. No masses. Pleural spaces: Unremarkable. No pneumothorax. No pleural effusion. Heart: Unremarkable. No cardiomegaly. No pericardial effusion. Lymph nodes: Unremarkable. No enlarged lymph nodes. Bones/joints: Unremarkable. No acute fracture. Soft tissues: Unremarkable. Mild gallbladder distention and question faint sludge versus noncalcified stones IMPRESSION: No pulmonary emboli observed Mild gallbladder distention and faint noncalcified stones versus sludge. Consider right upper quadrant ultrasound Dictated and Authenticated by: Trent Tanner MD. Ordering:DEMETRIUS Mueller MD
[2022-08-16] MEDS: Omnipaque 350 MG/ML 100 ML BTL IJ (19:21)
[2022-08-16 20:41] LABS: Troponin I < 50 ng/L (<or=60)
== END 2022-08-16 21:08 | disposition home or self-care (01) ==
PROVIDERS: Emergency Provider Student in an Organized Health Care Education/Training Program; PCP Family Medicine
DX: J10.1 Influenza due to other identified influenza virus with other respiratory manifestations (principal); R53.83 Other fatigue; N32.89 Other specified disorders of bladder; I10 Essential (primary) hypertension; E11.9 Type 2 diabetes mellitus without complications; R07.89 Other chest pain; Z79.4 Long term (current) use of insulin; Z79.84 Long term (current) use of oral hypoglycemic drugs; Z79.82 Long term (current) use of aspirin; Z86.16 Personal history of COVID-19; Z20.822 Contact with and (suspected) exposure to COVID-19
CPT/HCPCS: 71275; 80053; 87637; 93005; 99285; 83880; 84484; 85025; 85379; 85610; 85730; 93010; J3490

== ENCOUNTER 2022-09-21 01:26 | Outpatient (CLI) | payer OTHER, SELFPAY ==
--- NOTE | 2022-09-21 08:15 | DI.RAD_ITS ---
Exam(s) XR FOOT RT COMPLETE EXAM: XR FOOT RT COMPLETE CLINICAL HISTORY: R foot pain x 10 months,M79.673,M72.2,M76.61,ACHILLES TENDINITS,PLANTAR. TECHNIQUE: 2D digital imaging was performed of the right foot. Three images were obtained. AP, obl ique and lateral views were obtained. COMPARISON: None. FINDINGS: BONES: No acute fracture is present. No bony destructive lesion is seen. There is a small plantar yary caneal spur. JOINTS: No dislocation present. There are mild degenerative changes seen at the 1st MTP joint. SOFT TISSUE: Normal. IMPRESSION: Mild degenerative changes of the 1st MTP joint. DATA REPOSITORY: RADIATION DOSE DELIVERED:
--- NOTE | 2022-09-21 08:15 | DI.RAD_ITS ---
Exam(s) XR FOOT LT COMPLETE EXAM: XR FOOT LT COMPLETE CLINICAL HISTORY: L foot pain x 10 months,M79.673M72.2,M76.62,PLANTAR FASCIAL FIBROMATOUS. TECHNIQUE: 2D digital imaging was performed of the left foot. Three images were obtained. AP, obli que and lateral views were obtained. COMPARISON: CR LEFT FOOT COMPLETE from 03/07/2013 FINDINGS: BONES: No acute fracture is present. No bony destructive lesion is seen. There is a small plantar yary caneal spur. JOINTS: No dislocation present. There are mild degenerative changes seen at the 1st MTP joint. SOFT TISSUE: Normal. IMPRESSION: No acute abnormality. DATA REPOSITORY: RADIATION DOSE DELIVERED:
== END 2022-09-21 01:46 ==
LOC: DI 01:27
PROVIDERS: PCP Family Medicine; Visit Provider Podiatrist Foot & Ankle Surgery
DX: M72.2 Plantar fascial fibromatosis (principal); M76.61 Achilles tendinitis, right leg; M76.62 Achilles tendinitis, left leg; M79.671 Pain in right foot; M79.672 Pain in left foot; M77.31 Calcaneal spur, right foot; M77.32 Calcaneal spur, left foot
CPT/HCPCS: 73630

== ENCOUNTER 2022-10-21 15:05 | Outpatient (CLI) | payer OTHER, SELFPAY ==
--- NOTE | 2022-10-21 15:00 | RT.EKG_ITS ---
APPROVED REPORT Exam: Resting ECG Reason for Exam: Diabetes Patient Location: O HR:67 bpm ECG Measurements Heart Rate [address] 145 P 55 QRSd 87 QRS -26 QT 386 T 52 QTc 408 Conclusion Sinus rhythm...normal P axis, V-rate 50- 99 LVH voltage
== END 2022-10-21 15:06 | disposition home or self-care (01) ==
LOC: DI.CM 15:06
PROVIDERS: PCP Family Medicine; Visit Provider Family Medicine
DX: E11.40 Type 2 diabetes mellitus with diabetic neuropathy, unspecified (principal); E11.65 Type 2 diabetes mellitus with hyperglycemia; Z79.4 Long term (current) use of insulin
CPT/HCPCS: 93010

== ENCOUNTER 2022-12-21 14:11 | Day surgery (SDC) | payer OTHER, SELFPAY ==
[2022-12-21 14:25] VITALS: BP 160/82; PULSE 64; RESP 18; TEMP 36.3; O2SAT 97
--- NOTE | 2022-12-21 15:14 | W.PM.DSUDISC ---
Date of service: 12/21/22 Time of Service: 15:14 Discharge Plan Disposition Patient Disposition: Home Condition: Good Discharge Details Reason For Visit: L Thumb Trigger Release Attending Provider: Janak Quijano Primary Care Provider: Gela Alaniz Home Meds and New Rx's Prescriptions: New acetaminophen 500 mg tablet 1,000 mg PO TID Qty: 90 0RF ibuprofen 600 mg tablet 600 mg PO TID PRN (Reason: pain) Qty: 90 0RF Continued Collegen Powder 1 applic PO PRN ashwagandha root extract 500 mg capsule PO melatonin 5 mg capsule PO PRN manganese 15 mg capsule PO berberine-herbal comb no.18 Capsule PO omega-3 fatty acids [Fish Oil Concentrate] 1,000 mg capsule 1,000 mg PO DAILY aspirin 81 mg tablet,delayed release (DR/EC) 81 mg PO DAILY Qty: 90 3RF C-PAP Rx Instructions: [facility] 02/24/12 chlorhexidine gluconate [Hibiclens] 236 ML liquid 1 addison Topical DAILY PRNQty: 236 cholecalciferol (vitamin D3) 1,000 unit tablet 2,000 unit PO DAILY alcohol swabs [Alcohol Pads] Pads, Medicated 2 pad topical BID Qty: 200 5RF (DME) FreeStyle Lanette 2 Avilla Misc See Rx Instructions .ROUTE .MEDSUPPLY Qty: 1 0RF Rx Instructions: As directed levothyroxine 75 mcg tablet 75 mcg PO DAILY Qty: 90 3RF metformin 850 mg tablet 850 mg PO BID Qty: 180 4RF Rx Instructions: 1 TAB BID vitamin B complex Tablet 1 tab PO DAILY (DME) FreeStyle Lanette 2 Sensor Kit See Rx Instructions .ROUTE .MEDSUPPLY Qty: 2 12RF Rx Instructions: As directed insulin glargine [Lantus Solostar U-100 Insulin] 100 unit/mL (3 mL) insulin pen 28 unit subcut BID Qty: 15 12RF clotrimazole-betamethasone 1-0.05 % cream 1 applic Topical BID PRN (Reason: ERYTHEMA) Qty: 45 0RF (DME) pen needle, diabetic [Comfort EZ Pen [place]] 31 gauge x 3/16 needle See Rx Instructions .ROUTE .MEDSUPPLY Qty: 100 4RF Rx Instructions: As directed with Lantus zinc sulfate [Zinc-220] 50 mg zinc (220 mg) Capsule 220 mg PO DAILY Qty: 7 0RF ascorbic acid (vitamin C) [Vitamin C With Ronna Hips] 500 MG tablet 1,000 mg PO BID Qty: 0 0RF diclofenac sodium 1 % gel 2 g topical QID PRN Rx Instructions: apply to single elbow, wrist or hand; for hand includes palm/fingers/back of hand Discontinued ibuprofen 600 mg tablet 600 mg PO Q8H PRN Qty: 100 3RF Discharge Instructions Stand Alone Forms: Procynthiaa Lindy Finger Release Activity:: Activity as Tolerated Remove Dressings/Wound Care:: 48 hours Shower/Bathe:: 48 hours Diet:: As Tolerated Discharge Orders Discharge Orders: Discharge Order (Routine); Ordered 12/21/22 Ordered By: Prabhakar Alvarenga DS: Diagnosis Discharge Diagnosis (1) Trigger thumb of left hand: Status: Acute
[2022-12-21] MEDS: Lidocaine 1% Pres-Free W/EPI 1/200,000 30 ML VIAL (15:47)
[2022-12-21] MEDS: Sodium Bicarbonate 50 MEQ/50 ML VIAL (15:47)
[2022-12-21 16:10] VITALS: BP 131/62; PULSE 73; RESP 18; TEMP 36.2; O2SAT 97
--- NOTE | 2022-12-21 17:49 | ROE_ITS ---
Date of service: 12/21/22 Time of Service: 15:30 Operative Note Operative Note DATE OF PROCEDURE: 12/21/22 PRE-OP DIAGNOSIS: Left Trigger Thumb POST-OP DIAGNOSIS: same PROCEDURE: Trigger Finger Release - Left Thumb SURGEON: Janak Quijano ANESTHESIA TYPE: Local By Surgeon Refer to Anesthesia Record ESTIMATED BLOOD LOSS: 0 PATHOLOGY: none sent COMPLICATIONS: None Patient was transported to: same day Patient's condition: stable Indications: I have seen Emmy in clinic for symptoms of a trigger finger. The catching, clicking, locking, and pain limited function. The diagnosis of trigger finger was evident. The symptoms had not responded to conservative measures. I discussed trigger finger release with the patient. I reviewed the risks of the procedure to include, but not limited to, bleeding, infection, pain, stiffness, incomplete release, damage to nerves or vessels, continued catching, recurrence. Despite these risks, the patient elected to proceed. Findings: There was a tightened A1 yris which was released. The flexor tendons were inspected and the patient was able to move the finger without any catching, clicking, or locking. Procedure Description: Emmy was greeted in the preoperative holding area where the correct side was identified and marked. The consent was reviewed with the patient and signed. All questions were answered. She was taken back to the operating room. The patient was placed into the sharp pine position on the operating room table with the left arm on an arm board. All bony prominences were well padded. No prophylactic antibiotics were administered since this was a clean, elective hand surgical case. The left arm was then prepped with Chloraprep and draped in a standard fashion with stockinette and extremity drape. A timeout to confirm correct identity, side and site, procedure, allergies, anesthesia, and medical concerns was performed. The surgical site was marked as a longitudinal incision directly over the A1 yris of the involved digit. This was confirmed with palpation during finger flexion. This area, overlying the metacarpal head, was then anesthetized with 1% Lidocaine. The patient tolerated this well and once the anesthetic had setup, the procedure began. A longitudinal incision was made through skin only, approximately 1cm. The deep tissues were dissected bluntly. Once the A1 yris and flexor tendons were identified the soft tissue including neurovascular structures were retracted medially and laterally. There were no crossing structures over the A1 yris. The proximal edge of the yris was identified and the yris was incised with tenotomy scissors. There was a release of the tendons once this was fully released. The tendons were then removed from the wound and inspected. Excess synovium was resected. The tendons were then retur panfilo and the patient was asked to move the thumb into deep flexion and back to extension. There was no recreation of the pre-operative symptoms. The hand was then once more inspected for any A0 yris or area of possible constriction. The wound was then irrigated and the skin was closed with a 4-0 Nylon. This was dressed with gauze and a Conform dressing. The patient tolerated the procedure well and was returned to the Same Day Surgery area in a stable condition suffering no known complication.
== END 2022-12-21 16:25 | disposition home or self-care (01) ==
PROVIDERS: PCP Family Medicine; Visit Provider Student in an Organized Health Care Education/Training Program
PROC: (CPT 26055; principal; 2022-12-21 15:15)
DX: M65.312 Trigger thumb, left thumb (principal)
CPT/HCPCS: 26055

== ENCOUNTER 2023-06-06 10:13 | Outpatient (CLI) | payer OTHER, SELFPAY ==
[2023-06-06 10:13] LABS: Hemoglobin A1C 12.1 % (<5.7)
[2023-06-06 11:28] LABS: ALT 20 U/L (14-59); AST 11 U/L (15-37); Albumin 3.6 g/dL (3.4-5.0); Alkaline Phosphatase 73 U/L (46-116); Anion Gap 7.1 mmol/L (3-11); BUN 13 mg/dL (7-18); Bilirubin, Total 0.6 mg/dL (0.2-1.0); CO2 28.9 mmol/L (21.0-32.0); CREATININE 0.7 mg/dL (0.55-1.02); Calcium 9.6 mg/dL (8.5-10.1); Calculated LDL 199 mg/dL (<100); Chloride 100 mmol/L (98-107); Cholesterol 280 mg/dL (<200); Estimated GFR 95.92 (mL/min/1.73m2); Glucose 293 mg/dL (74-106); HDL Cholesterol 63 mg/dL (40-60); Potassium 4.2 mmol/L (3.5-5.1); Sodium 136 mmol/L (136-145); Total Protein 7.4 g/dL (6.4-8.2); Triglyceride 91 mg/dL (<150); Vitamin B12 443 pg/mL (193-986)
[2023-06-06 11:45] LABS: Vitamin D 25 Total 31.1 ng/mL (30-100)
[2023-06-06 13:10] LABS: COMMENT (LAB VIEW ONLY) 133.97 mg/dL; Microalb ug/mg Crea 68.5 ug/mg Cr
== END 2023-06-06 10:14 | disposition home or self-care (01) ==
LOC: LBO 10:19
PROVIDERS: PCP Family Medicine; Visit Provider Family Medicine
DX: E11.65 Type 2 diabetes mellitus with hyperglycemia; Z79.4 Long term (current) use of insulin; E03.9 Hypothyroidism, unspecified
CPT/HCPCS: 36415; 80053; 80061; 82306; 82043; 82570; 82607; 83036; 84443

== ENCOUNTER → 2023-06-29 01:28 | Outpatient (CLI) | payer OTHER, SELFPAY ==
--- NOTE | 2023-06-29 13:27 | DI.MAMMO_ITS ---
Exam(s) MAMMO SCREENING EXAM: MAMMO SCREENING CLINICAL HISTORY: screening,z12.39. TECHNIQUE: Bilateral full field digital CC and MLO mammographic images were obtained with 3D tomosyn thesis and utilizing computer aided detection (CAD). COMPARISON: Prior mammograms were reviewed. FINDINGS: There has been no significant change in the appearance and distribution of the fibroglandular tissue. There are no CAD designations. There are no new spiculated masses nor malignant appearing microcalcification groups. There is no significant architectural distortion nor skin thickening-retraction. IMPRESSION: No radiographic evidence of malignancy. BI-RADS Category 1 - Negative Breast Density - Category B - Scattered areas of fibroglandular density Breast density Category C or D implies that the patient has dense breast tissue. Dense breast tissue can make it harder to find cancer on a mammogram. Dense breast tissue is also associated with an incr eased risk of breast cancer. This information about the result of the mammogram report was provided to the patient to raise their awareness. Use this report when you speak with the patient about their risks for breast cancer, which includes their family history. At that time, you may recommend additional screening tests (Ultrasoun d or MRI) as these tests may add significant information. A negative radiographic report should not delay biopsy if a dominant or clinically suspicious mass is present. Up to ten percent of cancers are not identified on mammography. A negative report may reinforce clinical impression. Adenosis and dense breasts may obscure an underlying neoplasm. False positive reports average 6 to 10%. Patient will receive a letter notifying them of these results.
== END ==
PROVIDERS: PCP Family Medicine; Visit Provider Family Medicine
DX: Z12.31 Encounter for screening mammogram for malignant neoplasm of breast
CPT/HCPCS: 77063; 77067

== ENCOUNTER 2023-11-14 15:17 | Emergency (ER) | payer OTHER, SELFPAY ==
[2023-11-14 15:37] VITALS: BP 189/85; PULSE 81; RESP 16; TEMP 36.5; O2SAT 98
--- NOTE | 2023-11-14 16:00 | RT.EKG_ITS ---
APPROVED REPORT Exam: Resting ECG Reason for Exam: pleuritic CP Patient Location: E HR:67 bpm ECG Measurements Heart Rate 67 AXIS IN 141 P 37 QRSd 95 QRS -31 QT 392 T [id number] QTc 416 Conclusion Sinus rhythm...normal P axis, V-rate 60- 99 LVH with secondary repolarization abnormality...multi-LVH criteria, abnrm ST-T Narrow complex normal sinus rhythm at a rate of 67. Left axis deviation LVH based on voltage criteri a in aVL. QTc within normal limits. IN within normal limits. Mild ST segment flattening in aVL. C ompared to prior dated last month mild ST segment depression in aVL slightly more pronounced. No ST segment abnormalities. No acute injury pattern.
--- NOTE | 2023-11-14 16:03 | W.ED.GENAD ---
Discharge Plan Disposition Patient Disposition: Home Condition: Stable Discharge Details Clinical Impression: Breast pain in female Primary Care Provider: Gela Alaniz ED Provider: Ervin Nichole Home Meds and New Rx's Prescriptions: Continued Collegen Powder 1 applic PO PRN ashwaojandha root extract 500 mg capsule 500 mg PO DAILY AM melatonin 5 mg capsule 5 mg PO PRN manganese 15 mg capsule 15 mg PO DAILY berberine-herbal comb no.18 Capsule 1 cap PO DAILY omega-3 fatty acids [Fish Oil Concentrate] 1,000 mg capsule 1,000 mg PO DAILY aspirin 81 mg tablet,delayed release (DR/EC) 81 mg PO DAILY Qty: 90 3RF Patient Comments: don't take very often acetylcysteine [NAC] 600 mg capsule 600 mg PO DAILY metformin 850 mg tablet 850 mg PO BID Qty: 180 4RF Rx Instructions: 1 TAB BID levothyroxine 75 mcg tablet 75 mcg PO DAILY Qty: 90 3RF iodine (kelp) 0.15 mg tablet 150 mcg PO DAILY C-PAP Hold Instructions: Pt Stopped/Never Started Patient Comments: not using Rx Instructions: [facility] 02/24/12 chlorhexidine gluconate [Hibiclens] 236 ML liquid 1 addison Topical DAILY PRNQty: 236 cholecalciferol (vitamin D3) 1,000 unit tablet 2,000 unit PO DAILY alcohol swabs [Alcohol Pads] Pads, Medicated 2 pad topical BID Qty: 200 5RF (DME) FreeStyle Lanette 2 [place] Misc See Rx Instructions .ROUTE .MEDSUPPLY Qty: 1 0RF Rx Instructions: As directed vitamin B complex Tablet 1 tab PO DAILY (DME) FreeStyle Lanette 2 Sensor Kit See Rx Instructions .ROUTE .MEDSUPPLY Qty: 2 12RF Rx Instructions: As directed insulin glargine [Lantus Solostar U-100 Insulin] 100 unit/mL (3 mL) insulin pen 28 unit subcut BID Qty: 15 12RF clotrimazole-betamethasone 1-0.05 % cream 1 applic Topical BID PRN (Reason: ERYTHEMA) Qty: 45 0RF (DME) pen needle, diabetic [Comfort EZ Pen Buchanan] 31 gauge x 3/16 needle See Rx Instructions .ROUTE .MEDSUPPLY Qty: 100 4RF Rx Instructions: As directed with Lantus urea 39 % cream 1 applic topical .QD to BID Qty: 227 3RF Rx Instructions: Apply to feet. Percentage may range from 30-40% depending on availability. [place] socks See Rx Instructions .ROUTE .COMPLEX Qty: 2 1RF Rx Instructions: apply to feet EB-N6 18-9-3-300-150 mg capsule,delayed release(DR/EC) 1 cap PO BID Qty: 180 3RF Rx Instructions: If symptom improvement after 1-month of use, may decrease to 1 tab daily. zinc sulfate [Zinc-220] 50 mg zinc (220 mg) Capsule 220 mg PO DAILY Qty: 7 0RF ascorbic acid (vitamin C) [Vitamin C With Ronna Hips] 500 MG tablet 1,000 mg PO BID Qty: 0 0RF diclofenac sodium 1 % gel 2 g topical QID PRN Rx Instructions: apply to single elbow, wrist or hand; for hand includes palm/fingers/back of hand ibuprofen 600 mg tablet 600 mg PO TID PRN (Reason: pain) Qty: 90 0RF Discharge Instructions Instructions: Breast Mass (ED), Fibrocystic Breast Changes (ED) Additional Instructions: You were seen in the emergency department for your soft tissue pain of your left upper outer quadrant of your breast. This could be fibrocystic breast disease or an early mastitis but your labs show no signs of severe infection. I recommend that you obtain an ultrasound of the soft tissue of the breast as an outpatient. We ruled out any cardiac cause as well as it is very unlikely that this is due to any pulmonary embolism or blood clot of the lungs. You may try attempting topical Voltaren gel to the area of pain and performing warm compresses to the area. Please return for any severe increase in pain especially with left arm or jaw or neck pain, dizziness, near syncope, developing cough or coughing up blood otherwise I do not suspect any emergent dangerous process. Referrals: Gela Alaniz MD [Primary Care Provider] - Discharge Data Discharge Date/Time-TO BE ENTERED AT DEPARTURE: 11/14/23 17:28 HPI General Date/Time Provider Initiated Documentation: 11/14/23 15:37. HPI Narrative: 68 year-old female presents to ED today by POV/ambulating with a chief complaint of L upper outer quadrant breast pain, possibly in the soft tissue of the breast with onset noted last night, worse when leaning forward. Quality described as tender to the touch, no radiation to shortness of breath, palpitations, hemoptysis, cough, L arm/jaw/neck symptoms, patient denies warmth to touch, redness, discharge. Severity is described as 6-7/10. Palliating factors include elevation of breast tissue. Provoking factors include leaning forward. Patient not anticoagulated. Related Data Home Medications Medication Instructions Recorded Confirmed C-Pap 07/04/14 06/07/23 chlorhexidine gluconate 4 % 1 addison topical DAILY PRN #236 mL 08/01/17 11/14/23 topical liquid (Hibiclens) cholecalciferol (vitamin D3) 25 2,000 unit PO DAILY 06/27/18 11/14/23 mcg (1,000 unit) tablet omega-3 fatty acids 1,000 mg 1,000 mg PO DAILY 12/12/18 11/14/23 capsule (Fish Oil Concentrate) alcohol swabs (Alcohol Pads) 2 pad topical BID #200 ea 09/29/20 11/14/23 Collegen Powder 1 applic PO PRN 02/23/21 11/14/23 flash glucose scanning reader #1 ea 03/08/21 06/07/23 (FreeStyle Lanette 2 [place]) ascorbic acid (vitamin C) 500 mg 1,000 mg (2 x 500 mg) PO BID #0 07/05/21 11/14/23 tablet (Vitamin C With Ronna Hips) tabs zinc sulfate 50 mg zinc (220 mg) 220 mg (4.4 x 50 mg zinc (220 mg)) 07/05/21 11/14/23 capsule (Zinc-220) PO DAILY #7 caps aspirin 81 mg tablet,delayed 81 mg PO DAILY #90 tabs 08/04/21 11/14/23 release diclofenac sodium 1 % topical gel 2 g topical QID PRN 08/16/22 11/14/23 ashwagandha root extract 500 mg 500 mg PO DAILY AM 10/21/22 11/14/23 capsule berberine-herbal comb no.18 capsule 1 cap PO DAILY 10/21/22 11/14/23 manganese 15 mg capsule 15 mg PO DAILY 10/21/22 11/14/23 melatonin 5 mg capsule 5 mg PO PRN 10/21/22 11/14/23 vitamin B complex 1 tab PO DAILY 03/24/23 04/16/24 flash glucose sensor (FreeStyle #2 ea 11/22/22 06/07/23 Lanette 2 Sensor kit) insulin glargine 100 unit/mL (3 28 unit (0.28 mL) subcut BID #15 mL 11/22/22 11/14/23 mL) subcutaneous pen (Lantus Solostar U-100 Insulin) clotrimazole-betamethasone 1 1 applic topical BID PRN ERYTHEMA 12/15/22 11/14/23 %-0.05 % topical cream #45 grams pen needle, diabetic 31 gauge x #100 ea 12/15/22 06/07/2310/13 (Comfort EZ Pen Buchanan) ibuprofen 600 mg tablet 600 mg PO TID PRN pain #90 tabs 12/21/22 11/14/23 acetylcysteine 600 mg capsule (NAC) 600 mg PO DAILY 06/07/23 11/14/23 iodine (kelp) 0.15 mg tablet 150 mcg PO DAILY 06/07/23 11/14/23 levothyroxine 75 mcg tablet 75 mcg PO DAILY #90 tab-caps 06/07/23 11/14/23 metformin 850 mg tablet 850 mg PO BID #180 tab-caps 06/07/23 11/14/23 B6 35 mg-levomefolate 3 1 cap PO BID neuropathic pain #180 06/12/23 11/14/23 mg-mecobalam 2 [id number] caps capsule del rel (EB-N6 DR) [facility] socks See Rx Instructions .Route 06/12/23 11/14/23 .COMPLEX plantar fasciitis #2 ea urea 39 % topical cream 1 applic topical .QD to BID #227 06/12/23 11/14/23 grams Previous Rx's Medication Instructions Recorded alcohol swabs (Alcohol Pads) 2 pad topical BID #200 ea 09/29/20 flash glucose scanning reader #1 ea 03/08/21 (FreeStyle Lanette 2 [place]) ascorbic acid (vitamin C) 500 mg 1,000 mg (2 x 500 mg) PO BID #0 07/05/21 tablet (Vitamin C With Ronna Hips) tabs zinc sulfate 50 mg zinc (220 mg) 220 mg (4.4 x 50 mg zinc (220 mg)) 07/05/21 capsule (Zinc-220) PO DAILY #7 caps aspirin 81 mg tablet,delayed 81 mg PO DAILY #90 tabs 08/04/21 release flash glucose sensor (FreeStyle #2 ea 11/22/22 Lanette 2 Sensor kit) insulin glargine 100 unit/mL (3 28 unit (0.28 mL) subcut BID #15 mL 11/22/22 mL) subcutaneous pen (Lantus Solostar U-100 Insulin) clotrimazole-betamethasone 1 1 applic topical BID PRN ERYTHEMA 12/15/22 %-0.05 % topical cream #45 grams pen needle, diabetic 31 gauge x #100 ea 12/15/22 3/ (Comfort EZ Pen Buchanan) ibuprofen 600 mg tablet 600 mg PO TID PRN pain #90 tabs 12/21/22 levothyroxine 75 mcg tablet 75 mcg PO DAILY #90 tab-caps 06/07/23 metformin 850 mg tablet 850 mg PO BID #180 tab-caps 06/07/23 B6 35 mg-levomefolate 3 1 cap PO BID neuropathic pain #180 06/12/23 mg-mecobalam 2 [id number] caps capsule del rel (EB-N6 DR) [place] socks See Rx Instructions .Route 06/12/23 .COMPLEX plantar fasciitis #2 ea urea 39 % topical cream 1 applic topical .QD to BID #227 06/12/23 grams Allergies Allergy/AdvReac Type Severity Reaction Status Date / Time lisinopril AdvReac Mild tickle in Verified 11/14/23 15:32 throat doxycycline AdvReac YEAST Verified 11/14/23 15:32 INFECTION erythromycin base AdvReac YEAST Verified 11/14/23 15:32 INFECTION methylprednisolone AdvReac GI UPSET Verified 11/14/23 15:32 tramadol AdvReac GI UPSET Verified 11/14/23 15:32 General Stated Complaint: Chest/Rib HALINA: 3 Review of Systems All systems reviewed & are unremarkable except as noted in HPI and below Exam Narrative Exam Narrative: GENERAL APPEARANCE: Well-nourished, non-toxic, awake and alert, atraumatic, no acute distress. SKIN: Warm, pink, dry, intact, without rashes/lesions/ulcerations. HEAD: Normocephalic, atraumatic, normal hair distribution for gender/age. EYES: Pupils PERRLA, EOMs intact without nystagmus, normal conjunctiva, no exudates on lids/lashes. ENT: Nares patent, no circumoral cyanosis, no facial swelling NECK: Supple, trachea midline, painless cervical ROM. LUNGS/CHEST: Non-labored respirations, normal A/P diameter, symmetrical expansion, no chest wall deformity, palpable nodular density in L upper outer breast tissue, no warmth to touch, not firm and irregular, consider fibrocystic change vs lymphadenopathy - chaperoned by female residential treatment staff. HEART (CV/PV): Regular rate and rhythm without murmur, no peripheral edema, no JVD. ABDOMEN: Soft, non-distended, no guarding. MSK: Normal ROM, no swelling/deformity to bilateral UEs or LEs, moving all extremities without weakness, no cyanosis, spine midline without tenderness, normal curvature. NEURO: Mental Status AAOx4 - alert to person, place, time, events No facial droop, no forehead involvement. Motor: No focal weakness - strength 5/5 in bilateral UEs and LEs, proximal and distal, symmetric. Sensory: sensation intact to light touch globally. Gait normal: patient ambulated without ataxia into ED room. PSYCH: euthymic, cooperative, pleasant, appropriate speech Course Vital Signs Vital signs: Vital Signs Temperature 36.5 C 11/14/23 15:37 Pulse 81 11/14/23 15:37 Respiratory Rate 16 11/14/23 15:37 Blood Pressure 189/85 H 11/14/23 15:37 Pulse Oximetry 98 11/14/23 15:37 Temperature 36.5 C 11/14/23 15:37 Temperature Source Temporal Artery Scan 11/14/23 15:37 Pulse 81 11/14/23 15:37 Respiratory Rate 16 11/14/23 15:37 Respiratory Effort Normal, Non-Labored 11/14/23 15:40 Blood Pressure 189/85 H 11/14/23 15:37 Blood Pressure Position Sitting 11/14/23 15:37 Pulse Oximetry 98 11/14/23 15:37 Oxygen Delivery Method Room Air 11/14/23 15:37 Oxygen Flow Rate 0 11/14/23 15:37 Pain Level 0 11/14/23 15:37 Comment 8/10 when pressed or lean forward 11/14/23 15:37 Medical Decision Making This dictation utilizes [id number] dictation software and may contain unedited grammatical errors. 68 y/o F presents to ED today with a chief complaint of tender area in soft tissue of the L breast, upper outer quadrant since last night, worse with leaning forward, relief with elevation- with a nodular mobile round area of density to palpation, no redness or discharge, no red flags for coronary or pulmonary causes. Patients' medical history: Obstructive sleep apnea, type 2 diabetes mellitus, neuropathy, hypertension, hyperlipidemia, obesity, pulmonary hypertension, unspecified cardiac arrhythmia. Family and social history: noncontributory. Pertinent exam findings / vital signs include tender nodular area that is round and mobile in the left upper outer quadrant of the left breast, no warmth to touch, no discharge, no signs of fluctuant abscess, benign cardiopulmonary exam. Differential / pathologies of concern include fibrocystic breast disease, lymphadenopathy, less likely mastitis, unlikely chest wall pain or PE or ACS. Diagnostic studies of: -CBC, CMP, D-dimer, troponin, BNP, CRP/ESR -CBC benign -CMP benign -D-dimer age adjusted negative -Trop neg with reliable onset -BNP benign -CRP/ESR neg Interventions of: -recommend outpatient US of breast tissue. ED Course/Assessment/Plan: 68-year-old female presents with left upper outer quadrant breast pain worse with leaning over, unlikely to be chest wall as the source or pulmonary or coronary, reliable onset with negative troponin, D-dimer adjusted negative, I do suspect possible fibrocystic breast change or very early mastitis with local reactive lymphadenopathy. I suggest the patient get a nonradiating study as definitive outpatient follow-up for ultrasound of her left breast tissue. Strict return for shortness of breath, chest pain with dizziness/diaphoresis, near syncope. Findings not consistent with ACS, PE, mastitis or significant cellulitis. Disposition of breast pain in female. Patient verbalized understanding of the plan and return to ED criteria and engaged in shared decision making. Medical Records Medical records reviewed: Yes I reviewed the patient's medical records. Lab Data Lab results reviewed: Yes I reviewed the patient's lab results. Labs: Laboratory Tests Range/Units 11/14/23 16:22 WBC (4.4-10.8) 10^3/uL 7.36 RBC (3.93-5.22) 10^6/uL 5.20 Hgb (11.2-15.7) g/dL 14.4 Hct (36.0-46.0) % 43.4 MCV (80-95) fL 84 MCH (27.0-33.0) pg 27.7 MCHC (32.0-36.0) % 33.2 RDW (11.7-14.6) % 13.3 Plt Count (130-400) 10^3/uL 258 MPV (8.0-11.0) fL 10.6 Immature Gran % 0.3 Neutrophils % 59.9 Lymphocytes % 32.1 Monocytes % 5.7 Eosinophils % 1.6 Basophils % 0.4 Nucleated RBC % (0.0-0.3) % 0.0 Absolute Neutrophils (1.2-6.7) 10^3/uL 4.41 Absolute Lymphocytes (1.2-3.4) 10^3/uL 2.36 Absolute Monocytes (0.1-0.8) 10^3/uL 0.42 Absolute Eosinophils (0.0-0.7) 10^3/uL 0.12 Absolute Basophils (0.0-0.2) 10^3/uL 0.03 D-Dimer (<500) ng/mlFEU 540 H Sodium (136-145) mmol/L 138 Potassium (3.5-5.1) mmol/L 4.2 Chloride (98-107) mmol/L 102 Carbon Dioxide (21.0-32.0) mmol/L 28.1 Anion Gap (3-11) mmol/L 7.9 BUN (7-18) mg/dL 14 Creatinine (0.55-1.02) mg/dL 0.7 Est GFR (CKD-EPI 2020) (mL/min/1.73m2) 95.32 Glucose (74-106) mg/dL 234 H Calcium (8.5-10.1) mg/dL 9.0 Total Bilirubin (0.2-1.0) mg/dL 0.4 AST (15-37) U/L 11 L ALT (14-59) U/L 24 Alkaline Phosphatase (46-116) U/L 86 Troponin I (< or =60) ng/L < 50 C-Reactive Protein (<or=0.5) mg/dL < 0.50 NT-Pro-B Natriuret Pep (<300) pg/mL 189 Total Protein (6.4-8.2) g/dL 7.3 Albumin (3.4-5.0) g/dL 3.5 Quality:SDOH Health Related Social Needs: No Data to Display PFSH All Active Problems (Updated 11/14/23 @ 17:11 by NEVIN Duarte) Breast pain in female (Acute) Type 2 diabetes mellitus with microalbuminuria, with long-term current use of insulin (Acute) Venous insufficiency (Acute) Neuritis of right foot (Acute) Neuropathy (Acute) Plantar fasciitis (Acute) Corns and callosities (Acute) Achilles tendinitis of both lower extremities (Acute) Essential hypertension (Acute 07/26/13) Hyperlipidemia (Acute) pt declines RX/ LDL>160 (-2019) Hypothyroidism (Acute 11/01/12) Vitamin D deficiency (Acute) Obesity (BMI 30-39.9) (Chronic) Uncontrolled diabetes mellitus with diabetic neuropathy, with long-term current use of insulin (Acute ~2008) using CGM with improvement Pulmonary hypertension (Acute 09/09/19) Cubital tunnel syndrome on left (Acute) Bilateral carpal tunnel syndrome (Acute) Trigger thumb of left hand (Acute) Depo-medrol injection: 05/23/22 S/P Release: 12/21/2022 Cardiac arrhythmia, unspecified (Acute) Medical History Pneumonia due to COVID-19 virus COVID-19 06/2021-associated with pneumonia and hospitalization at [facility] H Depressive disorder Obstructive [place] [facility] [place]12 at [facility], severe sleep apnea. 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 Sister No problems noted. Sister Depression Grandfather Stroke Grandfather No problems noted. Grandmother Personal history of malignant neoplasm BREAST Grandmother No problems noted. 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 [employer] Pets and animals: Yes Pets and animals: other Details: rabbit Sexually active: No Do you think of yourself as: straight/heterosexual Current gender identity: female What is your relationship status?: never How often do you talk on the phone with friends or family?: once per week How often do you get together with friends or relatives?: once per week How often do you attend jainism or adventism services?: 4 or more times per year Panel score (0-1 are the most socially isolated patients): 1 NHANES result reviewed/action taken: Yes What type of physical activity do you participate in: walking Duration: < 15 minutes/day Frequency: 1-2 times per week Ludmila/Samaritan: Faith Seatbelt use: always Helmet use: No Drive intox or ride w/intox nascar driver: No Working smoke detector in home: Yes Firearms in home: No Do you feel safe at home: Yes Do you feel safe in your relationship?: Yes
[2023-11-14 16:29] LABS: Abs Immature Grans 0.02 10^3/uL (0.0-0.06); Absolute Basophil Count 0.03 10^3/uL (0.0-0.2); Absolute Eosinophil Count 0.12 10^3/uL (0.0-0.7); Absolute Lymphocyte Count 2.36 10^3/uL (1.2-3.4); Absolute Monocyte Count 0.42 10^3/uL (0.1-0.8); Absolute Neutrophil Count 4.41 10^3/uL (1.2-6.7); Basophils % 0.4; Eosinophils % 1.6; HCT 43.4 % (36.0-46.0); HGB 14.4 g/dL (11.2-15.7); Immature Grans % 0.3; Lymphocytes % 32.1; MCH 27.7 pg (27.0-33.0); MCHC 33.2 % (32.0-36.0); MCV 84 fL (80-95); MPV 10.6 fL (8.0-11.0); Monocytes % 5.7; Neutrophils % 59.9; Platelet Count 258 10^3/uL (130-400); RDW 13.3 % (11.7-14.6); RDW-SD 40.8 fL; WBC 7.36 10^3/uL (4.4-10.8)
[2023-11-14 16:52] LABS: ALT 24 U/L (14-59); AST 11 U/L (15-37); Albumin 3.5 g/dL (3.4-5.0); Alkaline Phosphatase 86 U/L (46-116); Anion Gap 7.9 mmol/L (3-11); BUN 14 mg/dL (7-18); Bilirubin, Total 0.4 mg/dL (0.2-1.0); CO2 28.1 mmol/L (21.0-32.0); CREATININE 0.7 mg/dL (0.55-1.02); Chloride 102 mmol/L (98-107); Estimated GFR 95.32 (mL/min/1.73m2); Glucose 234 mg/dL (74-106); NT-proBNP 189 pg/mL (<300); Potassium 4.2 mmol/L (3.5-5.1); Sodium 138 mmol/L (136-145); Total Protein 7.3 g/dL (6.4-8.2); Troponin I < 50 ng/L (< or =60)
[2023-11-14 16:53] LABS: C-Reactive Protein < 0.50 mg/dL (<or=0.5)
[2023-11-14 16:59] LABS: D-Dimer 540 ng/mlFEU (<500)
== END 2023-11-14 17:28 | disposition home or self-care (01) ==
PROVIDERS: Emergency Provider Physician Assistant; PCP Family Medicine
DX: N64.4 Mastodynia (principal); E11.40 Type 2 diabetes mellitus with diabetic neuropathy, unspecified; I10 Essential (primary) hypertension; E78.5 Hyperlipidemia, unspecified; Z79.4 Long term (current) use of insulin; Z79.84 Long term (current) use of oral hypoglycemic drugs; Z79.82 Long term (current) use of aspirin
CPT/HCPCS: 80053; 93005; 99283; 83880; 84484; 85025; 85379; 86140; 93010

== ENCOUNTER 2024-06-26 03:11 | Outpatient (CLI) | payer OTHER, SELFPAY ==
[2024-06-26 09:49] LABS: ESR 29 mm/hr (0-30)
[2024-06-26 10:04] LABS: Hemoglobin A1C 12.4 % (<5.7)
[2024-06-26 11:08] LABS: ALT 20 U/L (14-59); AST 12 U/L (15-37); Albumin 3.2 g/dL (3.4-5.0); Alkaline Phosphatase 81 U/L (46-116); Anion Gap 7.9 mmol/L (3-11); BUN 12 mg/dL (7-18); Bilirubin, Total 0.71 mg/dL (0.2-1.0); CO2 26.1 mmol/L (21.0-32.0); CREATININE 0.7 mg/dL (0.55-1.02); Calcium 9.6 mg/dL (8.5-10.1); Calculated LDL 183 mg/dL (<100); Chloride 103 mmol/L (98-107); Cholesterol 261 mg/dL (<200); Estimated GFR 95.32 (mL/min/1.73m2); Glucose 189 mg/dL (74-106); HDL Cholesterol 52 mg/dL (40-60); Potassium 4.3 mmol/L (3.5-5.1); Sodium 137 mmol/L (136-145); TSH (W/Ref FT4) 3.66 uIU/mL (0.36-3.74); Triglyceride 133 mg/dL (<150); Vitamin D 25 Total 24.9 ng/mL (30-100)
[2024-06-26 15:53] LABS: COMMENT (LAB VIEW ONLY) 70.86 mg/dL
[2024-06-26 15:55] LABS: Microalb ug/mg Crea 136.9 ug/mg Cr
[2024-06-26 17:53] LABS: CRP, High Sensitivity 7.71 mg/L (See Note)
== END 2024-06-26 03:12 | disposition home or self-care (01) ==
LOC: LBO 03:11
PROVIDERS: PCP Family Medicine; Visit Provider Family Medicine
DX: E11.9 Type 2 diabetes mellitus without complications (principal); E11.29 Type 2 diabetes mellitus with other diabetic kidney complication; R80.9 Proteinuria, unspecified; Z79.4 Long term (current) use of insulin; E11.40 Type 2 diabetes mellitus with diabetic neuropathy, unspecified; E11.65 Type 2 diabetes mellitus with hyperglycemia; E66.01 Morbid (severe) obesity due to excess calories; Z68.41 Body mass index [BMI] 40.0-44.9, adult; E03.9 Hypothyroidism, unspecified
CPT/HCPCS: 36415; 80053; 80061; 82306; 85652; 86141; 82043; 82570; 83036; 84443

== ENCOUNTER 2024-07-30 14:15 | Outpatient (CLI) | payer OTHER, SELFPAY ==
--- NOTE | 2024-07-30 13:00 | DI.RAD_ITS ---
Exam(s) XR CHEST 2V PA LATERAL EXAM: XR CHEST 2V PA LATERAL CLINICAL HISTORY: Cough R05.9 TECHNIQUE: 2D digital imaging was performed. Two views. COMPARISON: CR XR PORTABLE CHEST AP from 07/02/[address] CHEST PE CTA from 08/16/2022 FINDINGS: HEART: Normal size. Aorta: Not dilated. PULMONARY VASCULATURE: Normal. MEDIASTINUM: Unremarkable. LUNGS: Clear. PLEURAL SPACE: No pleural effusion or pneumothorax. BONE:Unremarkable for age. SOFT TISSUES: Unremarkable. IMPRESSION: No acute abnormality. DATA REPOSITORY: RADIATION DOSE DELIVERED:
== END 2024-07-30 14:35 ==
LOC: DI 14:16
PROVIDERS: PCP Family Medicine; Visit Provider Family Medicine
DX: R05.9 Cough, unspecified (principal)
CPT/HCPCS: 71046

== ENCOUNTER 2024-12-26 03:28 | Outpatient (CLI) | payer OTHER, SELFPAY ==
--- NOTE | 2024-12-26 12:57 | W.NUTRFU ---
Date of service: 12/26/24 Time of Service: 11:30 Nutrition Note NOTE: Emmy referred to nutrition visit for diabetes education/mgt - has been administering basal insulin (reports now at 50u BID of lantus) and plans to begin mealtime insulin at the indication of her provider - plans to start new insulin on 12/29. Also, due to insurance changes, is required to transition from Libre3 CGM to Dexcom G7. Her provider also indicated that patient should start adding carb coverage to her correction dose at meals as she learns how to estimate and adjust accordingly. A1c 12/20/24 was 11.5 and historically 10.0 or greater for at least the last 6 years. Emmy reports often tired, especially in the early evening and it is not uncommon for her to fall asleep in the recliner and miss her evening metformin and lantus doses. Diet interview reveals less than optimal protein intake and lower fiber intake outside of usual lunch meal. We started by reviewed insulin administration and printed out a correction scale for her to use at meals to start with - let her know that this scale will most likely need to be adjusted based on her 2hour post meal readings. We discussed carbs briefly and she can start at 1:15 ratio of insulin to carb. Even if she just added 1-2 units to her correction amount to cover carbs at a meal would be a good start until she can get better at estimating. We reviewed handout for looking at various standard serving sizes for CHO that are 15 grams. We discussed activity/exercise, sleep and stress mgt and how glucose control influenced significantly by this. Emmy knows how to contact me if she has any questions or need for clarification/help with CGM. I will check in regularly as we work at the same facility and offer follow ups and ask how diet and insulin coverage is going. Time Spent in Nutritional Counseling and Treatment: 45 min
== END 2024-12-26 03:29 | disposition home or self-care (01) ==
LOC: DS 03:28
PROVIDERS: PCP Family Medicine; Visit Provider Dietitian, Registered
DX: E11.40 Type 2 diabetes mellitus with diabetic neuropathy, unspecified (principal); Z79.4 Long term (current) use of insulin
CPT/HCPCS: 00123; 97802

== ENCOUNTER 2025-03-24 15:42 | Outpatient (CLI) | payer OTHER, SELFPAY ==
--- NOTE | 2025-03-24 13:09 | DI.RAD_ITS ---
Exam(s) XR HAND LT COMPLETE EXAM: XR HAND LT COMPLETE CLINICAL HISTORY: left hand pain. TECHNIQUE: 2D digital imaging was performed of the left hand. Three views were obtained. AP, lateral and oblique views were obtained. COMPARISON: CR XR THUMB LT from 12/31/2021 FINDINGS: BONES: No acute fracture is present. No bony destructive lesion is seen. JOINTS: No dislocation present. There are mild degenerative changes seen in the interphalangeal joints. SOFT TISSUE: Normal. IMPRESSION: Mild degenerative changes of the left hand. DATA REPOSITORY: RADIATION DOSE DELIVERED:
--- NOTE | 2025-03-24 13:15 | DI.RAD_ITS ---
Exam(s) XR HAND RT COMPLETE EXAM: XR HAND RT COMPLETE CLINICAL HISTORY: eval R hand pain. TECHNIQUE: 2D digital imaging was performed of the right hand. Three images were obtained. AP, lateral and oblique views were obtained. COMPARISON: CR RIGHT HAND COMPLETE from 12/05/2017 FINDINGS: BONES: No acute fracture is present. No bony destructive lesion is seen. JOINTS: No dislocation present. The joint spaces are well maintained apart from mild joint space narrowing of a few of the interphalangeal joints. SOFT TISSUE: Normal. IMPRESSION: Mild degenerative changes of the right hand. DATA REPOSITORY: RADIATION DOSE DELIVERED:
== END 2025-03-24 15:43 | disposition home or self-care (01) ==
LOC: DIORS 15:42
PROVIDERS: PCP Family Medicine; Visit Provider Student in an Organized Health Care Education/Training Program
DX: X50.3XXA Overexertion from repetitive movements, initial encounter (principal); M79.641 Pain in right hand; M19.042 Primary osteoarthritis, left hand; M19.041 Primary osteoarthritis, right hand
CPT/HCPCS: 73130

== ENCOUNTER 2025-07-22 07:13 | Outpatient (CLI) | payer OTHER, SELFPAY ==
[2025-07-22 11:02] LABS: Hemoglobin A1C 8.3 % (<5.7)
[2025-07-22 11:06] LABS: ALT 17 U/L (10-49); AST 18 U/L (<34); Albumin 4.1 g/dL (3.2-5.0); Alkaline Phosphatase 76 U/L (46-116); Anion Gap 8 mmol/L (3-11); BUN 18 mg/dL (9-23); Bilirubin, Total 0.5 mg/dL (0.2-1.2); CO2 28.0 mmol/L (20.0-31.0); Calcium 9.1 mg/dL (8.3-10.6); Chloride 107 mmol/L (98-107); Cholesterol 242 mg/dL (<200); Glucose 190 mg/dL (74-106); HDL Cholesterol 56 mg/dL (>or=50); Potassium 4.2 mmol/L (3.5-5.1); Sodium 143 mmol/L (136-145); Total Protein 6.9 g/dL (5.7-8.2)
[2025-07-22 16:22] LABS: Microalb ug/mg Crea 152.5 ug/mg Cr
== END 2025-07-22 07:14 | disposition home or self-care (01) ==
LOC: LBO 07:14
PROVIDERS: PCP Family Medicine; Visit Provider Family Medicine
DX: E11.9 Type 2 diabetes mellitus without complications (principal); E11.29 Type 2 diabetes mellitus with other diabetic kidney complication; R80.9 Proteinuria, unspecified; Z79.4 Long term (current) use of insulin
CPT/HCPCS: 36415; 80053; 80061; 82043; 82570; 83036

== ENCOUNTER → 2025-07-29 11:05 | Outpatient (CLI) | payer OTHER, SELFPAY ==
--- NOTE | 2025-07-29 11:25 | DI.MAMMO_ITS ---
Exam(s) MAMMO SCREENING EXAM: MAMMO SCREENING CLINICAL HISTORY: screening,z12.39 TECHNIQUE: Mammograms were interpreted according to the usual protocol including computer analysis with CAD system, tomosynthesis and C-view imaging. COMPARISON: 2016 through 2022 FINDINGS: The breasts are composed of mainly fatty density , Breast Density category A. No suspicious masses or suspicious microcalcifications are seen. No skin thickening or abnormal axillary lymph nodes are seen. There has been no significant change from prior exams. IMPRESSION: BI-RADS Category 1, Negative mammogram Yearly screening mammography is recommended. Breast Density- Category A - The breast are almost entirely fatty. Breast density Category C or D implies that the patient has dense breast tissue. Dense breast tissue can make it harder to find cancer on a mammogram. Dense breast tissue is also associated with an increased risk of breast cancer. This information about the result of the mammogram report was provided to the patient to raise their awareness. Use this report when you speak with the patient about their risks for breast cancer, which includes their family history. At that time, you may recommend additional screening tests (Ultrasound or MRI) as these tests may add significant information. A negative radiographic report should not delay biopsy if a dominant or clinically suspicious mass is present. Up to ten percent of cancers are not identified on mammography. A negative report may reinforce clinical impression. Adenosis and dense breasts may obscure an underlying neoplasm. False positive reports average 6 to 10%. Patient will receive a letter notifying them of these results.
== END ==
LOC: DI 11:05
PROVIDERS: PCP Family Medicine; Visit Provider Family Medicine
DX: Z12.31 Encounter for screening mammogram for malignant neoplasm of breast (principal); R92.313 Mammographic fatty tissue density, bilateral breasts
CPT/HCPCS: 77063; 77067